=== PATIENT | female | born 1960 | race Caucasian/White ===

== ENCOUNTER 2019-12-10 17:16 | Emergency (ER) | payer SELFPAY ==
[2019-12-10] MEDS ORDERED: HYDRALAZINE HCL 20 MG/ML VIAL ONE (17:56)
[2019-12-10 18:13] LABS: Basophils % 0.8 % (0-1.3); Hematocrit 49.1 % (36.0-45.0); MPV 8.8 fL (7.6-11.3); RBC Red Blood Cell Count 5.07 M/uL (3.86-4.86)
[2019-12-10 18:15] LABS: Protime INR 0.92
--- NOTE | 2019-12-10 18:29 | RAD REPORT ---
EXAM DESCRIPTION: CT - Head Brain Wo Cont - 12/10/2019 6:14 pm CLINICAL HISTORY: Dizziness COMPARISON: None TECHNIQUE: Computed axial tomography of the head was obtained. IV contrast was not requested. All CT scans are performed using dose optimization technique as appropriate and may include automated exposure control or mA/KV adjustment according to patient size. FINDINGS: An intracranial bleed is not seen . The ventricles are normal in caliber. No extra-axial fluid collection is noted. Mioderate low-density areas within periventricular, deep and subcortical white matter likely represen t ischemic changes secondary to small vessel disease. Fluid within the sinuses/ mastoids is not seen. IMPRESSION: No acute intracranial abnormality is seen. If patient's symptoms persist MRI of the bra in would be recommended.
[2019-12-10 18:30] LABS: ALT/SGPT 50 U/L (12-78); AST/SGOT 20 U/L (15-37); Albumin 4.5 g/dL (3.4-5.0); Alkaline Phosphatase 96 U/L (45-117); BUN Blood Urea Nitrogen 13 mg/dL (7-18); Bicarbonate 27 mmol/L (21-32); Bilirubin Direct 0.1 mg/dL (0-0.2); Bilirubin Total 0.3 mg/dL (0.2-1.0); Glucose Level 104 mg/dL (74-106); Magnesium 2.6 mg/dL (1.8-2.4); NT PRO-BNP 62 pg/mL (<125); Potassium 3.6 mmol/L (3.5-5.1); Protein, Total 8.8 g/dL (6.4-8.2); Sodium Level 140 mmol/L (136-145); Troponin (Emerg Dept Use Only) < 0.02 ng/mL (0.0-0.045)
--- NOTE | 2019-12-10 18:30 | RAD REPORT ---
EXAM DESCRIPTION: Sukhwinder Single View12/10/2019 6:24 pm CLINICAL HISTORY: Hypertension COMPARISON: none FINDINGS: The lungs appear clear of acute infiltrate. The heart is normal size IMPRESSION: No acute abnormalities displayed
[2019-12-10] MEDS ORDERED: DIAZEPAM 5 MG TABLET ONE (18:48)
[2019-12-10] MEDS ORDERED: MECLIZINE HCL 12.5 MG TAB ONE (18:48)
--- NOTE | 2019-12-10 19:17 | ER ---
Nurse's Notes [facility] Name: Natacha Villalba Age: 59 yrs Sex: Female : 1960 Arrival Date: 12/10/2019 Time: 17:17 Bed 13 Private MD: Diagnosis: Dizziness and giddiness;Hypertensive heart disease Presentation: 12/09 17:28 Chief complaint: Patient states: Dizziness worse than usual for the past 4 days with ll1 EDGAR. No fever. No N/V/D. Coronavirus screen: Client denies travel out of the [place] in the last 14 days. At this time, the client does not indicate any symptoms associated with coronavirus-19. Ebola Screen: Patient denies travel to an Ebola-affected area in the 21 days before illness onset. Initial Sepsis Screen: Does the patient meet any 2 criteria? HR > 90 bpm. Risk Assessment: Do you want to hurt yourself or someone else? Patient reports no desire to harm self or others. Onset of symptoms was December 06, 2019. 17:28 Method Of Arrival: Wheelchair ll1 17:28 Acuity: UGO 2 ll1 Triage Assessment: 17:30 General: Appears distressed, uncomfortable, Behavior is cooperative, appropriate for bp age, anxious. Pain: Complains of pain in head. EENT: No deficits noted. Neuro: Reports dizziness, headache. Cardiovascular: No deficits noted. Respiratory: No deficits noted. GI: No signs and/or symptoms were reported involving the gastrointestinal system. : No signs and/or symptoms were reported regarding the genitourinary system. Derm: No deficits noted. Musculoskeletal: No deficits noted. Historical: - Allergies: 17:30 PENICILLINS; ll1 - PMHx: 17:30 Hypertension; tachycardia; ll1 - PSHx: 17:30 Tubal ligation; ll1 - Immunization history:: Flu vaccine is not up to date. - Social history:: Smoking status: Patient reports the use of cigarette tobacco products, smokes one-half pack cigarettes per day. Screenin:30 Abuse screen: Denies threats or abuse. Denies injuries from another. Nutritional bp screening: No deficits noted. Tuberculosis screening: No symptoms or risk factors identified. Fall Risk None identified. Assessment: 17:30 General: SEE TRIAGE NOTE. bp 18:00 Reassessment: PT TO CT. bp 18:26 Reassessment: PT RETURNED FROM CT. bp 19:10 General: Appears in no apparent distress. comfortable, Behavior is calm, cooperative, rr5 appropriate for age, EDprovider aware for the BP reading with order made and carried out. Pain: Denies pain. Neuro: Level of Consciousness is awake, alert, obeys commands, Oriented to person, place, time, situation, Reports dizziness. Cardiovascular: Capillary refill < 3 seconds Patient's skin is warm and dry. Respiratory: Airway is patent Respiratory effort is even, unlabored, Respiratory pattern is regular, symmetrical. GI: No signs and/or symptoms were reported involving the gastrointestinal system. : No signs and/or symptoms were reported regarding the genitourinary system. EENT: No signs and/or symptoms were reported regarding the EENT system. Derm: Skin is intact, is healthy with good turgor, Skin temperature is warm. Musculoskeletal: Circulation, motion, and sensation intact. Capillary refill < 3 seconds. 19:47 Reassessment: Patient appears in no apparent distress at this time. Patient is alert, rr5 oriented x 3, equal unlabored respirations, skin warm/dry/pink. discharge instruction given and explained without complaints made. ED provider explained the plan of care and patient agreed\E\ Patient states feeling better. Patient states symptoms have improved. Vital Signs: 17:28 BP 226 / 113; Pulse 98; Resp 18; Temp 99.0; Pulse Ox 95% ; Weight 63.5 kg; Height 5 ft. ll1 3 in. (160.02 cm); Pain 6/10; 18:30 BP 196 / 82; Pulse 105; Resp 20; Pulse Ox 95% ; bp 19:00 BP 187 / 81; Pulse 110; Resp 17; Pulse Ox 94% ; bp 19:16 BP 188 / 82; Pulse 108; Resp 16; Pulse Ox 99% ; rr5 19:47 BP 181 / 82; Pulse 99; Resp 19; Pulse Ox 99% ; rr5 17:28 Body Mass Index 24.80 (63.50 kg, 160.02 cm) ll1 ED Course: 17:17 Patient arrived in ED. ds1 17:30 Triage completed. ll1 17:30 Patient has correct armband on for positive identification. Bed in low position. Call bp light in reach. Side rails up X2. Adult w/ patient. 17:31 Arm band placed on Patient placed in an exam room, on a stretcher. ll1 17:40 Foreign Mccrary MD is Attending Physician. kdr 17:42 Ze Lopez, RN is Primary Nurse. bp 18:00 EKG done, by ED staff, reviewed by Foreign Mccrary MD. jp3 18:04 Initial lab(s) drawn, by ga, sent to lab. Inserted saline lock: 20 gauge in right jp3 antecubital area, using aseptic technique. Blood collected. 18:10 X-ray(s) taken. jp3 19:35 Removal of peripheral IV. Catheter intact, dressing applied. jp3 Administered Medications: 17:45 Drug: hydrALAZINE 10 mg Route: IV; Rate: calculated rate; Site: right antecubital; bp 19:00 Follow up: Response: Blood pressure is lowered; IV Status: Completed infusion rr5 18:30 Drug: Valium 5 mg Route: PO; bp 19:48 Follow up: Response: No adverse reaction rr5 18:30 Drug: Antivert 25 mg Route: PO; bp 19:48 Follow up: Response: No adverse reaction rr5 19:16 Drug: Lisinopril 10 mg Route: PO; rr5 19:48 Follow up: Response: No adverse reaction rr5 Outcome: 19:15 Discharge ordered by . kdr 19:48 Patient left the ED. rr5 Signatures: Foreign Mccrary MD MD kdr Amarilys Salas ds1 Ze Lopez, RN RN bp Kavon Martinez jp3 Mode Stanley RN RN rr5 Constantino Pérez RN RN ll1 Corrections: (The following items were deleted from the chart) 17:34 17:28 Acuity: UGO 3 ll1 ll1
--- NOTE | 2019-12-10 19:17 | EDPHYS ---
Physician Documentation [facility] Name: Natacha Villalba Age: 59 yrs Sex: Female : 1960 Arrival Date: 12/10/2019 Time: 17:17 Bed 13 Private MD: ED Physician Foreign Mccrary HPI: 12/10 08:29 This 59 yrs old Female presents to ER via Wheelchair with complaints of kdr Dizziness. 08:29 The patient presents with dizziness, feeling off balance, vertigo. Onset: The kdr symptoms/episode began/occurred gradually, 4 day(s) ago. Context: occurred at home, occurred while the patient was at rest, just prior to the episode the patient experienced no apparent symptoms. Modifying factors: The symptoms are alleviated by holding head still, the symptoms are aggravated by movement of head, standing up. Associated signs and symptoms: Pertinent positives: nausea, Pertinent negatives: abdominal pain, agitation, ataxia, blurred vision, chest pain, combativeness, confusion, diaphoresis, focal weakness, head injury, headache, near-syncope, numbness, palpitations, , seizure, shortness of breath, syncope, tingling, vomiting. Severity of symptoms: At their worst the symptoms were mild moderate just prior to arrival, in the emergency department the symptoms are unchanged. Patient's baseline: Neuro: alert and fully oriented, Motor: no deficits, Ambulation: walks without assistance, Speech: normal, The patient has a previous history of The patient has a long history of intermittent. The episode today is not more severe but has been more persistent. She normally has these similar episodes that last a few days but this episode had been ongoing (wax/wane) for about four days.. The patient has experienced similar episodes in the past, multiple times. The patient has not recently seen a physician. Historical: - Allergies: 12/09 17:30 PENICILLINS; ll1 - PMHx: 17:30 Hypertension; tachycardia; ll1 - PSHx: 17:30 Tubal ligation; ll1 - Immunization history:: Flu vaccine is not up to date. - Social history:: Smoking status: Patient reports the use of cigarette tobacco products, smokes one-half pack cigarettes per day. ROS: 12/10 08:29 Constitutional: Negative for fever, chills, and weight loss, Eyes: Negative for injury, kdr pain, redness, and discharge, ENT: Negative for injury, pain, and discharge, Neck: Negative for injury, pain, and swelling, Cardiovascular: Negative for chest pain, palpitations, and edema, Respiratory: Negative for shortness of breath, cough, wheezing, and pleuritic chest pain, Abdomen/GI: Negative for abdominal pain, nausea, vomiting, diarrhea, and constipation, Back: Negative for injury and pain, : Negative for injury, bleeding, discharge, and swelling, MS/Extremity: Negative for injury and deformity, Skin: Negative for injury, rash, and discoloration, Psych: Negative for depression, anxiety, suicide ideation, homicidal ideation, and hallucinations, Allergy/Immunology: Negative for hives, rash, and allergies, Endocrine: Negative for neck swelling, polydipsia, polyuria, polyphagia, and marked weight changes, Hematologic/Lymphatic: Negative for swollen nodes, abnormal bleeding, and unusual bruising. Neuro: Positive for dizziness, Negative for altered mental status, headache, hearing loss, loss of consciousness, numbness, seizure activity, speech changes, syncope, near syncope, tingling, tinnitus, tremor, visual changes, weakness. Exam: 12/09 18:04 ECG was reviewed by the Attending Physician. kdr 12/10 08:29 Constitutional: This is a well developed, well nourished patient who is awake, alert, kdr and in no acute distress. Head/Face: Normocephalic, atraumatic. Eyes: Pupils equal round and reactive to light, extra-ocular motions intact. Lids and lashes normal. Conjunctiva and sclera are non-icteric and not injected. Cornea within normal limits. Periorbital areas with no swelling, redness, or edema. Neck: Trachea midline, no thyromegaly or masses palpated, and no cervical lymphadenopathy. Supple, full range of motion without nuchal rigidity, or vertebral point tenderness. No Meningismus. Chest/axilla: Normal chest wall appearance and motion. Nontender with no deformity. No lesions are appreciated. Cardiovascular: Regular rate and rhythm with a normal S1 and S2. No gallops, murmurs, or rubs. Normal PMI, no JVD. No pulse deficits. Respiratory: Lungs have equal breath sounds bilaterally, clear to auscultation and percussion. No rales, rhonchi or wheezes noted. No increased work of breathing, no retractions or nasal flaring. Abdomen/GI: Soft, non-tender, with normal bowel sounds. No distension or tympany. No guarding or rebound. No evidence of tenderness throughout. Back: No spinal tenderness. No costovertebral tenderness. Full range of motion. Skin: Warm, dry with normal turgor. Normal color with no rashes, no lesions, and no evidence of cellulitis. MS/ Extremity: Pulses equal, no cyanosis. Neurovascular intact. Full, normal range of motion. Neuro: Awake and alert, GCS 15, oriented to person, place, time, and situation. Cranial nerves II-XII grossly intact. Motor strength 5/5 in all extremities. Sensory grossly intact. Cerebellar exam normal. Normal gait. Psych: Awake, alert, with orientation to person, place and time. Behavior, mood, and affect are within normal limits. Eyes: Pupils: Nystagmus: is not appreciated. Vital Signs: 12/09 17:28 BP 226 / 113; Pulse 98; Resp 18; Temp 99.0; Pulse Ox 95% ; Weight 63.5 kg; Height 5 ft. ll1 3 in. (160.02 cm); Pain 6/10; 18:30 BP 196 / 82; Pulse 105; Resp 20; Pulse Ox 95% ; bp 19:00 BP 187 / 81; Pulse 110; Resp 17; Pulse Ox 94% ; bp 19:16 BP 188 / 82; Pulse 108; Resp 16; Pulse Ox 99% ; rr5 19:47 BP 181 / 82; Pulse 99; Resp 19; Pulse Ox 99% ; rr5 17:28 Body Mass Index 24.80 (63.50 kg, 160.02 cm) ll1 MDM: 19:15 Patient medically screened. kdr 12/10 08:29 Data reviewed: vital signs, nurses notes, lab test result(s), radiologic studies. kdr Counseling: I had a detailed discussion with the patient and/or guardian regarding: the historical points, exam findings, and any diagnostic results supporting the discharge/admit diagnosis, lab results, radiology results, the need for outpatient follow up. ED course: The patient improved substantially with the interventions given. She did not completely resolved but improved. She was happy with the care provided and the plan for discharge and follow-up.. 12/09 17:41 Order name: Basic Metabolic Panel; Complete Time: 18:54 kdr 12/09 17:41 Order name: CBC with Diff; Complete Time: 18:54 [facility] 12/09 17:41 Order name: LFT's; Complete Time: 18:54 [facility] 12/09 17:41 Order name: Magnesium; Complete Time: 18:54 [facility] 12/09 17:41 Order name: NT PRO-BNP; Complete Time: 18:54 [facility] 12/09 17:41 Order name: PT-INR; Complete Time: 18:54 [facility] 12/09 17:41 Order name: Troponin (emerg Dept Use Only); Complete Time: 18:54 [facility] 12/09 17:41 Order name: XRAY Chest (1 view) kdr 12/09 17:41 Order name: CT Head Brain wo Cont kdr 12/09 18:30 Order name: CT; Complete Time: 18:54 EDMS 12/09 18:31 Order name: RAD; Complete Time: 18:54 EDMS 12/09 17:41 Order name: EKG; Complete Time: 17:42 [facility] 12/09 17:41 Order name: Cardiac monitoring; Complete Time: 18:10 [facility] 12/09 17:41 Order name: EKG - Nurse/Tech; Complete Time: 18:10 [facility] 12/09 17:41 Order name: IV Saline Lock; Complete Time: 18:10 [facility] 12/09 17:41 Order name: Labs collected and sent; Complete Time: 18:10 [facility] 12/09 17:41 Order name: O2 Per Protocol; Complete Time: 18:10 [facility] 12/09 17:41 Order name: O2 Sat Monitoring; Complete Time: 18:10 kdr EC/26 18:04 Rate is 96 beats/min. Rhythm is regular, Sinus Rhythm with No ectopy. QRS [place] is kdr Normal. OR interval is normal. QRS interval is normal. QT interval is normal. Clinical impression: NSR w/ Non-specific ST/T Changes. Administered Medications: 17:45 Drug: hydrALAZINE 10 mg Route: IV; Rate: calculated rate; Site: right antecubital; bp 19:00 Follow up: Response: Blood pressure is lowered; IV Status: Completed infusion rr5 18:30 Drug: Valium 5 mg Route: PO; bp 19:48 Follow up: Response: No adverse reaction rr5 18:30 Drug: Antivert 25 mg Route: PO; bp 19:48 Follow up: Response: No adverse reaction rr5 19:16 Drug: Lisinopril 10 mg Route: PO; rr5 19:48 Follow up: Response: No adverse reaction rr5 Disposition: 12/10/19 19:15 Discharged to Home. Impression: Dizziness and giddiness, Hypertensive heart disease. - Condition is Stable. - Discharge Instructions: Hypertension, [id number], Vertigo, [id number], Dizziness, [id number]. - Prescriptions for Meclizine 25 mg Oral Tablet - take 1 tablet by ORAL route every 8 hours As needed; 30 tablet. Lisinopril 10 mg Oral Tablet - take 1 tablet by ORAL route once daily; 20 tablet. - Medication Reconciliation Form, Thank You Letter form. - Follow up: Private Physician; When: 2 - 3 days; Reason: If symptoms return, Further diagnostic work-up, Recheck today's complaints, Continuance of care, Re-evaluation by your physician. - Problem is an ongoing problem. - Symptoms have improved. Signatures: Dispatcher [employer] EDMS Foreign Mccrary MD MD kdr Ze Lopez RN RN bp Mode Stanley, RN RN rr5 Constantino Pérez RN RN ll1 Corrections: (The following items were deleted from the chart) 19:48 19:15 12/10/2019 19:15 Discharged to Home. Impression: Dizziness and giddiness; rr5 Hypertensive heart disease. Condition is Stable. Forms are Medication Reconciliation Form, Thank You Letter, Antibiotic Education, Prescription Opioid Use. Follow up: Private Physician; When: 2 - 3 days; Reason: If symptoms return, Further diagnostic work-up, Recheck today's complaints, Continuance of care, Re-evaluation by your physician. Problem is an ongoing problem. Symptoms have improved. kdr
[2019-12-10] MEDS ORDERED: lisinopriL 10 MG TAB ONE (19:27)
[2019-12-10 20:27] VITALS: TEMP 99
[2019-12-10 20:31] VITALS: O2SAT 99
[2019-12-10 20:32] VITALS: BP 181/82
== END 2019-12-10 19:48 | disposition home or self-care (01) ==
LOC: ER 17:16
DX: I11.9 Hypertensive heart disease without heart failure (principal); I10 Essential (primary) hypertension; F17.210 Nicotine dependence, cigarettes, uncomplicated; Z88.0 Allergy status to penicillin
CPT/HCPCS: 36415; 70450; 71045; 80048; 80076; 83735; 83880; 84484; 85025; 85610; 93005; 96365; 99284; J0360; J8597

== ENCOUNTER 2020-04-26 01:26 | Inpatient (IN) | payer SELFPAY ==
[2020-04-26 03:15] LABS: Urine Blood NEGATIVE (NEG); Urine Glucose NEGATIVE (NEG); Urine Protein NEGATIVE (NEG); Urine pH 6.5 (5.0-7.0)
[2020-04-26 03:29] LABS: Basophils % 0.7 % (0-1.3); Hematocrit 42.1 % (36.0-45.0); Lymphocytes % 31.3 % (15.3-44.8); MPV 8.5 fL (7.6-11.3); RBC Red Blood Cell Count 4.33 M/uL (3.86-4.86)
[2020-04-26 03:40] LABS: Protime INR 0.91
[2020-04-26 03:52] LABS: Amylase 49 U/L (25-115); BUN Blood Urea Nitrogen 11 mg/dL (7-18); Bicarbonate 26 mmol/L (21-32); CKMB Creatine Kinase MB < 1.0 ng/mL (0.3-3.6); Glucose Level 112 mg/dL (74-106); Lipase 199 U/L (73-393); Magnesium 2.5 mg/dL (1.8-2.4); Potassium 3.7 mmol/L (3.5-5.1); Sodium Level 144 mmol/L (136-145); Troponin (Emerg Dept Use Only) < 0.02 ng/mL (0.0-0.045)
[2020-04-26 03:58] LABS: Barbiturates NEGATIVE (NEGATIVE); Benzodiazepines NEGATIVE (NEGATIVE); Cocaine POSITIVE (NEGATIVE); METHAMPHETAM NEGATIVE (NEGATIVE); Methadone NEGATIVE (NEGATIVE); Opiates NEGATIVE (NEGATIVE); Phencyclidine NEGATIVE (NEGATIVE); THC Cannibis NEGATIVE (NEGATIVE)
--- NOTE | 2020-04-26 04:02 | ER ---
Nurse's Notes [facility] Name: Natacha Villalba Age: 59 yrs Sex: Female : 1960 Arrival Date: 04/26/2020 Time: 02:32 Bed 16 Private MD: Diagnosis: Cerebral infarction-rigth frontoparietal Presentation: 04/26 02:47 Chief complaint: Patient states: I started having weakness in my left leg at 1pm jb4 yesterday. I tried to sleep it off. I was stumbling and bumping into things and it feels like my leg is dragging. Now my left arm is starting to feel similar. Coronavirus screen: Client denies travel out of the [place] in the last 14 days. At this time, the client does not indicate any symptoms associated with coronavirus-19. Ebola Screen: No symptoms or risks identified at this time. Initial Sepsis Screen: Does the patient meet any 2 criteria? HR > 90 bpm. Yes Does the patient have a suspected source of infection? No. Patient's initial sepsis screen is negative. Risk Assessment: Do you want to hurt yourself or someone else? Patient reports no desire to harm self or others. Onset of symptoms was April 25, 2020 at 13:00. Transition of care: patient was not received from another setting of care. 02:47 Method Of Arrival: Wheelchair jb4 02:47 Acuity: UGO 3 jb4 Triage Assessment: 02:50 Neuro: Level of Consciousness is awake, alert, obeys commands, Oriented to person, jb4 place, time, situation, Returned Case Inspector are equal bilaterally Weakness in left leg(s) Speech is normal, Facial symmetry appears normal, Pupils are PERRLA, Pt reports that the sensation in the left leg is more dull than the right.. Provider made aware of symptoms, stat Head CT ordered.. Historical: - Allergies: 02:50 PENICILLINS; jb4 - Home Meds: 04:25 amlodipine 2.5 mg tab 2 tabs once daily [Active]; losartan 50 mg oral tab 1 tab 2 times sf per day [Active]; - PMHx: 02:50 Hypertension; Tachycardia; jb4 04:25 High Cholesterol; sf - PSHx: 02:50 Tubal ligation; jb4 - Immunization history:: Adult Immunizations up to date. - Social history:: Smoking status: Patient denies any tobacco usage or history of. Patient/guardian denies using alcohol, street drugs, Patient/guardian denies using. - Family history:: not pertinent. Screenin:15 Abuse screen: Denies threats or abuse. Denies injuries from another. Nutritional sf screening: No deficits noted. Tuberculosis screening: No symptoms or risk factors identified. Never had TB. Possible symptoms: None Risk factors: None. Fall Risk None identified. No fall in past 12 months (0 pts). No secondary diagnosis (0 pts). IV access (20 points). Ambulatory Aid- None/Bed Rest/Nurse Assist (0 pts). Gait- Normal/Bed Rest/Wheelchair (0 pts) Mental Status- Oriented to own ability (0 pts). Total Lloyd Fall Scale indicates No Risk (0-24 pts). 04:04 Patient has been NPO before screening. The patient is alert, able to follow commands. sf The patient does not exhibit slurred or garbled speech The patient is not exhibiting difficulty speaking. The patient does not exhibit difficulty understanding words. The patient is able to swallow own secretions with no drooling or need for suction. Patient tolerated one teaspoon of water. No drooling, immediate coughing, gurgling, or clearing of the throat was noted. The patient tolerated 90mL of water. No drooling, immediate coughing, gurgling, or clearing of the throat was noted. The patient passed the bedside swallow screening. Oral medications may be given as ordered. Contact Physician for further diet orders. Assessment: 02:45 General: Appears in no apparent distress. comfortable, Behavior is calm, cooperative, sf appropriate for age. Pain: Denies pain. Neuro: Level of Consciousness is awake, alert, obeys commands, Oriented to person, place, time, situation, Appropriate for age Weakness in left leg(s) Gait is steady, Speech is normal, Facial symmetry appears normal, Pupils are PERRLA, paresthesias in left leg Reports paresthesias in left leg weakness in left leg Denies blurred vision difficulty swallowing, headache. Cardiovascular: No deficits noted. Patient's skin is warm and dry. Rhythm is sinus rhythm. Respiratory: No deficits noted. Airway is patent Respiratory effort is even, unlabored, Respiratory pattern is regular, symmetrical. Vital Signs: 02:47 BP 183 / 107; Pulse 99; Resp 16; Temp 98.5(O); Pulse Ox 99% on R/A; Weight 67.59 kg jb4 (R); Height 5 ft. 3 in. (160.02 cm) (R); Pain 0/10; 03:15 BP 132 / 76; Pulse 86; Resp 16; Pulse Ox 96% ; sf 03:30 BP 160 / 99; Pulse 90; Resp 16; Pulse Ox 97% ; sf 03:45 BP 147 / 84; Pulse 89; Resp 16; Pulse Ox 96% ; sf 05:11 BP 150 / 114; Pulse 86; Resp 16; sf 02:47 Body Mass Index 26.39 (67.59 kg, 160.02 cm) jb4 NIH Stroke Scale Scores: 02:45 NIHSS Score: 2 sf 03:34 NIHSS Score: 2 tn2 ED Course: 02:32 Patient arrived in ED. am4 02:33 Joellen Art MD is Attending Physician. ma2 02:36 Jesús Quijano, BAUDILIO is Primary Nurse. sf 02:49 Triage completed. jb4 02:50 Arm band placed on right wrist. jb4 02:59 CT Head Brain wo Cont In Process Unspecified. EDMS 03:00 Bed in low position. Call light in reach. Side rails up X2. burner hand on. Pulse sf ox on. NIBP on. Door closed. Noise minimized. Warm blanket given. Verbal reassurance given. 03:15 Inserted saline lock: 20 gauge in left forearm, using aseptic technique. Blood sf collected. 03:15 Initial lab(s) drawn, by md, sent to lab. sf 04:01 Alexis Murphy is Hospitalizing Provider. ma2 04:14 Diet: Patient given water. Given turkey sandwich. sf 04:25 Assisted to bathroom. sf 04:25 No provider procedures requiring assistance completed. Patient admitted, IV remains in sf place. 04:50 Report given to Ketty Simpson RN. sf 05:34 EKG done, by ED staff, reviewed by Joellen Art MD. sf Administered Medications: 04:13 Drug: Aspirin Chewable Tablet 324 mg Route: PO; sf 05:39 Follow up: Response: No adverse reaction sf 04:13 Drug: PlaVIX 75 mg Route: PO; sf 05:39 Follow up: Response: No adverse reaction sf 04:14 Not Given (Medication not available): foLIC Acid 1 mg IVPB once sf Outcome: 04:01 Decision to Hospitalize by Provider. ma2 04:50 Condition: stable sf 04:50 Admitted to ER Hold. Please see [facility] for further documentation. sf 14:10 Patient left the ED. jd3 NIH Stroke Scale - NIH Stroke Score Date: 04/26/2020 Time: 02:45 Total Score = 2 1a. Level of Consciousness (LOC) - 0(Alert) 1b. Level of Consciousness (LOC) (Year \T\ Age) - 0(Both) 1c. LOC Commands (Open \T\ Closes Eyes/Veterinary Microbiologist) - 0(Both) 2. Best Gaze (Lateral Gaze Paresis) - 0(Normal) 3. Visual Field Loss - 0(No visual loss) 4. Facial Palsy - 0(Normal) 5a. Left Arm: Motor (10-second hold) - 1(Drift) 5b. Right Arm: Motor (10-second hold) - 0(No drift) 6a. Left Leg: Motor (5-second hold - always test supine) - 0(No drift) 6b. Right Leg: Motor (5-second hold - always test supine) - 0(No drift) 7. Limb Ataxia (finger/nose \T\ heel/benton - test with eyes open) - 0(Absent) 8. Sensory Loss (pinprick arms/legs/face) - 1(Mild to moderate loss) 9. Best Language: Aphasia (description/naming/reading) - 0(No aphasia) 10. Dysarthria (speech clarity - read or repeat words) - 0(Normal) 11. Extinction and Inattention (visual/tactile/auditory/spatial/personal) - 0(No abnormality) Initials: sf NIH Stroke Scale - NIH Stroke Score Date: 04/26/2020 Time: 03:34 Total Score = 2 1a. Level of Consciousness (LOC) - 0(Alert) 1b. Level of Consciousness (LOC) (Year \T\ Age) - 0(Both) 1c. LOC Commands (Open \T\ Closes Eyes/Veterinary Microbiologist) - 0(Both) 2. Best Gaze (Lateral Gaze Paresis) - 0(Normal) 3. Visual Field Loss - 0(No visual loss) 4. Facial Palsy - 0(Normal) 5a. Left Arm: Motor (10-second hold) - 0(No drift) 5b. Right Arm: Motor (10-second hold) - 0(No drift) 6a. Left Leg: Motor (5-second hold - always test supine) - 1(Drift) 6b. Right Leg: Motor (5-second hold - always test supine) - 0(No drift) 7. Limb Ataxia (finger/nose \T\ heel/benton - test with eyes open) - 0(Absent) 8. Sensory Loss (pinprick arms/legs/face) - 1(Mild to moderate loss) 9. Best Language: Aphasia (description/naming/reading) - 0(No aphasia) 10. Dysarthria (speech clarity - read or repeat words) - 0(Normal) 11. Extinction and Inattention (visual/tactile/auditory/spatial/personal) - 0(No abnormality) Initials: anahi Signatures: Dispatcher [employer] EDMS Johny Correa RN RN jbZeke Huitron RN RN jd3 Alzahri, Mohammad, MD MD ma2 Machelle Feliz Steven, RN RN sf Corrections: (The following items were deleted from the chart) 02:52 02:50 Neuro: Level of Consciousness is awake, alert, obeys commands, Oriented jb4 to person, place, time, situation, Returned Case Inspector are equal bilaterally Weakness in left leg(s) Speech is normal, Facial symmetry appears normal, Pupils are PERRLA, Pt reports that the sensation in the left leg is more dull than the right.. jb4 04: 04:25 Home Meds: lisinopril 10 mg Oral tab 1 tab once daily; sf sf : 04:25 Home Meds: meclizine 25 mg Oral tab 1 tab 3 times per day; sf sf 04:25 Home Meds: aspirin 81 mg Oral TbEC 1 tab once daily; sf sf 04:25 Home Meds: clonidine HCl 0.1 mg Oral tab 1 tab PRN; sf sf 04:25 Home Meds: amlodipine 5 mg tab 1 tab once daily; sf sf 04:25 Home Meds: rosuvastatin 10 mg oral tab 1 tab once daily; sf sf 05:27 05:26 Admitted to ER Hold. Please see [email or web address] for further documentation. sf sf
--- NOTE | 2020-04-26 04:02 | EDPHYS ---
Physician Documentation [facility] Name: Natacha Villalba Age: 59 yrs Sex: Female : 1960 Arrival Date: 04/26/2020 Time: 02:32 Bed 16 Private MD: ED Physician Joellen Art HPI: 04/26 03:33 This 59 yrs old Female presents to ER via Wheelchair with complaints of Leg ma2 Pain. 03:34 The patient presents with pain, that is acute. Onset: The symptoms/episode ma2 began/occurred acutely, 14 hour(s) ago. Associated signs and symptoms: Pertinent negatives numbness, swelling, vomiting. Severity of symptoms: At their worst the symptoms were mild, in the emergency department the symptoms are unchanged. The patient has experienced similar episodes in the past. patient is here for left LE weakness that started at 1 pm yesterday and improving. she had same symptoms twice last week and it resolved. however, this time it did not resolved and so she decided to come to er. no other symptosm . Historical: - Allergies: 02:50 PENICILLINS; jb4 - Home Meds: 04:25 amlodipine 2.5 mg tab 2 tabs once daily [Active]; losartan 50 mg oral tab 1 tab 2 times sf per day [Active]; - PMHx: 02:50 Hypertension; Tachycardia; jb4 04:25 High Cholesterol; sf - PSHx: 02:50 Tubal ligation; jb4 - Immunization history:: Adult Immunizations up to date. - Social history:: Smoking status: Patient denies any tobacco usage or history of. Patient/guardian denies using alcohol, street drugs, Patient/guardian denies using. - Family history:: not pertinent. ROS: 03:34 Constitutional: Negative for fever, chills, and weight loss. ma2 03:34 All other systems are negative. Exam: 03:34 Constitutional: This is a well developed, well nourished patient who is awake, alert, ma2 and in no acute distress. Chest/axilla: Normal chest wall appearance and motion. Nontender with no deformity. No lesions are appreciated. Cardiovascular: Regular rate and rhythm with a normal S1 and S2. No gallops, murmurs, or rubs. Normal PMI, no JVD. No pulse deficits. Respiratory: Lungs have equal breath sounds bilaterally, clear to auscultation and percussion. No rales, rhonchi or wheezes noted. No increased work of breathing, no retractions or nasal flaring. Abdomen/GI: Soft, non-tender, with normal bowel sounds. No distension or tympany. No guarding or rebound. No evidence of tenderness throughout. Skin: Warm, dry with normal turgor. Normal color with no rashes, no lesions, and no evidence of cellulitis. MS/ Extremity: Pulses equal, no cyanosis. Neurovascular intact. Full, normal range of motion. Neuro: Awake and alert, GCS 15, oriented to person, place, time, and situation. Cranial nerves II-XII grossly intact. Motor strength is 4/5 in left leg,, and 5/5 in all other 3 extremities. Sensory grossly intact. Cerebellar exam normal. Normal gait. Vital Signs: 02:47 BP 183 / 107; Pulse 99; Resp 16; Temp 98.5(O); Pulse Ox 99% on R/A; Weight 67.59 kg jb4 (R); Height 5 ft. 3 in. (160.02 cm) (R); Pain 0/10; 03:15 BP 132 / 76; Pulse 86; Resp 16; Pulse Ox 96% ; sf 03:30 BP 160 / 99; Pulse 90; Resp 16; Pulse Ox 97% ; sf 03:45 BP 147 / 84; Pulse 89; Resp 16; Pulse Ox 96% ; sf 05:11 BP 150 / 114; Pulse 86; Resp 16; sf 02:47 Body Mass Index 26.39 (67.59 kg, 160.02 cm) jb4 NIH Stroke Scale Scores: 02:45 NIHSS Score: 2 sf 03:34 NIHSS Score: 2 ma2 MDM: 02:33 Patient medically screened. ma2 03:34 Differential diagnosis: stroke vs alcohol intoxication vs migraine vs hypokalemia. Data ma2 reviewed: vital signs, nurses notes. Counseling: I had a detailed discussion with the patient and/or guardian regarding: the historical points, exam findings, and any diagnostic results supporting the discharge/admit diagnosis, the presence of at least one elevated blood pressure reading (>120/80) during this emergency department visit. ED course: ct head shoes acute/subacute frontal stroke, bp is 130/80 now, patient is not tpa candidate as she is out of the 3/4.5 hours window. . 06:07 ED course: i called and left a voice note to dr. Delong with patient information . nh04/26 02:47 Order name: UDS; Complete Time: 04:00 nh04/26 02:47 Order name: Troponin (emerg Dept Use Only) [facility] 04/26 02:47 Order name: Lipase [facility] 04/26 02:47 Order name: Magnesium [facility] 04/26 02:47 Order name: Ckmb [facility] 04/26 02:47 Order name: Amylase, Serum [facility] 04/26 02:47 Order name: Basic Metabolic Panel [facility] 04/26 02:47 Order name: CBC with Diff; Complete Time: 03:56 [facility] 04/26 02:47 Order name: Protime (+inr); Complete Time: 03:56 nh04/26 02:47 Order name: Ptt, Activated; Complete Time: 03:56 [facility] 04/26 03:04 Order name: Urine Dipstick--Ancillary (enter results); Complete Time: 03:56 04/26 06:17 Order name: COVID-19 : Document "Date of Symptom Onset" if Symptomatic. tt3 04/26 06:37 Order name: CORONAVIRUS [facility] 04/26 06:53 Order name: Hemoglobin A1c [facility] 04/26 02:47 Order name: CT Head Brain wo Cont 4 04/26 02:47 Order name: EKG; Complete Time: 02:48 [facility] 04/26 02:47 Order name: Cardiac monitoring; Complete Time: 03:19 [facility] 04/26 02:47 Order name: EKG - Nurse/Tech; Complete Time: 05:38 [facility] 04/26 02:47 Order name: IV Saline Lock; Complete Time: 03:20 [facility] 04/26 04:18 Order name: CONS Physician Consult [facility] 04/26 07:00 Order name: T4,Total [facility] 04/26 07:00 Order name: Thyroid Stimulating Hormone [facility] 04/26 07:20 Order name: SARS-COV-2 RT PCR [facility] 04/26 09:09 Order name: US [facility] 04/26 11:51 Order name: Troponin I [facility] 04/26 02:47 Order name: Labs collected and sent; Complete Time: 03:20 ma04/26 02:47 Order name: NPO; Complete Time: 03:20 04/26 02:47 Order name: O2 Per Protocol; Complete Time: 03:20 04/26 02:47 Order name: O2 Sat Monitoring; Complete Time: 03:20 04/26 02:47 Order name: Stroke Swallow Screen; Complete Time: 04:02 ma2 Administered Medications: 04:13 Drug: Aspirin Chewable Tablet 324 mg Route: PO; sf 05:39 Follow up: Response: No adverse reaction sf 04:13 Drug: PlaVIX 75 mg Route: PO; sf 05:39 Follow up: Response: No adverse reaction sf 04:14 Not Given (Medication not available): foLIC Acid 1 mg IVPB once sf Disposition: 04/26/20 04:01 Hospitalization ordered by Alexis Murphy for Inpatient Admission. Preliminary diagnosis is Cerebral infarction - rigth frontoparietal. - Bed requested for Telemetry/MedSurg (Inpatient). - Status is Inpatient Admission. jd3 - Condition is Stable. - Problem is new. - Symptoms are unchanged. NIH Stroke Scale - NIH Stroke Score Date: 04/26/2020 Time: 02:45 Total Score = 2 1a. Level of Consciousness (LOC) - 0(Alert) 1b. Level of Consciousness (LOC) (Year \\T\\ Age) - 0(Both) 1c. LOC Commands (Open \\T\\ Closes Eyes/Silk Blocker) - 0(Both) 2. Best Gaze (Lateral Gaze Paresis) - 0(Normal) 3. Visual Field Loss - 0(No visual loss) 4. Facial Palsy - 0(Normal) 5a. Left Arm: Motor (10-second hold) - 1(Drift) 5b. Right Arm: Motor (10-second hold) - 0(No drift) 6a. Left Leg: Motor (5-second hold - always test supine) - 0(No drift) 6b. Right Leg: Motor (5-second hold - always test supine) - 0(No drift) 7. Limb Ataxia (finger/nose \\T\\ heel/benton - test with eyes open) - 0(Absent) 8. Sensory Loss (pinprick arms/legs/face) - 1(Mild to moderate loss) 9. Best Language: Aphasia (description/naming/reading) - 0(No aphasia) 10. Dysarthria (speech clarity - read or repeat words) - 0(Normal) 11. Extinction and Inattention (visual/tactile/auditory/spatial/personal) - 0(No abnormality) Initials: sf NIH Stroke Scale - NIH Stroke Score Date: 04/26/2020 Time: 03:34 Total Score = 2 1a. Level of Consciousness (LOC) - 0(Alert) 1b. Level of Consciousness (LOC) (Year \\T\\ Age) - 0(Both) 1c. LOC Commands (Open \\T\\ Closes Eyes/Silk Blocker) - 0(Both) 2. Best Gaze (Lateral Gaze Paresis) - 0(Normal) 3. Visual Field Loss - 0(No visual loss) 4. Facial Palsy - 0(Normal) 5a. Left Arm: Motor (10-second hold) - 0(No drift) 5b. Right Arm: Motor (10-second hold) - 0(No drift) 6a. Left Leg: Motor (5-second hold - always test supine) - 1(Drift) 6b. Right Leg: Motor (5-second hold - always test supine) - 0(No drift) 7. Limb Ataxia (finger/nose \\T\\ heel/benton - test with eyes open) - 0(Absent) 8. Sensory Loss (pinprick arms/legs/face) - 1(Mild to moderate loss) 9. Best Language: Aphasia (description/naming/reading) - 0(No aphasia) 10. Dysarthria (speech clarity - read or repeat words) - 0(Normal) 11. Extinction and Inattention (visual/tactile/auditory/spatial/personal) - 0(No abnormality) Initials: [id number] Signatures: Dispatcher [employer] [facility] Adia Avendano RN RN dw Roszak, Josh, PA PA jr8 Jenniffer Cardona RN RN tl1 Johny Correa RN RN jb4 Davies, Jonathon, RN RN jd3 Alzahri, Mohammad, MD MD ma2 Jesús Quijnao RN RN sf Corrections: (The following items were deleted from the chart) 02:58 02:48 Head Brain Wo [id number] ordered. EDME EDMS 04:14 02:47 Accucheck ordered. ma2 sf 04:25 04:01 Hospitalization Ordered by Alexis Murphy for Inpatient Admission. tl1 Preliminary diagnosis is Cerebral infarction - rigth frontoparietal. Bed requested for Telemetry/MedSurg (Inpatient). Status is Inpatient Admission. Condition is Stable. Problem is new. Symptoms are unchanged. ma2 04:29 04:25 Home Meds: lisinopril 10 mg Oral tab 1 tab once daily; sf sf 04:29 04:25 Home Meds: meclizine 25 mg Oral tab 1 tab 3 times per day; sf sf 04:29 04:25 Home Meds: aspirin 81 mg Oral TbEC 1 tab once daily; sf sf 04:29 04:25 Home Meds: clonidine HCl 0.1 mg Oral tab 1 tab PRN; sf sf 04:29 04:25 Home Meds: amlodipine 5 mg tab 1 tab once daily; sf sf 04:29 04:25 Home Meds: rosuvastatin 10 mg oral tab 1 tab once daily; sf sf 12:48 04:25 04/26/2020 04:01 Hospitalization Ordered by Alexis Murphy for Inpatient dw Admission. Preliminary diagnosis is Cerebral infarction - rigth frontoparietal. Bed requested for [facility] ER HOLD. Status is Inpatient Admission. Condition is Stable. Problem is new. Symptoms are unchanged. tl1 14:10 12:48 04/26/2020 04:01 Hospitalization Ordered by Alexis Murphy for Inpatient jd3 Admission. Preliminary diagnosis is Cerebral infarction - rigth frontoparietal. Bed requested for Telemetry/MedSurg (Inpatient). Status is Inpatient Admission. Condition is Stable. Problem is new. Symptoms are unchanged. dw
[2020-04-26] MEDS ORDERED: ASPIRIN 81 MG CHEWABLE TABLET ONE (04:25)
[2020-04-26] MEDS ORDERED: CLOPIDOGREL 75 MG TABLET ONE ×2 (04:25→10:07)
[2020-04-26] MEDS ORDERED: ACETAMINOPHEN 500 MG TAB PO PRN (04:52)
[2020-04-26] MEDS ORDERED: ZOLPIDEM TARTRATE 5 MG TABLET PO PRN (04:52)
[2020-04-26] MEDS ORDERED: ALBUTEROL 2.5 MG/3 ML NEB SOL NEB PRN (04:52)
[2020-04-26] MEDS ORDERED: ONDANSETRON 4 MG/2 ML VIAL IV PRN (04:52)
--- NOTE | 2020-04-26 04:55 | P.HP ---
Certification for Inpatient Patient admitted to: Inpatient With expected LOS: >2 Midnights Patient will require the following post-hospital care: None Practitioner: I am a practitioner with admitting privileges, knowledge of patient current condition, hospital course, and medical plan of care. Services: Services provided to patient in accordance with Admission requirements found in Title 42 Section 412.3 of the Code of Federal Regulations <Deshawn Gomes - Last Filed: 04/26/20 04:47> Patient History Date of Service: 04/26/20 Primary [facility] Provider: [facility] Reason for admission: Acute CVA History of Present Illness: This is a 59 y/o F with history of hyperlipidemia and hypertension currently off her medicines, that presented to ED after having what started as numbness to left lower extremity that then progressed to weakness of the entire left leg. Patient stated that symptoms started at approximately 1300 hours yesterday. Patient was worked up in the ED for stroke. Found to have NIH of two. CT head brain without contrast revealed acute/subacute ischemic cva present in the right frontal/temporal region consistent with symptoms of left sided weakness. Patient noted on labs to be cocaine positive as well which she admitted too. EKG without signs of atrial fib. CXR without acute findings. Rest of lab work without acute findings. Medicine consulted at that time for further evaluation and admission for acute CVA. Home medications list reviewed: Yes - Past Medical/Surgical History Diabetic: No - Social History Smoking Status: Heavy Tobacco smoker (>10 cigarettes/day) Counseled patient to stop smoking for: less than 10 minutes Smoking therapy provided: Yes Patient receptive to therapy: Yes Alcohol use: Yes CD- Drugs: Yes Caffeine use: Yes Place of Residence: Home <EliseoDeshawn - Last Filed: 04/26/20 04:47> Date of Service: 04/26/20 - Family History Father -: Heart disease, Hypertension Mother -: Hypertension, Cancer Notes: parkinsons. kidney cancer Brother -: Diabetes Notes: parkinsons <savita lujan - Last Filed: 04/26/20 16:02> Allergies Penicillins Allergy (Verified 04/26/20 04:56) Unknown Home Medications: Amlodipine [Norvasc*] 2.5 mg PO BID 04/26/20 Aspirin [Aspirin EC 81 MG] 162 mg PO DAILY #60 tablet. 04/26/20 Atorvastatin Calcium [Lipitor*] 40 mg PO BEDTIME #30 tab 04/26/20 Clopidogrel Bisulfate [Plavix*] 75 mg PO DAILY #30 tablet 04/26/20 Losartan Potassium [Cozaar*] 50 mg PO BID 04/26/20 Review of Systems General: Unremarkable Eyes: Unremarkable ENT: Unremarkable Respiratory: Unremarkable Cardiovascular: Unremarkable Gastrointestinal: Unremarkable Genitourinary: Unremarkable Musculoskeletal: Unremarkable Neurological: As per HPI Lymphatics: Unremarkable <Deshawn Gomes - Last Filed: 04/26/20 04:47> Physical Examination - Vital Signs Temperature: 98.5 F Blood Pressure: 147/84 Pulse: 89 Respirations: 16 Pulse Ox (%): 96 (Room Air ) - Physical Exam General: Alert, In no apparent distress, Oriented x3, Cooperative HEENT: PERRLA, Mucous membr. moist/pink, EOMI Neck: Supple, 2+ carotid pulse no bruit, JVD not distended, No Thyromegaly Respiratory: Clear to auscultation bilaterally, Normal air movement Cardiovascular: No edema, Normal pulses, Regular rate/rhythm, Normal S1 S2, No gallops, No rubs, No murmurs Capillary refill: <2 Seconds Gastrointestinal: Normal bowel sounds, Soft and benign, Non-distended, No ascites, No tenderness, No masses, No rebound, No guarding Musculoskeletal: No clubbing, No swelling, No contractures, No erythema, No tenderness, No warmth Integumentary: No rashes, No breakdown, No significant lesion, No tenderness/swelling, No erythema, No warmth, No cyanosis Neurological: Normal speech, Normal tone, Cranial nerves 3-12 intact, Normal affect, Other (NIH 2), Abnormal strength (4/5 to left leg ), Abnormal sensation (decreased sensation left leg) Lymphatics: No axilla or inguinal lymphadenopathy - Studies Laboratory Data (last 24 hrs) 04/26/20 03:15: PT 10.4, INR 0.91, APTT 32.8 04/26/20 03:15: WBC 6.50, Hgb 14.3, Hct 42.1, Plt Count 236 04/26/20 03:15: Sodium 144, Potassium 3.7, BUN 11, Creatinine 0.75, Glucose 112 H, Magnesium 2.5 H, Amylase 49, Lipase 199 <Deshawn Gomes - Last Filed: 04/26/20 04:47> - Studies Laboratory Data (last 24 hrs) 04/26/20 03:15: PT 10.4, INR 0.91, APTT 32.8 04/26/20 03:15: WBC 6.50, Hgb 14.3, Hct 42.1, Plt Count 236 04/26/20 03:15: Sodium 144, Potassium 3.7, BUN 11, Creatinine 0.75, Glucose 112 H, Magnesium 2.5 H, Amylase 49, Lipase 199 <savita lujan - Last Filed: 04/26/20 16:02> Assessment and Plan - Problems (Diagnosis) (1) Hypertension Current Visit: Yes Status: Chronic Plan: Patient with acute CVA. Patient to remain permissively hypertensive at this time. Will treat if BP goes over 200 systolic or 120 diastolic Qualifiers: Hypertension type: essential hypertension Qualified Code(s): I10 - Essential (primary) hypertension (2) Hyperlipidemia Current Visit: Yes Status: Chronic Plan: Will check lipid panel in the AM and start patient back on Atorvastatin as she said she did not do well on Rasuvostatin Qualifiers: Hyperlipidemia type: unspecified Qualified Code(s): E78.5 - Hyperlipidemia, unspecified (3) CVA (cerebral vascular accident) Current Visit: Yes Status: Acute Plan: Neruology consulted. Neuro checks and vs will be assessed multiple times throughout next couple of days. Patient started on folic acid, aspirin, plavix, and lipid therapy. ECHO, US carotid doppler, and MRI stroke of brain ordered to evaluate cause of CVA. Will continue to monitor patient closely. Patient due to being outside of time window did not receive and will not be a candidate for tPA Qualifiers: CVA mechanism: unspecified Qualified Code(s): I63.9 - Cerebral infarction, unspecified (4) Drug abuse Current Visit: Yes Status: Acute Plan: Counseled patient on drug abuse and needing to sustain from further use. Patient receptive (5) Encounter for smoking cessation counseling Current Visit: Yes Status: Acute Plan: Talked to patient about smoking. Patient wants to get off of cigarets and willing to try nicotine or chantix Discharge Plan: Home Plan to discharge in: 48 Hours - Advance Directives Does patient have a Living Will: No Does patient have a Durable POA for Healthcare: No - Code Status/Comfort Care Code Status Assessed: Yes Critical Care: Yes Time Spent Managing Pts Care (In Minutes): 80 <Deshawn Gomes - Last Filed: 04/26/20 04:47> Physician Review: Patient Assessed, Agree with Above Assessment and Plan Physician Review Additional Text: Acute CVA Cocaine abuse plan: Aspirin and Plavix Lipitor Check lipid profile MRI of the brain MRA of the head and neck Check echocardiogram and carotid Doppler. <savita lujan - Last Filed: 04/26/20 16:02>
[2020-04-26] MEDS: NA CHLORIDE 0.9% 1,000 ML IV SCH ×3 (05:00→21:05)
[2020-04-26] MEDS ORDERED: NA CHLORIDE 0.9% 1,000 ML ONE (07:07)
[2020-04-26] MEDS ORDERED: INFLUENZA VACCINE (for 3y+) 0.5 ML DOSE IMVAC ONE (08:00)
[2020-04-26] MEDS: ENOXAPARIN 40 MG/0.4 ML SQ SCH (09:00)
[2020-04-26] MEDS ORDERED: POTASSIUM CL SA 10 MEQ TAB PO ONE ×2 (09:00→10:07)
[2020-04-26] MEDS: ASPIRIN EC 81 MG TAB PO SCH (09:00)
[2020-04-26] MEDS: CLOPIDOGREL 75 MG TABLET PO SCH (09:00)
--- NOTE | 2020-04-26 09:08 | RAD REPORT ---
EXAM DESCRIPTION: - CP - 04/26/2020 7:59 am CLINICAL HISTORY: CVA Headache, drowsiness. COMPARISON: No comparisons TECHNIQUE: Real-time sonographic evaluation of both carotid systems was performed. Doppler interroga tion was performed with waveform tracing bilaterally. FINDINGS: Normal high resistance waveforms are noted in both external carotid arteries. The common c arotid arteries and internal carotid arteries show normal low resistance waveforms. Minimal hard plaque is seen involving the right carotid bulb. Moderate hard plaquing is seen involvin g the right carotid bulb with mosaic flow present. Velocity measurement at the level of the atheromat ous plaque is elevated to 173 cm/second. Based on NASCET criteria, stenosis estimated at 70% is prese nt. Antegrade flow seen in both vertebral arteries. IMPRESSION: Moderate hard plaque is seen involves the left carotid bulb. Moderate stenosis at the left carotid bulb is suspected estimated at 70% based on NASCET criteria. Th ere is turbulent flow through the level of the stenosis and mild elevation in peak systolic velocity.
[2020-04-26] MEDS ORDERED: ENOXAPARIN 40 MG/0.4 ML SQ ONE (09:48)
[2020-04-26] MEDS ORDERED: ASPIRIN EC 81 MG TAB PO ONE (10:07)
--- NOTE | 2020-04-26 11:53 | P.DS ---
Admission Date: 04/26/20 Discharge Date: 04/27/20 Primary [facility] Provider: [facility] Disposition: ROUTINE DISCHARGE Discharge Condition: FAIR Reason for Admission: Acute CVA Brief History of Present Illness: 59-year-old woman with a history of hypertension presented to the emergency department with a complaint of numbness in the left lower extremity which progressed to left lower extremity weakness. CT head done in the emergency department demonstrated acute/subacute CVA in the right frontotemporal region of the cortex. Her toxicology screen was also positive for cocaine. Patient was admitted for further management of acute CVA. Hospital Course: Patient admitted to the medical floor and started on aspirin and Plavix. Calcium Doppler done showed had flat in the left carotid bulb with estimated 70% stenosis. CTA head and neck done showed diffuse atherosclerotic disease in the intra cranial vessels and also and carotid arteries. It did not show the 70% stenosis in the left carotid bulb suggested by the carotid duplex. MRI of the brain obtained showed acute to subacute nonhemorrhagic 4-5 cm infarct in the left frontal lobe. No cardiac arrhythmia noted. Patient's symptoms resolved during hospitalization. Had no trouble with swallowing after she was evaluated by speech therapy. She also ambulated without assistance during physical therapy. Patient's symptoms have resolved. She is advised to quit using cocaine. Patient informed the stroke may have been caused by cocaine use. She stated she has decided to stay away from cocaine from now. She is discharged with aspirin and Plavix and Lipitor. Vital Signs/Physical Exam: Temp Pulse Resp BP Pulse Ox 98.5 F 88 16 133/67 97 04/26/20 05:03 04/26/20 08:52 04/26/20 08:52 04/26/20 08:52 04/26/20 08:52 General: Alert, In no apparent distress, Oriented x3 HEENT: Mucous membr. moist/pink Neck: Supple, 2+ carotid pulse no bruit, JVD not distended Respiratory: Clear to auscultation bilaterally Cardiovascular: No edema, Regular rate/rhythm, Normal S1 S2 Gastrointestinal: Soft and benign, Non-distended Musculoskeletal: No swelling, No tenderness Integumentary: No rashes, No erythema Neurological: Normal speech, Normal strength at 5/5 x4 extr, Cranial nerves 3-12 intact Laboratory Data at Discharge: WBC 6.50 K/uL (4.3-10.9) 04/26/20 03:15 Hgb 14.3 g/dL (12.0-15.0) 04/26/20 03:15 Hct 42.1 % (36.0-45.0) 04/26/20 03:15 Plt Count 236 K/uL (152-406) 04/26/20 03:15 PT 10.4 SECONDS (9.5-12.5) 04/26/20 03:15 INR 0.91 04/26/20 03:15 APTT 32.8 SECONDS (24.3-36.9) 04/26/20 03:15 Sodium 144 mmol/L (136-145) 04/26/20 03:15 Potassium 3.7 mmol/L (3.5-5.1) 04/26/20 03:15 BUN 11 mg/dL (7-18) 04/26/20 03:15 Creatinine 0.75 mg/dL (0.55-1.3) 04/26/20 03:15 Glucose 112 mg/dL (74-106) H 04/26/20 03:15 Magnesium 2.5 mg/dL (1.8-2.4) H 04/26/20 03:15 Troponin I < 0.02 ng/mL (0.0-0.045) 04/26/20 11:27 Amylase 49 U/L (25-115) 04/26/20 03:15 Lipase 199 U/L (73-393) 04/26/20 03:15 Home Medications: Amlodipine [Norvasc*] 2.5 mg PO BID 04/26/20 Aspirin [Aspirin EC 81 MG] 162 mg PO DAILY #60 tablet. 04/26/20 Atorvastatin Calcium [Lipitor*] 40 mg PO BEDTIME #30 tab 04/26/20 Clopidogrel Bisulfate [Plavix*] 75 mg PO DAILY #30 tablet 04/26/20 Losartan Potassium [Cozaar*] 50 mg PO BID 04/26/20 New Medications: Aspirin [Aspirin EC 81 MG] 162 mg PO DAILY #60 tablet. Atorvastatin Calcium [Lipitor*] 40 mg PO BEDTIME #30 tab Clopidogrel Bisulfate [Plavix*] 75 mg PO DAILY #30 tablet Followup: Unknown,U [Primary Care Provider] - Walter Delong MD [ASSOCIATE-ACTIVE - CAN ADMIT] - (within 1 month.) Time spent managing pt's care (in minutes): 40
--- NOTE | 2020-04-26 13:43 | RAD REPORT ---
EXAM DESCRIPTION: CT HEAD WITHOUT IV CONTRAST CLINICAL HISTORY: Left leg weakness TECHNIQUE: Contiguous axial CT images obtained through the brain without IV contrast. Coronal and sa gittal reformatted images were provided. This exam was performed according to our departmental dose-optimization program, which includes autom ated exposure control, adjustment of the mA and/or kV according to patient size and/or use of iterati ve reconstruction technique. COMPARISON: 12/10/2019 FINDINGS: Brain: There is mild cerebral atrophy. Bilateral periventricular and subcortical white mat ter low-attenuation most compatible with chronic microvascular angiopathy without significant interva l change. New area of low attenuation with loss of jimenez-white matter differentiation in the right fro ntoparietal region. No hemorrhage. Ventricles: No ventriculomegaly or midline shift. Extra-axial spaces: No extra-axial collection or hemorrhage. Paranasal sinuses and mastoid air cells: Well-aerated Vessels: There is atherosclerotic disease of the internal carotid arteries bilaterally. Bones: Unremarkable Soft tissues: Unremarkable IMPRESSION: 1. Findings suggestive of right frontoparietal acute to subacute infarct. 2. No acute hemorrhage. 3. Other findings as above. THIS REPORT CONTAINS FINDINGS THAT MAY BE CRITICAL TO PATIENT CARE: The findings were verbally discus sed via telephone conference with Dr. Art on 04/26/2020 3:17 AM [employer]. The results were acknowledged and understood. Electronically signed by: Shelly Simeon MD 04/26/2020 3:18 AM [employer] Due to temporary technical issues with the PACS/Fluency reporting system, reports are being signed by the in house radiologists without review as a courtesy to insure prompt reporting. The interpreting radiologist is fully responsible for the content of the report.
--- NOTE | 2020-04-26 16:07 | P.PN ---
Date of Service: 04/26/20 Patient seen and examined. She has no neurologic symptoms. She denies any weakness. On examination, no focal neurologic deficits. Plan: Awaiting MRI of the brain, MRA of the head and neck. Echocardiogram completed, result is pending. Left carotid Doppler demonstrate moderate stenosis estimated to be 70%. Patient will need referral to vascular surgeon as an outpatient. Continue aspirin and Plavix. Check lipid profile.
[2020-04-26] MEDS ORDERED: LORazepam 2 MG/ML VIAL IV ONE (19:00)
[2020-04-26] MEDS ORDERED: ATORVASTATIN 20 MG TAB PO SCH (21:00)
--- NOTE | 2020-04-26 21:22 | RAD REPORT ---
EXAM DESCRIPTION: MRI - Brain W/Wo Cont - 04/26/2020 8:01 pm CLINICAL HISTORY: WEAKNESS COMPARISON: Head Brain Wo Cont dated 04/26/2020; MRA Neck W/Wo Cont dated 04/26/2020 TECHNIQUE: Sagittal and axial T1-weighted images were obtained. Axial PD/heavily T2-weighted and T2- FLAIR images were obtained along with axial DWI/ADC mapping sequences. Coronal heavily T2 weighted s equence obtained. Axial and coronal post-contrast T1-weighted images were also obtained. A 19 ml Mul tihance contrast following utilized. FINDINGS: No intracranial hemorrhage is identified. There is a 4-5 centimeter area of abnormal diffu alphonso signal in the right frontal lobe. This is primarily in the medial frontal lobe in the anterior c erebral artery distribution. No other areas of acute to subacute infarction seen. There is correspond ing diminished signal on ADC mapping. First no mass effect, edema or shift of midline structures. Pat ient has prominent for age chronic ischemic change throughout the cerebral white matter. Ventricles a re normal. Ferrell matter- white matter junction is preserved. Signal voids are seen as a normal finding in the major intracranial vessels. Patchy enhancement is seen in the area of infarction. Otherwise, no abnormal brain parenchymal or dur al enhancement seen. Mastoid air cells and paranasal sinuses are clear. IMPRESSION: Acute to subacute nonhemorrhagic infarction involving a 4-5 centimeter area of the anter ior right frontal lobe in the right middle cerebral artery distribution. No midline shift or significant mass effect. Patient has advanced for age chronic ischemic change in the cerebral white matter.
--- NOTE | 2020-04-26 21:24 | RAD REPORT ---
EXAM DESCRIPTION: MRI - MRA Head Wo Cont - 04/26/2020 8:01 pm CLINICAL HISTORY: CVA, left leg weakness COMPARISON: CT head same date, MRI brain same date TECHNIQUE: Axial and coronal 3D [id number] image acquisition was performed. 3D rotational images were generated with source and reconstruction images reviewed. Horizontal and vertical axis rotation al views generated using MIP protocol. FINDINGS: Exam has significant motion degradation limitations. Distal vertebral arteries and basilar artery show no significant findings. There is slight narrowing of the supraclinoid portion of each i nternal carotid artery. There is significant signal loss throughout the anterior, middle and posterior cerebral artery distri butions. Some of this is due to the extent of motion ; however, significant flow restricting atherosc lerotic disease is evident. No specific named branch occlusion can be confirmed for the right frontal lobe CVA. No aneurysm or vascular malformation. IMPRESSION: Advanced for age intracranial atherosclerotic change involving the anterior, middle and posterior cerebral artery distributions. No aneurysm or vascular malformation. No specific named branch occlusion for the right frontal lobe C VA. Distal internal carotid arteries and the basilar artery do not show significant disease.
--- NOTE | 2020-04-26 21:26 | RAD REPORT ---
EXAM DESCRIPTION: MRI - MRA Neck W/Wo Cont - 04/26/2020 8:01 pm CLINICAL HISTORY: Right frontal lobe CVA, headache, weakness, leg left weakness COMPARISON: CT head same date, MRI brain same date, CTA neck same date TECHNIQUE: MR angiography of the cervical vasculature performed. Coronal imaging plane acquisition u tilized. A 19 MultiHance contrast volume was utilized. Coronal reformatted images were generated and reviewed. Vertical axis 3D rotational projections obtained using maximum intensity projection protoco l. FINDINGS: Exam has substantial motion degradation limitation. Great vessel and vertebral artery orig ins cannot be accurately assessed. No significant common carotid or internal carotid artery disease i dentifiable. No significant vertebral artery abnormality identifiable. IMPRESSION: MRA neck imaging does not show significant disease or acute finding. Exam suffers from significant motion degradation limitations.
--- NOTE | 2020-04-26 21:27 | RAD REPORT ---
EXAM DESCRIPTION: CT - Neck Angio - 04/26/2020 5:23 pm CLINICAL HISTORY: Acute CVA TECHNIQUE: During dynamic enhancement using nonionic IV contrast, axial 2 mm thick images of the nec k were obtained. Sagittal and axial reconstruction images were generated using MIP technique and revi ewed. All CT scans are performed using dose optimization technique as appropriate and may include automated exposure control or mA/KV adjustment according to patient size. COMPARISON: CT head same date FINDINGS: No aneurysm or vascular malformation identified. No carotid or vertebral dissection. No aortic arch or great vessel origin abnormality seen. Vertebral artery origins unremarkable as well . No stenosis, vasculitis or other significant right-sided carotid artery finding. Atherosclerotic ch anges and wall thickening are present at the left carotid bulb causing approximately 25% stenosis. No focal abnormality of either vertebral artery. Basilar artery is normal. IMPRESSION: Left carotid bulb atherosclerotic changes causing approximately 25% stenosis. Remainder of the examination without significant or suspicious finding.
--- NOTE | 2020-04-26 21:31 | RAD REPORT ---
EXAM DESCRIPTION: CT - Head angio - 04/26/2020 5:23 pm CLINICAL HISTORY: Acute CVA TECHNIQUE: During dynamic enhancement using nonionic IV contrast, axial 1 millimeter thick images of the head were obtained. Sagittal and axial reconstruction images were generated using MIP technique and reviewed. All CT scans are performed using dose optimization technique as appropriate and may include automated exposure control or mA/KV adjustment according to patient size. COMPARISON: CT head same date FINDINGS: No aneurysm or vascular malformation identified. Major venous sinuses are patent. No vasculitis or named branch occlusion identifiable. The anterior, middle and posterior cerebral art juli branches do not show with same extent of disease seen on the MRA study. The MR imaging had motion degradation limitations which probably exaggerated the severity of disease. Cavernous carotid calcif ications are present without significant luminal narrowing. IMPRESSION: Calcifications in the cavernous portions of each internal carotid artery present withou t significant luminal narrowing. Significant atherosclerotic change, vasculitis or named branch occlusion not identified in the anteri or, middle and posterior cerebral artery circulations. MRA imaging showed much more pronounced disease than suggested by this study. The MRA examination lik eliecer exaggerates severity of disease due to motion.
[2020-04-27 04:13] LABS: Absolute Lymphocytes (CBC) 2.3 K/uL (0.7-4.9); Basophils % 0.7 % (0-1.3); Hematocrit 36.1 % (36.0-45.0); Lymphocytes % 39.7 % (15.3-44.8); MPV 8.7 fL (7.6-11.3); RBC Red Blood Cell Count 3.67 M/uL (3.86-4.86)
[2020-04-27 04:26] LABS: Magnesium 2.3 mg/dL (1.8-2.4); Phosphorus 3.7 mg/dL (2.5-4.9); Potassium 4.1 mmol/L (3.5-5.1)
[2020-04-27 07:51] VITALS: BMI 57.9
--- NOTE | 2020-04-27 08:52 | ECHO ---
HEIGHT: 5 ft 8 in WEIGHT: 381 lb 0 oz DATE OF STUDY: 04/26/[address]: Deshawn Gomes 2-DIMENSIONAL: YES M.MODE: YES DOPPLER: YES COLOR FLOW: YES TDS: YES PORTABLE: DEFINITY: BUBBLE STUDY: DIAGNOSIS: STROKE CARDIAC HISTORY: CATHERIZATION: SURGERY: PROSTHETIC VALVE: PACEMAKER: MEASUREMENTS (cm) DIASTOLIC (NORMALS) SYSTOLIC (NORMALS) IVSd 1.0 (0.6-1.2) LA Diam 3.9 (1.9-4.0) LVEF 60% LVIDd 2.9 (3.5-5.7) LVIDs 2.0 (2.0-3.5) %FS 31% LVPWd 1.0 (0.6-1.2) Ao Diam 2.7 (2.0-3.7) 2 DIMENSIONAL ASSESSMENT: RIGHT ATRIUM: NORMAL LEFT ATRIUM: NORMAL RIGHT VENTRICLE: NORMAL LEFT VENTRICLE: NORMAL TRICUSPID VALVE: NORMAL MITRAL VALVE: NORMAL PULMONIC VALVE: NORMAL AORTIC VALVE: NORMAL PERICARDIAL EFFUSION: NONE AORTIC ROOT: NORMAL LEFT VENTRICULAR WALL MOTION: NORMAL DOPPLER/COLOR FLOW: NORMAL COMMENTS: NORMAL LEFT VENTRICULAR EJECTION FRACTION 55-60%. NORMAL WALL MOTION. TECHNOLOGIST: EDUARDO ABDALLA
[2020-04-27] MEDS: CLOPIDOGREL 75 MG TABLET PO SCH (09:03)
[2020-04-27] MEDS: ASPIRIN EC 81 MG TAB PO SCH (09:04)
[2020-04-27] MEDS: ENOXAPARIN 40 MG/0.4 ML SQ SCH (09:04)
[2020-04-27] MEDS: NA CHLORIDE 0.9% 1,000 ML IV SCH (09:04)
[2020-04-27 09:20] VITALS: O2SAT 95
[2020-04-27 12:48] VITALS: BP 142/75; TEMP 98.5
--- NOTE | 2020-04-27 18:31 | CON ---
Reason For Consultation: Consultation called because of stroke. History Of Present Illness: Ms. Villalba is a 59-year-old right-handed patient with history o f hypertension, dyslipidemia, and tachycardia along with at least a 25+ year history of cocaine abuse , comes into [facility] with weakness of the left lower extremity that began around 13 hours before she came to the hospital. She noticed the left-sided weakness, but did not seek medical atte ntion. She tried to "sleep it off," but then got up and was stumbling, could not bear weight because of the weakness on the left arm along with the left leg was also becoming weak. She eventually came to [facility] on the next day around 2:32 in the morning. Her head CT scan done at 2:47 reyes ggested a right frontoparietal acute to subacute infarct. Brain MRI done around 8 p.m. on the id show an acute to subacute infarct of 4-5 cm in the anterior right frontal lobe and right middle ce rebral artery distribution that was also advanced for age, chronic ischemic change in the cerebral wh ite matter. The patient noted that since coming to the hospital and receiving aspirin and Plavix stan ng with the folic acid and permissive hypertension, there are deficits that have improved tremendousl y and largely resolved except for mild lower extremity weakness. Past Medical History: As indicated. Social History: Heavy tobacco use, actually around a pack and half of cigarettes daily for more than 30 years. She was told of the importance of stopping smoking and taking cocaine, which she really a dmits to. She does use alcohol as well as caffeinated beverages. Allergies: PENICILLIN. Family History: Hypertension in mother and cancer along with Parkinson's, kidney disease. Father wi th heart disease and hypertension. Brother with diabetes and Parkinson's. Medications: At home, amlodipine 2.5 mg twice daily, aspirin 162 mg daily, Lipitor 40 mg at bedtime, Plavix 75 mg daily, losartan 50 mg twice daily. Review of Systems: Aside from mentioned, she denies any recent fevers, chills, nausea, vomiting, myalgias, arthralgias, headache, weight change, psychiatric issues, gastrointestinal, or genitourinary issues. Physical Examination: Vital Signs: Blood pressure 142/75, pulse 73, respiratory rate 16, temperature 98.5, oxygen saturati on 95%. Weight is 140 pounds. General: Ms. Villalba is resting in bed. HEENT: She is normocephalic, atraumatic. Sclerae anicteric. Oropharynx is pink and moist. Neck: Supple. Chest: Clear. Heart: Regular. Extremities: No edema, cyanosis, or clubbing. Neurological: She is alert and oriented to situation, place, and person. She has no focal cranial n erve deficits. On motor examination in the upper extremities, very subtle weakness noted in the left upper compared to the right upper extremity, around 4/5 compared to 5/5; left lower extremity 4/5 co mpared to the right 5/5. Reflexes are symmetric in the upper and lower extremities. Coordination, s light dysmetria noted in the left upper and lower extremities. Gait, some tendency to drift to the l eft side, but she is able to ambulate steadily. Laboratory Studies: Complete blood count with differential essentially unremarkable. Basic metaboli c panel remarkable for slightly elevated chloride, glucose of 96, calcium 8.3, hemoglobin A1c is 5.7, triglycerides 184, total cholesterol 290, LDL cholesterol 133, HDL cholesterol 49. Urinalysis is ne gative. Toxicology positive for cocaine. COVID-19 test is negative. Assessment: Ms. Villalba is a 59-year-old patient with right frontal stroke in the setting of cocaine u se, hypertension, dyslipidemia, heavy cigarette smoking, and alcohol use. She does have some residua l left-sided lower more than upper extremity weakness, incoordination, but her speech is normal and c ranial nerves are normal. Plan: 1.She may benefit from outpatient physical and occupational therapy to improve her gait, coordinatio n, strength, and use of the left lower extremity. 2.She should stop using cocaine and smoking cigarettes. She was strongly advised to do that. 3.Be compliant with medication for dyslipidemia and for blood pressure management. 4.She may be discharged to outpatient physical therapy. 5.Follow up with Dr. Delong in clinic 1 month later. ELIZABETH/KYLIE Voice ID: [id number] Report ID: [id number]
--- NOTE | 2020-04-29 08:01 | EKG ---
Test Date: 2020-04-26 Test Time: 05:34:19 Conversion Developer: HERMAN MEASUREMENT RESULTS: Intervals: Rate: 74 WV: 152 QRSD: 78 QT: 400 QTc: 444 [place]: P: 57 WV: 152 QRS: 47 T: 65 INTERPRETIVE STATEMENTS: Normal sinus rhythm Normal ECG Compared to ECG 12/10/2019 18:00:20 No significant changes Electronically Signed On 04-29-20 07:54:15 [employer]HOUSE [employer] by Kenneth Green
== END 2020-04-27 15:19 | disposition home or self-care (01) | DRG 917 ==
LOC: ER 01:26 → ERHOLD 04:38 → 2ND 13:48
PROVIDERS: ADMIT Internal Medicine; ATTEND Internal Medicine
DX: T40.5X1A Poisoning by cocaine, accidental (unintentional), initial encounter (principal); I63.9 Cerebral infarction, unspecified; G81.94 Hemiplegia, unspecified affecting left nondominant side; I10 Essential (primary) hypertension; F17.210 Nicotine dependence, cigarettes, uncomplicated; F19.10 Other psychoactive substance abuse, uncomplicated; E78.5 Hyperlipidemia, unspecified; R29.702 NIHSS score 2; Z88.0 Allergy status to penicillin; Z79.899 Other long term (current) drug therapy; Z98.51 Tubal ligation status; Z79.02 Long term (current) use of antithrombotics/antiplatelets; Z71.6 Tobacco abuse counseling; Z20.822 Contact with and (suspected) exposure to COVID-19
CPT/HCPCS: 36415; 70450; 70496; 70498; 70544; 70549; 70553; 80048; 80061; 80307; 81003; 82150; 82553; 83036; 83690; 83735; 84100; 84436; 84443; 84484; 85025; 85610; 85730; 92610; 93005; 93306; 93880; 94760; 97161; 99285; A9577; J1650; J7030; Q9967; U0003

== ENCOUNTER 2020-05-14 20:18 | Inpatient (IN) | payer SELFPAY ==
[2020-05-14] MEDS ORDERED: NA CHLORIDE 0.9% 1,000 ML ONE (21:45)
[2020-05-14 21:58] LABS: Barbiturates NEGATIVE (NEGATIVE); Benzodiazepines NEGATIVE (NEGATIVE); Cocaine NEGATIVE (NEGATIVE); METHAMPHETAM NEGATIVE (NEGATIVE); Methadone NEGATIVE (NEGATIVE); Opiates NEGATIVE (NEGATIVE); Phencyclidine NEGATIVE (NEGATIVE); THC Cannibis NEGATIVE (NEGATIVE)
[2020-05-14 22:01] LABS: Absolute Lymphocytes (CBC) 2.3 K/uL (0.7-4.9); Basophils % 0.7 % (0-1.3); Hematocrit 41.9 % (36.0-45.0); Lymphocytes % 28.6 % (15.3-44.8); MPV 8.8 fL (7.6-11.3); RBC Red Blood Cell Count 4.34 M/uL (3.86-4.86)
[2020-05-14 22:03] LABS: Protime INR 0.97
[2020-05-14 22:15] LABS: ALT/SGPT 42 U/L (12-78); AST/SGOT 16 U/L (15-37); Albumin 4.2 g/dL (3.4-5.0); Alkaline Phosphatase 98 U/L (45-117); BUN Blood Urea Nitrogen 15 mg/dL (7-18); Bicarbonate 26 mmol/L (21-32); Bilirubin Direct < 0.1 mg/dL (0-0.2); Bilirubin Total 0.3 mg/dL (0.2-1.0); Glucose Level 195 mg/dL (74-106); Magnesium 2.2 mg/dL (1.8-2.4); NT PRO-BNP 21 pg/mL (<125); Potassium 3.5 mmol/L (3.5-5.1); Protein, Total 7.8 g/dL (6.4-8.2); Sodium Level 140 mmol/L (136-145); Troponin (Emerg Dept Use Only) < 0.02 ng/mL (0.0-0.045)
--- NOTE | 2020-05-14 22:24 | ER ---
Nurse's Notes [facility] Name: Natacha Villalba Age: 59 yrs Sex: Female : 1960 Arrival Date: 05/14/2020 Time: 20:26 Bed 16 Private MD: Diagnosis: Transient cerebral ischemic attack, unspecified-LEFT ARM AND LEG, NUMBNESS;Tobacco abuse counseling;Tobacco use Presentation: 05/14 20:26 Chief complaint: Patient states: Had a stroke on the 26 of April, discharged from [facility] the hospital on the . Yesterday late morning, L leg feels numb, weird and heavy is worse today. Headache for several days. Coronavirus screen: Client denies travel out of the [place] in the last 14 days. headache, Client presents with at least one sign or symptom that may indicate coronavirus-19. Standard/surgical mask placed on the client. Provider contacted for isolation considerations. Ebola Screen: Patient negative for fever greater than or equal to 101.5 degrees Fahrenheit, and additional compatible Ebola Virus Disease symptoms Patient denies exposure to infectious person. Patient denies travel to an Ebola-affected area in the 21 days before illness onset. No symptoms or risks identified at this time. Initial Sepsis Screen: Does the patient meet any 2 criteria? No. Patient's initial sepsis screen is negative. Does the patient have a suspected source of infection? No. Patient's initial sepsis screen is negative. Risk Assessment: Do you want to hurt yourself or someone else? Patient reports no desire to harm self or others. Onset of symptoms was May 13, 2020. 20:26 Method Of Arrival: Ambulatory ca1 20:26 Acuity: UGO 3 ca1 Historical: - Allergies: 20:29 PENICILLINS; ca1 - Home Meds: 20:29 amlodipine 2.5 mg tab 2 tabs once daily [Active]; losartan 50 mg Oral tab 1 tab 2 times ca1 per day [Active]; Plavix 75 mg Oral tab 1 tab once daily [Active]; atorvastatin oral oral [Active]; - PMHx: 20:29 High Cholesterol; Hypertension; Tachycardia; ca1 - Immunization history:: Flu vaccine is not up to date. - Social history:: Smoking status: Patient reports the use of cigarette tobacco products, smokes one-half pack cigarettes per day. Screenin:38 Abuse screen: Denies threats or abuse. Nutritional screening: No deficits noted. em Tuberculosis screening: No symptoms or risk factors identified. Fall Risk None identified. Assessment: 21:00 General: Appears in no apparent distress. comfortable, Behavior is calm, cooperative, em appropriate for age. Pain: Complains of pain in forehead. Neuro: Level of Consciousness is awake, alert, obeys commands, Oriented to person, place, time, situation, Reports headache numbness in left arm and left leg. Cardiovascular: Capillary refill < 3 seconds Patient's skin is warm and dry. Respiratory: Airway is patent Respiratory effort is even, unlabored, Respiratory pattern is regular, symmetrical. GI: Abdomen is flat, Patient currently denies nausea, vomiting. Derm: Skin is intact, is healthy with good turgor, Skin is pink, warm \T\ dry. Musculoskeletal: Capillary refill < 3 seconds, Range of motion: intact in all extremities. 22:39 Reassessment: Patient appears in no apparent distress at this time. Patient and/or em family updated on plan of care and expected duration. Pain level reassessed. Patient is alert, oriented x 3, equal unlabored respirations, skin warm/dry/pink. Vital Signs: 20:26 BP 160 / 92; Pulse 110; Resp 18 S; Temp 97.3(TE); Pulse Ox 98% on R/A; Weight 62.14 kg ca1 (R); Height 5 ft. 3 in. (160.02 cm) (R); Pain 0/10; 22:00 BP 149 / 76; Pulse 104; Resp 18; Pulse Ox 97% on R/A; em 20:26 Body Mass Index 24.27 (62.14 kg, 160.02 cm) ca1 Jose Luis Coma Score: 21:15 Eye Response: spontaneous(4). Verbal Response: oriented(5). Motor Response: obeys [facility] commands(6). Total: 15. NIH Stroke Scale Scores: 21:14 NIHSS Score: 0 komal 22:43 NIHSS Score: 2 em ED Course: 20:26 Patient arrived in ED. ca1 20:28 Triage completed. ca1 20:29 Arm band placed on right wrist. ca1 20:38 Deshawn Cooper RN is Primary Nurse. em 20:52 Vivek Graves MD is Attending Physician. komal 21:25 Initial lab(s) drawn, by me, sent to lab. Inserted saline lock: 20 gauge in right em forearm, using aseptic technique. Blood collected. 22:19 Alexis Murphy is Hospitalizing Provider. komal 22:24 Dany Han DO is Hospitalizing Provider. komal 23:47 XRAY Chest (1 view) In Process Unspecified. EDMS 23:47 CT Head Brain wo Cont In Process Unspecified. EDMS 03 00:15 No provider procedures requiring assistance completed. Patient admitted, IV remains in em place. Administered Medications: 05/14 21:38 Drug: NS 0.9% 1000 ml Route: IV; Rate: 1 bolus; Site: left forearm; em 05/15 00:22 Follow up: IV Status: Completed infusion; IV Intake: 1000ml em 05/14 21:38 Drug: foLIC Acid 1 mg Route: IVPB; Site: right forearm; em 23:13 Follow up: Response: No adverse reaction; IV Status: Completed infusion em 22:16 Drug: Aspirin 81 mg Route: PO; em 23:13 Follow up: Response: No adverse reaction em 22:55 Drug: Atorvastatin 40 mg Route: PO; em 23:13 Follow up: Response: No adverse reaction em Intake: 05/15 00:22 IV: 1000ml; Total: 1000ml. em Outcome: 05/14 22:24 Decision to Hospitalize by Provider. [facility] 05/15 00:20 Admitted to Med/surg accompanied by tech, via wheelchair, room 230, Report called to norma Contreras RN Condition: stable Instructed on the need for admit, Demonstrated understanding of instructions. 00:33 Patient left the ED. rr5 NIH Stroke Scale - NIH Stroke Score Date: 05/14/2020 Time: 21:14 Total Score = 0 1a. Level of Consciousness (LOC) - 0(Alert) 1b. Level of Consciousness (LOC) (Year \T\ Age) - 0(Both) 1c. LOC Commands (Open \T\ Closes Eyes/Stock Taker) - 0(Both) 2. Best Gaze (Lateral Gaze Paresis) - 0(Normal) 3. Visual Field Loss - 0(No visual loss) 4. Facial Palsy - 0(Normal) 5a. Left Arm: Motor (10-second hold) - 0(No drift) 5b. Right Arm: Motor (10-second hold) - 0(No drift) 6a. Left Leg: Motor (5-second hold - always test supine) - 0(No drift) 6b. Right Leg: Motor (5-second hold - always test supine) - 0(No drift) 7. Limb Ataxia (finger/nose \T\ heel/benton - test with eyes open) - 0(Absent) 8. Sensory Loss (pinprick arms/legs/face) - 0(Normal) 9. Best Language: Aphasia (description/naming/reading) - 0(No aphasia) 10. Dysarthria (speech clarity - read or repeat words) - 0(Normal) 11. Extinction and Inattention (visual/tactile/auditory/spatial/personal) - 0(No abnormality) Initials: komal NIH Stroke Scale - NIH Stroke Score Date: 05/14/2020 Time: 22:43 Total Score = 2 1a. Level of Consciousness (LOC) - 0(Alert) 1b. Level of Consciousness (LOC) (Year \T\ Age) - 0(Both) 1c. LOC Commands (Open \T\ Closes Eyes/Stock Taker) - 0(Both) 2. Best Gaze (Lateral Gaze Paresis) - 0(Normal) 3. Visual Field Loss - 0(No visual loss) 4. Facial Palsy - 0(Normal) 5a. Left Arm: Motor (10-second hold) - 0(No drift) 5b. Right Arm: Motor (10-second hold) - 0(No drift) 6a. Left Leg: Motor (5-second hold - always test supine) - 1(Drift) 6b. Right Leg: Motor (5-second hold - always test supine) - 0(No drift) 7. Limb Ataxia (finger/nose \T\ heel/benton - test with eyes open) - 0(Absent) 8. Sensory Loss (pinprick arms/legs/face) - 1(Mild to moderate loss) 9. Best Language: Aphasia (description/naming/reading) - 0(No aphasia) 10. Dysarthria (speech clarity - read or repeat words) - 0(Normal) 11. Extinction and Inattention (visual/tactile/auditory/spatial/personal) - 0(No abnormality) Initials: em Signatures: Dispatcher [employer] Vivek Woodward MD MD cha Munoz, Edgar, RN RN em Mode Stanley RN RN rr5 Marisol Calle RN RN ca1
--- NOTE | 2020-05-14 22:24 | EDPHYS ---
Physician Documentation [facility] Name: Natacha Villalba Age: 59 yrs Sex: Female : 1960 Arrival Date: 05/14/2020 Time: 20:26 Bed 16 Private MD: ED Physician Vivek Graves HPI: 05/14 21:13 This 59 yrs old Female presents to ER via Ambulatory with complaints of komal Headache, Numbness. 21:13 The patient complains of pain to the forehead. komal Historical: - Allergies: 20:29 PENICILLINS; ca1 - Home Meds: 20:29 amlodipine 2.5 mg tab 2 tabs once daily [Active]; losartan 50 mg Oral tab 1 tab 2 times ca1 per day [Active]; Plavix 75 mg Oral tab 1 tab once daily [Active]; atorvastatin oral oral [Active]; - PMHx: 20:29 High Cholesterol; Hypertension; Tachycardia; ca1 - Immunization history:: Flu vaccine is not up to date. - Social history:: Smoking status: Patient reports the use of cigarette tobacco products, smokes one-half pack cigarettes per day. ROS: 21:14 Constitutional: Negative for fever, chills, and weight loss, Eyes: Negative for injury, komal pain, redness, and discharge, ENT: Negative for injury, pain, and discharge, Neck: Negative for injury, pain, and swelling, Cardiovascular: Negative for chest pain, palpitations, and edema, Respiratory: Negative for shortness of breath, cough, wheezing, and pleuritic chest pain, Abdomen/GI: Negative for abdominal pain, nausea, vomiting, diarrhea, and constipation, Back: Negative for injury and pain, : Negative for injury, bleeding, discharge, and swelling, Skin: Negative for injury, rash, and discoloration, Psych: Negative for depression, anxiety, suicide ideation, homicidal ideation, and hallucinations, Allergy/Immunology: Negative for hives, rash, and allergies, Endocrine: Negative for neck swelling, polydipsia, polyuria, polyphagia, and marked weight changes. 21:14 MS/extremity: Positive for paresthesias, of the left arm and left leg. Exam: 21:14 Constitutional: This is a well developed, well nourished patient who is awake, alert, komal and in no acute distress. Head/Face: Normocephalic, atraumatic. Eyes: Pupils equal round and reactive to light, extra-ocular motions intact. Lids and lashes normal. Conjunctiva and sclera are non-icteric and not injected. Cornea within normal limits. Periorbital areas with no swelling, redness, or edema. ENT: Nares patent. No nasal discharge, no septal abnormalities noted. Tympanic membranes are normal and external auditory canals are clear. Oropharynx with no redness, swelling, or masses, exudates, or evidence of obstruction, uvula midline. Mucous membranes moist. Neck: Trachea midline, no thyromegaly or masses palpated, and no cervical lymphadenopathy. Supple, full range of motion without nuchal rigidity, or vertebral point tenderness. No Meningismus. Chest/axilla: Normal chest wall appearance and motion. Nontender with no deformity. No lesions are appreciated. Cardiovascular: Regular rate and rhythm with a normal S1 and S2. No gallops, murmurs, or rubs. Normal PMI, no JVD. No pulse deficits. Respiratory: Lungs have equal breath sounds bilaterally, clear to auscultation and percussion. No rales, rhonchi or wheezes noted. No increased work of breathing, no retractions or nasal flaring. Abdomen/GI: Soft, non-tender, with normal bowel sounds. No distension or tympany. No guarding or rebound. No evidence of tenderness throughout. Back: No spinal tenderness. No costovertebral tenderness. Full range of motion. Female : Normal external genitalia. Skin: Warm, dry with normal turgor. Normal color with no rashes, no lesions, and no evidence of cellulitis. MS/ Extremity: Pulses equal, no cyanosis. Neurovascular intact. Full, normal range of motion. Neuro: Awake and alert, GCS 15, oriented to person, place, time, and situation. Cranial nerves II-XII grossly intact. Motor strength 5/5 in all extremities. Sensory grossly intact. Cerebellar exam normal. Normal gait. Psych: Awake, alert, with orientation to person, place and time. Behavior, mood, and affect are within normal limits. 21:57 ECG was reviewed by the Attending Physician. komal 23:18 Radiologist reports: no acute disease komal Vital Signs: 20:26 BP 160 / 92; Pulse 110; Resp 18 S; Temp 97.3(TE); Pulse Ox 98% on R/A; Weight 62.14 kg ca1 (R); Height 5 ft. 3 in. (160.02 cm) (R); Pain 0/10; 22:00 BP 149 / 76; Pulse 104; Resp 18; Pulse Ox 97% on R/A; em 20:26 Body Mass Index 24.27 (62.14 kg, 160.02 cm) ca1 NIH Stroke Scale Scores: 21:14 NIHSS Score: 0 komal 22:43 NIHSS Score: 2 em Nathalie Coma Score: 21:15 Eye Response: spontaneous(4). Verbal Response: oriented(5). Motor Response: obeys komal commands(6). Total: 15. MDM: 20:53 Patient medically screened. komal 21:15 Differential diagnosis: cerebral vascular accident, TIA, Dementia, tension headache. [facility] Data reviewed: vital signs, nurses notes, lab test result(s), EKG, radiologic studies, CT scan, plain films. Data interpreted: cafeteria monitor: rate is 110 beats/min, rhythm is regular, Pulse oximetry: on room air. Test interpretation: by ED physician or midlevel provider: ECG, plain radiologic studies. 05/14 21:13 Order name: Basic Metabolic Panel [facility] 05/14 21:13 Order name: CBC with Diff [facility] 05/14 21:13 Order name: LFT's [facility] 05/14 21:13 Order name: Magnesium [facility] 05/14 21:13 Order name: NT PRO-BNP [facility] 05/14 21:13 Order name: PT-INR; Complete Time: 22:06 [facility] 05/14 21:13 Order name: Troponin (emerg Dept Use Only); Complete Time: 22:18 [facility] 05/14 21:13 Order name: UDS; Complete Time: 22:06 [facility] 05/14 21:13 Order name: Basic Metabolic Panel; Complete Time: 22:18 EDMS 05/14 21:13 Order name: CBC with Automated Diff; Complete Time: 22:06 EDMI 05/14 21:13 Order name: Liver (Hepatic) Function; Complete Time: 22:18 EDMS 05/14 21:13 Order name: Magnesium; Complete Time: 22:18 EDMS 05/14 21:13 Order name: NT PRO-BNP; Complete Time: 22:18 EDMS 05/14 21:40 Order name: Urine Dipstick--Ancillary (enter results) tt3 05/14 21:13 Order name: XRAY Chest (1 view) [facility] 05/14 21:13 Order name: EKG; Complete Time: 21:14 [facility] 05/14 21:13 Order name: Cardiac monitoring; Complete Time: 21:14 [facility] 05/14 21:13 Order name: EKG - Nurse/Tech; Complete Time: 22:17 [facility] 05/14 21:13 Order name: IV Saline Lock; Complete Time: 21:39 [facility] 05/14 21:13 Order name: Labs collected and sent; Complete Time: 21:39 [facility] 05/14 21:13 Order name: O2 Per Protocol; Complete Time: 21:14 [facility] 05/14 21:13 Order name: CT Head Brain wo Cont [facility] 05/14 22:31 Order name: COVID-19 : Document "Date of Symptom Onset" if Symptomatic. tt3 05/14 22:55 Order name: Urine Dipstick-Ancillary; Complete Time: 23:17 EDMS 05/14 23:02 Order name: CORONAVIRUS EDMI 05/15 00:01 Order name: SARS-COV-2 RT PCR [facility] [place] 05/14 21:13 Order name: O2 Sat Monitoring; Complete Time: 21:14 [facility] 05/14 21:13 Order name: Urine Dipstick-Ancillary (obtain specimen); Complete Time: 21:39 [facility] EC:57 Rate is 97 beats/min. Rhythm is regular. QRS [place] is Normal. [place] interval is normal. QRS komal interval is normal. QT interval is normal. No Q waves. T waves are Normal. No ST changes noted. Clinical impression: Normal ECG and No evidence of ischemia. Interpreted by me. Reviewed by me. Administered Medications: 21:38 Drug: NS 0.9% 1000 ml Route: IV; Rate: 1 bolus; Site: left forearm; em 05/15 00:22 Follow up: IV Status: Completed infusion; IV Intake: 1000ml em 05/14 21:38 Drug: foLIC Acid 1 mg Route: IVPB; Site: right forearm; em 23:13 Follow up: Response: No adverse reaction; IV Status: Completed infusion em 22:16 Drug: Aspirin 81 mg Route: PO; em 23:13 Follow up: Response: No adverse reaction em 22:55 Drug: Atorvastatin 40 mg Route: PO; em 23:13 Follow up: Response: No adverse reaction em Disposition: 05/14/20 22:24 Hospitalization ordered by Prezas, Dany for Observation. Preliminary diagnosis are Transient cerebral ischemic attack, unspecified - LEFT ARM AND LEG, NUMBNESS, Tobacco abuse counseling, Tobacco use. - Bed requested for Telemetry/MedSurg (observation). - Status is Observation. rr5 - Condition is Fair. - Problem is new. - Symptoms have improved. NIH Stroke Scale - NIH Stroke Score Date: 05/14/2020 Time: 21:14 Total Score = 0 1a. Level of Consciousness (LOC) - 0(Alert) 1b. Level of Consciousness (LOC) (Year \\T\\ Age) - 0(Both) 1c. LOC Commands (Open \\T\\ Closes Eyes/Senior Education Specialist) - 0(Both) 2. Best Gaze (Lateral Gaze Paresis) - 0(Normal) 3. Visual Field Loss - 0(No visual loss) 4. Facial Palsy - 0(Normal) 5a. Left Arm: Motor (10-second hold) - 0(No drift) 5b. Right Arm: Motor (10-second hold) - 0(No drift) 6a. Left Leg: Motor (5-second hold - always test supine) - 0(No drift) 6b. Right Leg: Motor (5-second hold - always test supine) - 0(No drift) 7. Limb Ataxia (finger/nose \\T\\ heel/benton - test with eyes open) - 0(Absent) 8. Sensory Loss (pinprick arms/legs/face) - 0(Normal) 9. Best Language: Aphasia (description/naming/reading) - 0(No aphasia) 10. Dysarthria (speech clarity - read or repeat words) - 0(Normal) 11. Extinction and Inattention (visual/tactile/auditory/spatial/personal) - 0(No abnormality) Initials: [facility] NIH Stroke Scale - NIH Stroke Score Date: 05/14/2020 Time: 22:43 Total Score = 2 1a. Level of Consciousness (LOC) - 0(Alert) 1b. Level of Consciousness (LOC) (Year \\T\\ Age) - 0(Both) 1c. LOC Commands (Open \\T\\ Closes Eyes/Senior Education Specialist) - 0(Both) 2. Best Gaze (Lateral Gaze Paresis) - 0(Normal) 3. Visual Field Loss - 0(No visual loss) 4. Facial Palsy - 0(Normal) 5a. Left Arm: Motor (10-second hold) - 0(No drift) 5b. Right Arm: Motor (10-second hold) - 0(No drift) 6a. Left Leg: Motor (5-second hold - always test supine) - 1(Drift) 6b. Right Leg: Motor (5-second hold - always test supine) - 0(No drift) 7. Limb Ataxia (finger/nose \\T\\ heel/benton - test with eyes open) - 0(Absent) 8. Sensory Loss (pinprick arms/legs/face) - 1(Mild to moderate loss) 9. Best Language: Aphasia (description/naming/reading) - 0(No aphasia) 10. Dysarthria (speech clarity - read or repeat words) - 0(Normal) 11. Extinction and Inattention (visual/tactile/auditory/spatial/personal) - 0(No abnormality) Initials: em Signatures: Dispatcher [employer] EDMS Ameena Sebastian RN Vivek Cuadra MD MD cha Munoz, Edgar, RN RN em Alexandre Candelaria, ART INSTALLER-C ART INSTALLER-Cla1 Mode Stanley RN RN rr5 AcMarisol young RN RN ca1 Corrections: (The following items were deleted from the chart) 05/15 00:02 05/14 22:24 Hospitalization Ordered by Dany Han DO for Observation. Preliminary diagnosis is Transient cerebral ischemic attack, unspecified - LEFT ARM AND LEG, NUMBNESS; Tobacco abuse counseling; Tobacco use. Bed requested for Telemetry/MedSurg (observation). Status is Observation. Condition is Fair. Problem is new. Symptoms have improved. [facility] 05/15 00:33 00:02 05/14/2020 22:24 Hospitalization Ordered by Dany Han DO for rr5 Observation. Preliminary diagnosis is Transient cerebral ischemic attack, unspecified - LEFT ARM AND LEG, NUMBNESS; Tobacco abuse counseling; Tobacco use. Bed requested for Telemetry/MedSurg (observation). Status is Observation. Condition is Fair. Problem is new. Symptoms have improved. reg
[2020-05-14] MEDS ORDERED: ASPIRIN 81 MG CHEWABLE TABLET ONE (22:30)
[2020-05-14 22:55] LABS: Urine Blood 2+ (NEG); Urine Glucose NEGATIVE (NEG); Urine Protein NEGATIVE (NEG); Urine Specific Gravity 1.015 (1.005-1.030)
[2020-05-14] MEDS ORDERED: ATORVASTATIN 20 MG TAB ONE (23:08)
--- NOTE | 2020-05-15 00:07 | P.HP ---
Certification for Inpatient Patient admitted to: Observation With expected LOS: <2 Midnights Patient will require the following post-hospital care: None Practitioner: I am a practitioner with admitting privileges, knowledge of patient current condition, hospital course, and medical plan of care. Services: Services provided to patient in accordance with Admission requirements found in Title 42 Section 412.3 of the Code of Federal Regulations Patient History Date of Service: 05/15/20 Reason for admission: Left lower extremity weakness History of Present Illness: 59-year-old female with history of hypertension, hyperlipidemia, CVA 04/26/2020 presents emergency department for left lower extremity weakness. Patient was admitted on April 26, 2020 with left-sided weakness, fall. MRI demonstrated acute to subacute nonhemorrhagic infarction involving a 4-5 cm area of the anterior right frontal lobe in the right middle cerebral artery dis tribution. Patient was admitted to the hospital, started on Plavix, aspirin, statin therapy. Patient did well with physical therapy and was discharged to follow up with neurology on outpatient basis. Patient reports she is doing well at home, of weakness/numbness to left lower extremity had improved but noticed yesterday that she began having some increased numbness/weakness of left lower extremity again and presented to the ER for this reason. Patient was evaluated in the emergency department, CT head negative for any acute findings, labs unremarkable. On exam patient noted to have some left lower extremity drift and decrease in sensation. ED provider wishes to admit patient under observation for further evaluation and management. Allergies Penicillins Allergy (Verified 04/26/20 04:56) Unknown Home Medications: Amlodipine [Norvasc*] 2.5 mg PO BID 04/26/20 Aspirin [Aspirin EC 81 MG] 162 mg PO DAILY #60 tablet. 04/26/20 Atorvastatin Calcium [Lipitor*] 40 mg PO BEDTIME #30 tab 04/26/20 Clopidogrel Bisulfate [Plavix*] 75 mg PO DAILY #30 tablet 04/26/20 Losartan Potassium [Cozaar*] 50 mg PO BID 04/26/20 - Past Medical/Surgical History Diabetic: No -: HTN -: Tachycardia -: CVA -: Tubal Psychosocial/ Personal History: Patient unemployed, lives with her daughter - Family History Father -: Heart disease, Hypertension Mother -: Hypertension, Cancer Notes: parkinsons. kidney cancer Brother -: Diabetes Notes: parkinsons - Social History Smoking Status: Current some day smoker Counseled patient to stop smoking for: less than 10 minutes Smoking therapy provided: Yes Alcohol use: No CD- Drugs: Yes Caffeine use: No Place of Residence: Home Review of Systems 10-point ROS is otherwise unremarkable Musculoskeletal: As per HPI Neurological: As per HPI Physical Examination - Physical Exam General: Alert, In no apparent distress, Oriented x3 HEENT: Atraumatic, PERRLA, Mucous membr. moist/pink Neck: Supple, 2+ carotid pulse no bruit, No LAD Respiratory: Clear to auscultation bilaterally, Normal air movement Cardiovascular: Regular rate/rhythm, Normal S1 S2 Capillary refill: <2 Seconds Gastrointestinal: Normal bowel sounds, No tenderness Musculoskeletal: No tenderness Integumentary: No rashes Neurological: Normal gait, Normal speech, Normal tone, Normal affect, Abnormal strength (4/5 strength left lower extremity, mild left lower extremity drift), Abnormal sensation (Patient reports decreased sensation to the left lower extremity) - Studies Laboratory Data (last 24 hrs) 05/14/20 21:35: PT 11.2, INR 0.97 05/14/20 21:35: WBC 8.10, Hgb 14.5, Hct 41.9, Plt Count 243 05/14/20 21:35: Sodium 140, Potassium 3.5, BUN 15, Creatinine 0.78, Glucose 195 H, Magnesium 2.2, Total Bilirubin 0.3, AST 16, ALT 42, Alkaline Phosphatase 98 Assessment and Plan - Plan Assessment Left lower extremity weakness/paresthesia history of recent CVA in the right MCA distribution Hypertension Hyperlipidemia Plan Left lower extremity weakness/paresthesia history of recent CVA in the right MCA distribution: Continue aspirin, Plavix, statin therapy. Q.4h neuro checks, neurology consult in place. Physical therapy consult in place to evaluate ambulation. Will need to discuss case with neurology to determine if there is need for additional evaluation, if there are no changes patient can likely be discharged in the morning. Lovenox 40 mg subcutaneous once daily for DVT prophylaxis. Hypertension: Continue losartan/amlodipine. Hyperlipidemia: Continue atorvastatin 40 mg p.o. daily. Discharge Plan: Home Plan to discharge in: 24 Hours - Advance Directives Does patient have a Living Will: No Does patient have a Durable POA for Healthcare: No - Code Status/Comfort Care Code Status Assessed: Yes (Full code) Critical Care: No Time Spent Managing Pts Care (In Minutes): 55
[2020-05-15] MEDS ORDERED: ONDANSETRON 4 MG/2 ML VIAL IV PRN (00:30)
[2020-05-15] MEDS ORDERED: ACETAMINOPHEN 500 MG TAB PO PRN (00:30)
[2020-05-15 01:08] VITALS: O2SAT 97
[2020-05-15 01:11] VITALS: BMI 26.4
[2020-05-15] MEDS: NICOTINE 21 MG/PAT TD SCH ×2 (01:25→07:59)
[2020-05-15 05:49] LABS: Absolute Lymphocytes (CBC) 2.4 K/uL (0.7-4.9); Hematocrit 36.3 % (36.0-45.0); Lymphocytes % 34.4 % (15.3-44.8); MPV 8.8 fL (7.6-11.3); RBC Red Blood Cell Count 3.74 M/uL (3.86-4.86)
[2020-05-15 06:12] LABS: Magnesium 2.2 mg/dL (1.8-2.4); Potassium 4.2 mmol/L (3.5-5.1); Thyroid Stimulating Hormone 2.13 uIU/mL (0.360-3.740)
[2020-05-15] MEDS ORDERED: INFLUENZA VACCINE (for 3y+) 0.5 ML DOSE IMVAC ONE (08:00)
--- NOTE | 2020-05-15 08:13 | RAD REPORT ---
EXAM DESCRIPTION: Sukhwinder Single View3 9:44 pm CLINICAL HISTORY: Cough COMPARISON: 2019 FINDINGS: The lungs appear clear of acute infiltrate. The heart is normal size IMPRESSION: No acute abnormalities displayed
--- NOTE | 2020-05-15 08:58 | P.DS ---
Admission Date: 05/15/20 Discharge Date: 05/15/20 Primary Care Provider: Edda Gage Disposition: ROUTINE DISCHARGE Discharge Condition: GOOD Reason for Admission: Left lower extremity weakness Consultations: Neurology-Dr. Delong Procedures: COVID: Negative CXR: COMPARISON: 2019 FINDINGS: The lungs appear clear of acute infiltrate. The heart is normal size IMPRESSION: No acute abnormalities displayed CT scan: No acute abnormality. MRI Brain: FINDINGS: No new acute intracranial infarction changes seen. There is thin gyriform T1 hyperintense signal in the medial anterior right frontal lobe. There is remnant T2/IR cortical and subcortical signal present. This is the site prior infarction detailed April 26. Current signal abnormality is consistent with aging infarction. No intraparenchymal hemorrhage component. Patient has significant cerebral chronic ischemic change. Atrophy changes are present. These are relatively mild but greater than typically seen in a patient this age. Ventricles are normal. There is no edema or shift of midline structures. No extra-axial fluid collections. Ferrell-matter/white matter junction is preserved. Signal voids are seen as a normal finding in the major intracranial vessels. No globe or orbital content abnormality. Mastoid air cells and paranasal sinuses are clear. IMPRESSION: No acute infarction changes present. Medial anterior right frontal lobe signal abnormality is present representing the expected aging of the infarction seen April 26. Mild atrophy and prominent chronic ischemic changes are present advanced for the patient's age. Medical Problem List: Left lower extremity weakness/paresthesia likely TIA with recent history of CVA in the right MCA distribution Hypertension Hyperlipidemia Brief History of Present Illness: 59-year-old female with history of hypertension, hyperlipidemia, CVA 04/26/2020 presents emergency department for left lower extremity weakness. Patient was admitted on April 26, 2020 with left-sided weakness, fall. MRI at that time demonstrated acute to subacute nonhemorrhagic infarction involving a 4-5 cm area of the anterior right frontal lobe in the right middle cerebral artery distribution. The patient did well at that time and was discharged home. On this admission. Patient reported some weakness and numbness to the left lower extremity. Patient reports compliance with her medication. CT scan shows no significant abnormalities. Patient admitted for further evaluation and treatment. Hospital Course: Patient presented with left lower extremity weakness care is the. This is likely TIA. Patient with recent history of CVA in the right middle cerebral artery distribution. Patient was observed. CT scan unremarkable. MRI performed showed no acute stroke. Patient now back to baseline. Patient able to move appropriately with physical therapy. Case discussed in detail with Neurology. Medications have been adjusted. Statin medication increased to 80 mg daily. Compliance with medication addressed in detail with the patient. Blood pressures initially elevated now within normal range. At discharge patient will continue with aspirin 81 mg daily, Plavix 75 mg daily, Lipitor 80 mg daily, folic acid 1 mg daily, Norvasc 5 mg daily, and losartan 50 mg daily. Fall precautions in place. Recommend follow up with neurology in 1-2 weeks to follow up hospitalization. Neurology also recommends that the patient continue with outpatient rehab at the outpatient facility to help with ambulation and strength. Patient with hypertension. Blood pressures initially elevated. Medications were restarted and adjusted. Blood pressure now better controlled. At discharge patient will continue with Norvasc 5 mg daily and losartan 50 mg daily. Recommend to maintain blood pressure less than 130/80. Further adjustment can be done by her PCP. Patient with hyperlipidemia. LDL above 70. Lipitor increased for better control. At discharge patient will continue with Lipitor 80 mg daily. Recommend to recheck fast lipid panel in 4-6 weeks to monitor her progress. Further adjustment may be required. This can be done with the help of her PCP. Tobacco cessation education provided. Nicoderm patch provided to help with tobacco cessation. Vital Signs/Physical Exam: Temp Pulse Resp BP Pulse Ox 98.2 F 74 16 127/65 98 05/15/20 04:00 05/15/20 04:00 05/15/20 04:00 05/15/20 04:00 05/15/20 04:00 General: Alert, In no apparent distress, Oriented x3, Cooperative HEENT: Atraumatic Neck: Supple Respiratory: Clear to auscultation bilaterally, Normal air movement Cardiovascular: Normal pulses, Regular rate/rhythm Gastrointestinal: Normal bowel sounds, Soft and benign, Non-distended, No tenderness, No masses, No rebound, No guarding Musculoskeletal: No erythema, No tenderness, No warmth Integumentary: No tenderness/swelling, No erythema, No warmth, No cyanosis Neurological: Normal speech, Normal strength at 5/5 x4 extr, Normal tone, Normal affect Laboratory Data at Discharge: WBC 6.90 K/uL (4.3-10.9) D 05/15/20 05:35 Hgb 12.3 g/dL (12.0-15.0) 05/15/20 05:35 Hct 36.3 % (36.0-45.0) 05/15/20 05:35 Plt Count 225 K/uL (152-406) 05/15/20 05:35 PT 11.2 SECONDS (9.5-12.5) 05/14/20 21:35 INR 0.97 05/14/20 21:35 Sodium 144 mmol/L (136-145) 05/15/20 05:35 Potassium 4.2 mmol/L (3.5-5.1) 05/15/20 05:35 BUN 14 mg/dL (7-18) 05/15/20 05:35 Creatinine 0.69 mg/dL (0.55-1.3) 05/15/20 05:35 Glucose 97 mg/dL (74-106) 05/15/20 05:35 Magnesium 2.2 mg/dL (1.8-2.4) 05/15/20 05:35 Total Bilirubin 0.3 mg/dL (0.2-1.0) 05/14/20 21:35 AST 16 U/L (15-37) 05/14/20 21:35 ALT 42 U/L (12-78) 05/14/20 21:35 Alkaline Phosphatase 98 U/L (45-117) 05/14/20 21:35 Triglycerides 121 mg/dL (<150) 05/15/20 05:35 Cholesterol 153 mg/dL (<200) 05/15/20 05:35 HDL Cholesterol 40 mg/dL (40-60) 05/15/20 05:35 Cholesterol/HDL Ratio 3.83 05/15/20 05:35 Home Medications: Amlodipine [Norvasc*] 5 mg PO DAILY #30 tab 05/15/20 Aspirin [Aspirin EC 81 MG] 81 mg PO DAILY #90 tablet. 05/15/20 Atorvastatin Calcium [Lipitor] 80 mg PO DAILY #30 tablet 05/15/20 Clopidogrel Bisulfate [Plavix*] 75 mg PO DAILY #30 tablet 05/15/20 Folic Acid 1 mg PO DAILY #90 tablet 05/15/20 Losartan Potassium [Cozaar*] 50 mg PO DAILY #30 tablet 05/15/20 Nicotine [Nicoderm*] 21 mg TD DAILY #30 patch.td24 03/02/21 New Medications: Aspirin [Aspirin EC 81 MG] 81 mg PO DAILY #90 tablet. Losartan Potassium [Cozaar*] 50 mg PO DAILY #30 tablet Folic Acid 1 mg PO DAILY #90 tablet Atorvastatin Calcium [Lipitor] 80 mg PO DAILY #30 tablet Nicotine [Nicoderm*] 21 mg TD DAILY #30 patch.td24 Amlodipine [Norvasc*] 5 mg PO DAILY #30 tab Clopidogrel Bisulfate [Plavix*] 75 mg PO DAILY #30 tablet Physician Discharge Instructions: Patient presented with left lower extremity weakness care is the. This is likely TIA. Patient with recent history of CVA in the right middle cerebral artery distribution. Patient was observed. CT scan unremarkable. MRI performed shows no acute stroke. Patient now back to baseline. Patient able to move appropriately with physical therapy. Case discussed in detail with Neurology. Medications have been adjusted. Statin medication increased to 80 mg daily. Compliance with medication addressed in detail with the patient. Blood pressures initially elevated now within normal range. At discharge patient will continue with aspirin 81 mg daily, Plavix 75 mg daily, Lipitor 80 mg daily, folic acid 1 mg daily, Norvasc 5 mg daily, and losartan 50 mg daily. Fall precautions in place. Recommend follow up with neurology in 1-2 weeks to follow up hospitalization. Neurology also recommends that the patient continue with outpatient rehab at the outpatient facility to help with ambulation and strength. Patient with hypertension. Blood pressures initially elevated. Medications were restarted and adjusted. Blood pressure now better controlled. At discharge patient will continue with Norvasc 5 mg daily and losartan 50 mg favian ly. Recommend to maintain blood pressure less than 130/80. Further adjustment can be done by her PCP. Patient with hyperlipidemia. LDL above 70. Lipitor increased for better control. At discharge patient will continue with Lipitor 80 mg daily. Recommend to recheck fast lipid panel in 4-6 weeks to monitor her progress. Further adjustment may be required. This can be done with the help of her PCP. Tobacco cessation education provided. Nicoderm patch provided to help with tobacco cessation. Diet: AHA Activity: Fall precautions Followup: NONE,NONE [Primary Care Provider] - Time spent managing pt's care (in minutes): 55
[2020-05-15] MEDS ORDERED: ENOXAPARIN 40 MG/0.4 ML SQ SCH (09:00)
[2020-05-15] MEDS ORDERED: LOSARTAN POTASSIUM 50 MG TABLET PO SCH (09:00)
[2020-05-15] MEDS ORDERED: CLOPIDOGREL 75 MG TABLET PO SCH (09:00)
[2020-05-15] MEDS ORDERED: ASPIRIN EC 81 MG TAB PO SCH (09:00)
[2020-05-15] MEDS ORDERED: FOLIC ACID 1 MG TABLET PO SCH (09:00)
[2020-05-15] MEDS ORDERED: POTASSIUM 25 MEQ EFFERV TAB PO ONE (09:00)
[2020-05-15] MEDS ORDERED: AMLODIPINE 5 MG TAB PO SCH (09:00)
--- NOTE | 2020-05-15 10:06 | RAD REPORT ---
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 FINDINGS: There is no acute hemorrhage, mass effect or midline shift. Ferrell-white differentiation is preserved. There is no hydrocephalus. There is no significant volume loss for age. The calvarium is intact. Orbits and globes are unremarkable. The paranasal sinuses are clear. Mastoid air cells are clear. IMPRESSION: No acute intracranial findings. Electronically signed by: Idris Lopez MD 05/14/2020 10:12 PM DOOR MACHINE OPERATOR Due to temporary technical issues with the PACS/Fluency reporting system, reports are being signed by the in house radiologists without review as a courtesy to insure prompt reporting. The interpreting radiologist is fully responsible for the content of the report.
[2020-05-15 10:13] VITALS: TEMP 98.5
--- NOTE | 2020-05-15 12:29 | EKG ---
Test Date: 2020-05-14 Test Time: 21:41:54 Door Manager: COTY MEASUREMENT RESULTS: Intervals: Rate: 97 WA: 140 QRSD: 76 QT: 348 QTc: 441 [place]: P: 52 WA: 140 QRS: 39 T: 56 INTERPRETIVE STATEMENTS: Normal sinus rhythm Normal ECG Compared to ECG 04/26/2020 05:34:19 No significant changes Electronically Signed On 05-15-20 12:27:44 INTERVENTION NURSE by Kenneth Green
--- NOTE | 2020-05-15 15:48 | RAD REPORT ---
EXAM DESCRIPTION: MRI - Brain Wo Cont - 05/15/2020 2:59 pm CLINICAL HISTORY: Hx of CVA, LLE weakness COMPARISON: Head Brain Wo Cont dated 05/14/2020; Brain W/Wo Cont dated 04/26/2020 TECHNIQUE: Sagittal T1-weighted images were obtained along with axial PD, heavily T2-weighted and T2 -FLAIR images. Axial DWI and ADC mapping sequences were also obtained along with coronal heavily T2-w eighted images. FINDINGS: No new acute intracranial infarction changes seen. There is thin gyriform T1 hyperintense signal in the medial anterior right frontal lobe. There is remnant T2/IR cortical and subcortical sig nal present. This is the site prior infarction detailed April 26. Current signal abnormality is co nsistent with aging infarction. No intraparenchymal hemorrhage component. Patient has significant cerebral chronic ischemic change. Atrophy changes are present. These are rela tively mild but greater than typically seen in a patient this age. Ventricles are normal. There is no edema or shift of midline structures. No extra-axial fluid collections. Ferrell-matter/white matter carli ction is preserved. Signal voids are seen as a normal finding in the major intracranial vessels. No globe or orbital content abnormality. Mastoid air cells and paranasal sinuses are clear. IMPRESSION: No acute infarction changes present. Medial anterior right frontal lobe signal abnormality is present representing the expected aging of t he infarction seen April 26. Mild atrophy and prominent chronic ischemic changes are present advanced for the patient's age.
[2020-05-15 17:38] VITALS: BP 142/79
[2020-05-15] MEDS ORDERED: ATORVASTATIN 40 MG TAB PO SCH ×2 (21:00)
== END 2020-05-15 19:15 | disposition home or self-care (01) | DRG 69 ==
LOC: ER 20:18 → ERHOLD 23:17 → 2ND 05-15 00:28 → OBSVTOIN 05-15 08:21
PROVIDERS: ADMIT Family Medicine; ATTEND Family Medicine
DX: G45.9 Transient cerebral ischemic attack, unspecified (principal); G81.94 Hemiplegia, unspecified affecting left nondominant side; I10 Essential (primary) hypertension; E78.5 Hyperlipidemia, unspecified; F17.210 Nicotine dependence, cigarettes, uncomplicated; R29.700 NIHSS score 0; Z88.0 Allergy status to penicillin; Z79.02 Long term (current) use of antithrombotics/antiplatelets; Z79.899 Other long term (current) drug therapy; Z79.82 Long term (current) use of aspirin; Z56.0 Unemployment, unspecified; Z98.51 Tubal ligation status; Z86.73 Personal history of transient ischemic attack (TIA), and cerebral infarction without residual deficits; Z71.6 Tobacco abuse counseling; Z20.822 Contact with and (suspected) exposure to COVID-19
CPT/HCPCS: 36415; 70450; 70551; 71045; 80048; 80061; 80076; 80307; 81003; 83735; 83880; 84132; 84439; 84443; 84484; 85025; 85610; 93005; 96361; 96365; 96366; 97116; 97161; 99285; G0378; J1650; J7030; U0003

== ENCOUNTER 2021-10-15 09:33 | Inpatient (IN) | payer SELFPAY ==
[2021-10-15] MEDS ORDERED: ASPIRIN 81 MG CHEWABLE TABLET ONE ×2 (10:02→10:06)
[2021-10-15] MEDS ORDERED: NA CHLORIDE 0.9% 1,000 ML ONE (10:03)
[2021-10-15] MEDS ORDERED: ONDANSETRON 4 MG/2 ML VIAL ONE (10:03)
[2021-10-15] MEDS ORDERED: MORPHINE 2 MG/ML SYR ONE (10:03)
[2021-10-15 10:12] LABS: Absolute Lymphocytes (CBC) 1.9 K/uL (0.7-4.9); Hematocrit 42.4 % (36.0-45.0); Lymphocytes % 29.2 % (15.3-44.8); MCV 92.2 fL (80-100); MPV 8.4 fL (7.6-11.3)
[2021-10-15 10:24] LABS: SARS-CoV-2 Antigen Rapid Res Negative (Negative)
[2021-10-15 10:32] LABS: ALT/SGPT 36 U/L (12-78); AST/SGOT 17 U/L (15-37); Alkaline Phosphatase 131 U/L (45-117); BUN Blood Urea Nitrogen 10 mg/dL (7-18); Bicarbonate 29 mmol/L (21-32); Bilirubin Total 0.3 mg/dL (0.2-1.0); Glomerular Filtration Rate 81 ml/min (=/>90); Glucose Level 120 mg/dL (74-106); Lipase 166 U/L (73-393); Magnesium 2.3 mg/dL (1.8-2.4); NT PRO-BNP 158 pg/mL (<125); Potassium 4.1 mmol/L (3.5-5.1); Protein, Total 7.8 g/dL (6.4-8.2); Sodium Level 139 mmol/L (136-145); Troponin High Sensitivity 4.4 pg/mL (<58.9)
[2021-10-15 10:34] LABS: Bilirubin Direct < 0.1 mg/dL (0-0.2)
[2021-10-15 10:43] LABS: Protime INR 0.92
--- NOTE | 2021-10-15 11:15 | RAD REPORT ---
EXAM DESCRIPTION: RAD - Chest Single View - 10/15/2021 10:14 am CLINICAL HISTORY: CHEST PAIN COMPARISON: Portable 05/14/2020 TECHNIQUE: AP portable chest image was obtained 10/15/2021 10:14 am . FINDINGS: Chronic interstitial lung disease is present accentuated by shallow inspiration and under penetrated technique. Parenchymal pattern is not clearly different from comparison. No hilar mass or lymphadenopathy seen. Trachea is midline. Heart and vasculature are normal. No measu rable pleural effusion and no pneumothorax. No acute bony abnormality seen. No acute aortic findings suspected. IMPRESSION: No acute cardiopulmonary process. No significant change from comparison study.
[2021-10-15] MEDS ORDERED: FAMOTIDINE 20 MG/2 ML VIAL IV ONE (11:19)
--- NOTE | 2021-10-15 11:29 | RAD REPORT ---
EXAM DESCRIPTION: CT - Chest For Pe Angio - 10/15/2021 11:09 am CLINICAL HISTORY: chest pain COMPARISON: No comparisons TECHNIQUE: Dynamically enhanced 3 mm thick images of the chest were obtained during administration o f approximately 150mL Isovue 370 IV contrast. Coronal and oblique MIP reconstruction images were gene rated and reviewed. Exam utilizes a protocol to evaluate the pulmonary arterial tree. All CT scans are performed using dose optimization technique as appropriate and may include automated exposure control or mA/KV adjustment according to patient size. FINDINGS: No pulmonary emboli are identified. The aorta as imaged shows no acute or suspicious finding. No pericardial thickening or effusion. No infiltrate or mass in the lung parenchyma. No pleural effusion or pleural thickening. No mediastinal or hilar suspicious masses. No chest wall masses or abnormal axillary lymphadenopathy. No endobronchial lesions seen. IMPRESSION: No pulmonary emboli identified. No other significant or suspicious findings.
--- OUTSIDE RECORDS SUMMARY | 2021-10-15 11:33 | XMS REPORT | Continuity of Care Document ---
:1960 Author Organization [facility] t Address [address] [place] [address] Care Team Providers Name Role Phone Jamila STOVALL, [facility] Primary Care Physician [phone] Problems This patient has no known problems. Allergies, Adverse Reactions, Alerts Allergy Allergy Status Severity Reaction(s) Onset Inactive Treating Comm ents Source Name Type Date Date Clinician Mes[place] - Propensi Active Intraven ty to 7-07 ous adverse 00:00: reaction 00 to drug Penicill Propensi Active ins ty to 2-16 adverse 00:00: reaction 00 to drug Medications Ordered Filled Start Stop Current Ordering Indication Dosage Frequency Signature Comments Components Source Medication Medication Date Date Medication? Clinician (SIG) Name Name Prozac 20 2021-0 No 1mg mg capsule 09-20 00:00: 00 ProAir HFA 2021-0 No 12mcg/a 90 7-06 ctuatio mcg/actuati 00:00: n on aerosol 00 inhaler ProAir HFA 2021-0 No 12mcg/a 90 7-06 ctuatio mcg/actuati 00:00: n on aerosol 00 inhaler clopidogrel 2-0 No 1mg 75 mg 6-27 tablet 00:00: 00 clopidogrel 2-0 No 1mg 75 mg 6-27 tablet 00:00: 00 Prozac 20 2-0 No 1mg mg capsule 08-29 00:00: 00 Prozac 20 2-0 No 1mg mg capsule 08-29 00:00: 00 atorvastati 2022-0 No 1mg n 40 mg 6-09 tablet 00:00: 00 losartan 50 2-0 No 1mg mg tablet 08-22 00:00: 00 atorvastati 2022-0 No 1mg n 40 mg 6-09 tablet 00:00: 00 losartan 50 2022-0 No 1mg mg tablet 6 00:00: 00 clopidogrel 2022-0 No 1mg 75 mg 5-26 tablet 00:00: 00 clopidogrel 2022-0 No 1mg 75 mg 5-26 tablet 00:00: 00 clindamycin 2022-0 No 1mg HCl 300 mg 5-25 capsule 00:00: 00 clindamycin 2022-0 No 1mg HCl 300 mg 5-25 capsule 00:00: 00 Prozac 20 2022-0 No 1mg mg capsule 08-05 00:00: 00 Prozac 20 2022-0 No 1mg mg capsule 08-05 00:00: 00 triamcinolo 2022-0 No 1% ne 5-18 acetonide 00:00: 0.1 % 00 topical ointment triamcinolo 2022-0 No 1% ne 5-18 acetonide 00:00: 0.1 % 00 topical ointment metoprolol 2022-0 No 1mg succinate 5-16 ER 100 mg 00:00: tablet,exte 00 nded release 24 hr metoprolol 2022-0 No 1mg succinate 5-16 ER 100 mg 00:00: tablet,exte 00 nded release 24 hr amlodipine 2-0 No 1mg 5 mg tablet 07-22 00:00: 00 amlodipine 2022-0 No 1mg 5 mg tablet 07-22 00:00: 00 Prozac 20 2-0 No 1mg mg capsule 07-19 00:00: 00 Prozac 20 2022-0 No 1mg mg capsule 07-19 00:00: 00 atorvastati 2022-0 No 2mg n 20 mg 5-04 tablet 00:00: 00 atorvastati 2022-0 No 2mg n 20 mg 5-04 tablet 00:00: 00 clopidogrel 2022-0 No 1mg 75 mg 4-22 tablet 00:00: 00 clopidogrel 2022-0 No 1mg 75 mg 4-22 tablet 00:00: 00 Dose 2022-0 No Unknown 4-11 00:00: 00 Dose 2022-0 No Unknown 4-11 00:00: 00 atorvastati 2022-0 No 2mg n 20 mg 3-31 tablet 00:00: 00 losartan 50 2022-0 No 1mg mg tablet 3- 00:00: 00 atorvastati 2-0 No 2mg n 20 mg 3-31 tablet 00:00: 00 losartan 50 2-0 No 1mg mg tablet 3-31 00:00: 00 Prozac 20 2022-0 No 1mg mg capsule 3-28 00:00: 00 Prozac 20 2022-0 No 1mg mg capsule 3-28 00:00: 00 Dose 2022-0 No Unknown 3-15 00:00: 00 Dose 2022-0 No Unknown 3-15 00:00: 00 Dose 2022-0 No Unknown 3-15 00:00: 00 Dose 2022-0 No Unknown 3-15 00:00: 00 Dose 2022-0 No Unknown 3-15 00:00: 00 Dose 2022-0 No Unknown 3-15 00:00: 00 Dose 2022-0 No Unknown 3-15 00:00: 00 Dose 2022-0 No Unknown 3-15 00:00: 00 Dose 2022-0 No Unknown 3-15 00:00: 00 Dose 2022-0 No Unknown 3-15 00:00: 00 Dose 2022-0 No Unknown 3-15 00:00: 00 Dose 2022-0 No Unknown 3-15 00:00: 00 Dose 2022-0 No Unknown 3-15 00:00: 00 Dose 2022-0 No Unknown 3-15 00:00: 00 Dose 2022-0 No Unknown 3-15 00:00: 00 Dose 2022-0 No Unknown 3-15 00:00: 00 Dose 2022-0 No Unknown 3-15 00:00: 00 Dose 2022-0 No Unknown 3-15 00:00: 00 Dose 2022-0 No Unknown 3-15 00:00: 00 Dose 2022-0 No Unknown 3-15 00:00: 00 Dose 2022-0 No Unknown 3-15 00:00: 00 Dose 2022-0 No Unknown 3-15 00:00: 00 Dose 2022-0 No Unknown 3-15 00:00: 00 Dose 2022-0 No Unknown 3-15 00:00: 00 Dose 2022-0 No Unknown 3-15 00:00: 00 Dose 2022-0 No Unknown 3-15 00:00: 00 Dose 2022-0 No Unknown 3-15 00:00: 00 Dose 2022-0 No Unknown 3-15 00:00: 00 Dose 2022-0 No Unknown 3-15 00:00: 00 Dose 2022-0 No Unknown 3-15 00:00: 00 Dose 2022-0 No Unknown 3-15 00:00: 00 Dose 2022-0 No Unknown 3-15 00:00: 00 Dose 2022-0 No Unknown 3-15 00:00: 00 Dose 2022-0 No Unknown 3-15 00:00: 00 Dose 2022-0 No Unknown 3-15 00:00: 00 Dose 2022-0 No Unknown 3-15 00:00: 00 Dose 2022-0 No Unknown 3-15 00:00: 00 Dose 2022-0 No Unknown 3-15 00:00: 00 Dose 2022-0 No Unknown 3-15 00:00: 00 Dose 2022-0 No Unknown 3-15 00:00: 00 Dose 2022-0 No Unknown 3-15 00:00: 00 Dose 2022-0 No Unknown 3-15 00:00: 00 Dose 2022-0 No Unknown 3-15 00:00: 00 Dose 2022-0 No Unknown 3-15 00:00: 00 atorvastati 2022-0 No 2mg n 20 mg 3-01 tablet 00:00: 00 atorvastati 2022-0 No 2mg n 20 mg 3-01 tablet 00:00: 00 Dose 2-0 No Unknown 2-15 00:00: 00 Dose 2022-0 No Unknown 2-15 00:00: 00 amlodipine 2022-0 No 1mg 5 mg tablet 2-08 00:00: 00 amlodipine 2022-0 No 1mg 5 mg tablet 2-08 00:00: 00 Prozac 20 2022-0 No 1mg mg capsule 2-04 00:00: 00 Prozac 20 2022-0 No 1mg mg capsule 2-04 00:00: 00 ProAir HFA 2022-0 No 12mcg/a 90 2-01 ctuatio mcg/actuati 00:00: n on aerosol 00 inhaler ProAir HFA 2022-0 No 12mcg/a 90 2-01 ctuatio mcg/actuati 00:00: n on aerosol 00 inhaler Prozac 20 2022-0 No 1mg mg capsule 1-25 00:00: 00 Prozac 20 2022-0 No 1mg mg capsule 1-25 00:00: 00 clopidogrel 2-0 No 1mg 75 mg 1-07 tablet 00:00: 00 clopidogrel 2-0 No 1mg 75 mg 1-07 tablet 00:00: 00 Dose 2020-1 No Unknown 2-24 00:00: 00 Dose 2020-1 No Unknown 2-24 00:00: 00 Prozac 20 2020-1 No 1mg mg capsule 2-23 00:00: 00 Prozac 20 2020-1 No 1mg mg capsule 2-23 00:00: 00 diclofenac 2020-1 No 1% 1 % topical 2-07 gel 00:00: 00 metoprolol 2020-1 No 1mg succinate 2-07 ER 100 mg 00:00: tablet,exte 00 nded release 24 hr metoprolol 2020-1 No 1mg succinate 2-07 ER 100 mg 00:00: tablet,exte 00 nded release 24 hr ibuprofen 2020-1 No 1mg 800 mg 2-07 tablet 00:00: 00 diclofenac 2020-1 No 1% 1 % topical 2-07 gel 00:00: 00 metoprolol 2020-1 No 1mg succinate 2-07 ER 100 mg 00:00: tablet,exte 00 nded release 24 hr metoprolol 2020-1 No 1mg succinate 2-07 ER 100 mg 00:00: tablet,exte 00 nded release 24 hr ibuprofen 2020-1 No 1mg 800 mg 2-07 tablet 00:00: 00 Prozac 10 2020-1 No 1mg mg capsule 2-06 00:00: 00 Prozac 10 2020-1 No 1mg mg capsule 2-06 00:00: 00 Prozac 10 2020-1 No 1mg mg capsule 2-03 00:00: 00 Prozac 10 2020-1 No 1mg mg capsule 2-03 00:00: 00 Prozac 10 2020-1 No 1mg mg capsule 1-05 00:00: 00 Prozac 10 2020-1 No 1mg mg capsule 1-05 00:00: 00 ProAir HFA 2020-1 No 12mcg/a 90 0-27 ctuatio mcg/actuati 00:00: n on aerosol 00 inhaler metoprolol 2020-1 No 1mg succinate 0-27 ER 100 mg 00:00: tablet,exte 00 nded release 24 hr atorvastati 2020-1 No 2mg n 20 mg 0-27 tablet 00:00: 00 losartan 50 2020-1 No 1mg mg tablet 027 00:00: 00 amlodipine 2020-1 No 1mg 5 mg tablet 027 00:00: 00 losartan 50 2020-1 No 1mg mg tablet 027 00:00: 00 ProAir HFA 2020-1 No 12mcg/a 90 0-27 ctuatio mcg/actuati 00:00: n on aerosol 00 inhaler metoprolol 2020- No 1mg succinate 0-27 ER 100 mg 00:00: tablet,exte 00 nded release 24 hr atorvastati 2020-1 No 2mg n 20 mg 0-27 tablet 00:00: 00 losartan 50 2020-1 No 1mg mg tablet 0 00:00: 00 amlodipine 2020-1 No 1mg 5 mg tablet 0 00:00: 00 losartan 50 2020-1 No 1mg mg tablet 0 00:00: 00 Lexapro 10 2020-1 No 1mg mg tablet 0-04 00:00: 00 Prozac 10 2020-1 No 1mg mg capsule 0-04 00:00: 00 Lexapro 10 2020-1 No 1mg mg tablet 0-04 00:00: 00 Prozac 10 2020-1 No 1mg mg capsule 0-04 00:00: 00 atorvastati 1-0 No 2mg n 20 mg 9- tablet 00:00: 00 losartan 50 1-0 No 1mg mg tablet 11-26 00:00: 00 amlodipine 1-0 No 1mg 5 mg tablet 11-26 00:00: 00 atorvastati 1-0 No 2mg n 20 mg 9- tablet 00:00: 00 losartan 50 1-0 No 1mg mg tablet 11-26 00:00: 00 amlodipine 2021-0 No 1mg 5 mg tablet 11-26 00:00: 00 losartan 50 1-0 No 1mg mg tablet 11-22 00:00: 00 losartan 50 1-0 No 1mg mg tablet 11-22 00:00: 00 Lexapro 20 2021-0 No 1mg mg tablet 11-20 00:00: 00 Lexapro 20 1-0 No 1mg mg tablet 11-20 00:00: 00 ProAir HFA 2021-0 No 12mcg/a 90 8-15 ctuatio mcg/actuati 00:00: n on aerosol 00 inhaler ProAir HFA 1-0 No 12mcg/a 90 8-15 ctuatio mcg/actuati 00:00: n on aerosol 00 inhaler Lexapro 10 1-0 No 1mg mg tablet 10-16 00:00: 00 Lexapro 10 1-0 No 1mg mg tablet 10-16 00:00: 00 Trintellix 2021-0 No 1mg 10 mg 7-08 tablet 00:00: 00 Trintellix 2021-0 No 1mg 10 mg 7-08 tablet 00:00: 00 Trintellix 2021-0 No 1mg 10 mg 5-27 tablet 00:00: 00 Trintellix 2021-0 No 1mg 10 mg 5-27 tablet 00:00: 00 ProAir HFA 1-0 No 12mcg/a 90 5-24 ctuatio mcg/actuati 00:00: n on aerosol 00 inhaler Trintellix 1-0 No 1mg 10 mg 5-24 tablet 00:00: 00 clopidogrel 2021-0 No 1mg 75 mg 5-24 tablet 00:00: 00 atorvastati 2021-0 No 2mg n 20 mg 5-24 tablet 00:00: 00 amlodipine 2021-0 No 1mg 5 mg tablet 5-24 00:00: 00 losartan 50 2021-0 No 1mg mg tablet 5-24 00:00: 00 clindamycin 2021-0 No 1mg HCl 300 mg 5-24 capsule 00:00: 00 ProAir HFA 2021-0 No 12mcg/a 90 5-24 ctuatio mcg/actuati 00:00: n on aerosol 00 inhaler Trintellix 2021-0 No 1mg 10 mg 5-24 tablet 00:00: 00 clopidogrel 2021-0 No 1mg 75 mg 5-24 tablet 00:00: 00 atorvastati 2021-0 No 2mg n 20 mg 5-24 tablet 00:00: 00 amlodipine 1-0 No 1mg 5 mg tablet 5-24 00:00: 00 losartan 50 1-0 No 1mg mg tablet -24 00:00: 00 clindamycin 1-0 No 1mg HCl 300 mg 5-24 capsule 00:00: 00 ProAir HFA 2020-0 No 12mcg/a 90 5-05 ctuatio mcg/actuati 00:00: n on aerosol 00 inhaler atorvastati 2020-0 No 2mg n 20 mg 5-05 tablet 00:00: 00 clopidogrel 1-0 No 1mg 75 mg 5-05 tablet 00:00: 00 losartan 50 1-0 No 1mg mg tablet 5-05 00:00: 00 amlodipine 1-0 No 1mg 5 mg tablet 5-05 00:00: 00 ProAir HFA 2020-0 No 12mcg/a 90 5-05 ctuatio mcg/actuati 00:00: n on aerosol 00 inhaler atorvastati 2020-0 No 2mg n 20 mg 5-05 tablet 00:00: 00 clopidogrel 1-0 No 1mg 75 mg 5-05 tablet 00:00: 00 losartan 50 1-0 No 1mg mg tablet 5-05 00:00: 00 amlodipine 1-0 No 1mg 5 mg tablet 5-05 00:00: 00 vitamin B12 1-0 No 1mcg 500 4-29 mcg-folic 00:00: acid 400 00 mcg tablet Vitamin D3 2020-0 No 1(4,000 100 mcg 4-29 unit) (4,000 00:00: unit) 00 capsule vitamin B12 1-0 No 1mcg 500 4-29 mcg-folic 00:00: acid 400 00 mcg tablet Vitamin D3 1-0 No 1(4,000 100 mcg 4-29 unit) (4,000 00:00: unit) 00 capsule ProAir HFA 2020-0 No 12mcg/a 90 4-09 ctuatio mcg/actuati 00:00: n on aerosol 00 inhaler ProAir HFA 2020-0 No 12mcg/a 90 4-09 ctuatio mcg/actuati 00:00: n on aerosol 00 inhaler ProAir HFA 2020-0 No 12mcg/a 90 3-04 ctuatio mcg/actuati 00:00: n on aerosol 00 inhaler triamcinolo 1-0 No 1% ne 3-04 acetonide 00:00: 0.5 % 00 topical cream ProAir HFA 1-0 No 12mcg/a 90 3-04 ctuatio mcg/actuati 00:00: n on aerosol 00 inhaler triamcinolo 1-0 No 1% ne 3-04 acetonide 00:00: 0.5 % 00 topical cream aspirin 81 2021-0 No 1mg mg 2-25 tablet,jose 00:00: yed release 00 clopidogrel 2021-0 No 1mg 75 mg 2-25 tablet 00:00: 00 aspirin 81 2021-0 No 1mg mg 2-25 tablet,jose 00:00: yed release 00 clopidogrel 2021-0 No 1mg 75 mg 2-25 tablet 00:00: 00 atorvastati 2021-0 No 2mg n 20 mg 2-25 tablet 00:00: 00 clopidogrel 2021-0 No 1mg 75 mg 2-25 tablet 00:00: 00 atorvastati 2021-0 No 2mg n 20 mg 2-25 tablet 00:00: 00 amlodipine 2021-0 No 1mg 5 mg tablet 2-25 00:00: 00 amlodipine 2021-0 No 1mg 5 mg tablet 2-25 00:00: 00 atorvastati 2021-0 No 2mg n 20 mg 2-25 tablet 00:00: 00 clopidogrel 2021-0 No 1mg 75 mg 2-25 tablet 00:00: 00 atorvastati 2021-0 No 2mg n 20 mg 2-25 tablet 00:00: 00 amlodipine 2021-0 No 1mg 5 mg tablet 2-25 00:00: 00 amlodipine 2021-0 No 1mg 5 mg tablet 2-25 00:00: 00 ProAir HFA 1-0 No 12mcg/a 90 1-26 ctuatio mcg/actuati 00:00: n on aerosol 00 inhaler ProAir HFA 1-0 No 12mcg/a 90 1-26 ctuatio mcg/actuati 00:00: n on aerosol 00 inhaler rosuvastati 1-0 No 1mg n 10 mg 1-13 tablet 00:00: 00 rosuvastati 2020-0 No 1mg n 10 mg 1-13 tablet 00:00: 00 amlodipine 2020-0 No 1mg 5 mg tablet 1-12 00:00: 00 losartan 50 2020-0 No 1mg mg tablet 1-12 00:00: 00 clindamycin 2020-0 No 1mg HCl 300 mg 1-12 capsule 00:00: 00 amlodipine 2020-0 No 1mg 5 mg tablet 1-12 00:00: 00 losartan 50 2020-0 No 1mg mg tablet 1-12 00:00: 00 clindamycin 2020-0 No 1mg HCl 300 mg 1-12 capsule 00:00: 00 ProAir HFA 2019-1 No 12mcg/a 90 2-21 ctuatio mcg/actuati 00:00: n on aerosol 00 inhaler amlodipine 2019-1 No 1mg 2.5 mg 2-21 tablet 00:00: 00 losartan 50 2019-1 No 1mg mg tablet 2-21 00:00: 00 ProAir HFA 2019-1 No 12mcg/a 90 2-21 ctuatio mcg/actuati 00:00: n on aerosol 00 inhaler amlodipine 2019-1 No 1mg 2.5 mg 2-21 tablet 00:00: 00 losartan 50 2019-1 No 1mg mg tablet 2-21 00:00: 00 ProAir HFA 2019-1 No 12mcg/a 90 1-23 ctuatio mcg/actuati 00:00: n on aerosol 00 inhaler amlodipine 2019-1 No 1mg 2.5 mg 1-23 tablet 00:00: 00 losartan 50 2019-1 No 1mg mg tablet 1-23 00:00: 00 ProAir HFA 2019-1 No 12mcg/a 90 1-23 ctuatio mcg/actuati 00:00: n on aerosol 00 inhaler amlodipine 2019-1 No 1mg 2.5 mg 1-23 tablet 00:00: 00 losartan 50 2019-1 No 1mg mg tablet 1-23 00:00: 00 amlodipine 2020-1 No 1mg 2.5 mg 0-20 tablet 00:00: 00 losartan 50 2019-1 No 1mg mg tablet 0-20 00:00: 00 losartan 50 2019-1 No 1mg mg tablet 0-20 00:00: 00 amlodipine 2019- No 1mg 2.5 mg 0-20 tablet 00:00: 00 amlodipine 2019- No 1mg 2.5 mg 0-20 tablet 00:00: 00 losartan 50 2019-03 No 1mg mg tablet 0-20 00:00: 00 losartan 50 2019-03 No 1mg mg tablet 0-20 00:00: 00 amlodipine 2019- No 1mg 2.5 mg 0-20 tablet 00:00: 00 ProAir HFA 2019-03 No 12mcg/a 90 0-08 ctuatio mcg/actuati 00:00: n on aerosol 00 inhaler lisinopril 2019-03 No 1mg 10 mg 0-08 tablet 00:00: 00 losartan 50 2019- No 1mg mg tablet 0-08 00:00: 00 clonidine 2019- No 1mg HCl 0.1 mg 0-08 tablet 00:00: 00 meclizine 2019- No 1mg 25 mg 0-08 tablet 00:00: 00 ProAir HFA 2019-03 No 12mcg/a 90 0-08 ctuatio mcg/actuati 00:00: n on aerosol 00 inhaler lisinopril 2019-03 No 1mg 10 mg 0-08 tablet 00:00: 00 losartan 50 2019-03 No 1mg mg tablet 0-08 00:00: 00 clonidine 2019- No 1mg HCl 0.1 mg 0-08 tablet 00:00: 00 meclizine 2019-03 No 1mg 25 mg 0-08 tablet 00:00: 00 Immunizations Ordered Immunization Filled Immunization Date Status Commen ts Source Name Name Zack UPID-19 2020-06-19 Completed Vaccine 00:00:00 Zack COVID-19 2020-06-19 Completed Vaccine 00:00:00 Alfredoa COVID-19 2020-05-19 Completed Vaccine 00:00:00 Zack COVID-19 2020-05-19 Completed Vaccine 00:00:00 Vital Signs Vital Name Observation Time Observation Value Comments Source BP Systolic 2021-09-19 15:44:00 148 mm[Hg] BP Diastolic 2021-09-19 15:44:00 78 mm[Hg] Weight Measured 2021-09-19 15:44:00 162.00 pounds Height Measured 2021-09-19 15:44:00 64.80 inches Body Temperature 2021-09-19 15:44:00 97.80 degrees Heart Rate 2021-09-19 15:44:00 79.00 /min Respiratory Rate 2021-09-19 15:44:00 18.00 /min BP Systolic 2021-09-18 17:08:00 130 mm[Hg] BP Diastolic 2021-09-18 17:08:00 72 mm[Hg] Weight Measured 2021-09-18 17:08:00 161.40 pounds Height Measured 2021-09-18 17:08:00 64.80 inches Body Temperature 2021-09-18 17:08:00 98.10 degrees Heart Rate 2021-09-18 17:08:00 81.00 /min Respiratory Rate 2021-09-18 17:08:00 16.00 /min BP Systolic 2021-08-22 17:24:00 132 mm[Hg] BP Diastolic 2021-08-22 17:24:00 71 mm[Hg] Weight Measured 2021-08-22 17:24:00 159.20 pounds Height Measured 2021-08-22 17:24:00 64.80 inches Body Temperature 2021-08-22 17:24:00 98.20 degrees Heart Rate 2021-08-22 17:24:00 74.00 /min Respiratory Rate 2021-08-22 17:24:00 18.00 /min BP Systolic 2021-07-31 16:06:00 161 mm[Hg] BP Diastolic 2021-07-31 16:06:00 95 mm[Hg] Weight Measured 2021-07-31 16:06:00 156.60 pounds Height Measured 2021-07-31 16:06:00 64.80 inches Body Temperature 2021-07-31 16:06:00 98.30 degrees Heart Rate 2021-07-31 16:06:00 119.00 /min Respiratory Rate 2021-07-31 16:06:00 19.00 /min BP Systolic 2021-05-01 16:15:00 152 mm[Hg] BP Diastolic 2021-05-01 16:15:00 82 mm[Hg] Weight Measured 2021-05-01 16:15:00 154.80 pounds Height Measured 2021-05-01 16:15:00 64.80 inches Body Temperature 2021-05-01 16:15:00 98.30 degrees Heart Rate 2021-05-01 16:15:00 84.00 /min Respiratory Rate 2021-05-01 16:15:00 16.00 /min BP Systolic 2021-02-19 14:39:00 145 mm[Hg] BP Diastolic 2021-02-19 14:39:00 84 mm[Hg] Weight Measured 2021-02-19 14:39:00 153.40 pounds Height Measured 2021-02-19 14:39:00 64.80 inches Body Temperature 2021-02-19 14:39:00 98.00 degrees Heart Rate 2021-02-19 14:39:00 91.00 /min Respiratory Rate 2021-02-19 14:39:00 BP Systolic 2021-01-09 14:51:00 173 mm[Hg] BP Diastolic 2021-01-09 14:51:00 91 mm[Hg] Weight Measured 2021-01-09 14:51:00 154.20 pounds Height Measured 2021-01-09 14:51:00 64.80 inches Body Temperature 2021-01-09 14:51:00 98.40 degrees Heart Rate 2021-01-09 14:51:00 87.00 /min Respiratory Rate 2021-01-09 14:51:00 18.00 /min BP Systolic 2020-11-06 15:06:00 129 mm[Hg] BP Diastolic 2020-11-06 15:06:00 69 mm[Hg] Weight Measured 2020-11-06 15:06:00 152.80 pounds Height Measured 2020-11-06 15:06:00 64.80 inches Body Temperature 2020-11-06 15:06:00 98.10 degrees Heart Rate 2020-11-06 15:06:00 92.00 /min Respiratory Rate 2020-11-06 15:06:00 16.00 /min BP Systolic 2020-10-02 15:50:00 141 mm[Hg] BP Diastolic 2020-10-02 15:50:00 75 mm[Hg] Weight Measured 2020-10-02 15:50:00 154.20 pounds Height Measured 2020-10-02 15:50:00 64.80 inches Body Temperature 2020-10-02 15:50:00 97.80 degrees Heart Rate 2020-10-02 15:50:00 96.00 /min Respiratory Rate 2020-10-02 15:50:00 BP Systolic 2020-08-06 14:25:00 133 mm[Hg] BP Diastolic 2020-08-06 14:25:00 66 mm[Hg] Weight Measured 2020-08-06 14:25:00 149.80 pounds Height Measured 2020-08-06 14:25:00 64.80 inches Body Temperature 2020-08-06 14:25:00 98.70 degrees Heart Rate 2020-08-06 14:25:00 99.00 /min Respiratory Rate 2020-08-06 14:25:00 18.00 /min Procedures This patient has no known procedures. Plan of Care Planned Activity Planned Date Details Comments Source Goal Plan of Care Note [code = 02626-2] Goal Plan of Care Note [code = 72492-2] Goal Plan of Care Note [code = 43274-2] Goal Plan of Care Note [code = 92889-7] Goal Plan of Care Note [code = 63573-1] Goal Plan of Care Note [code = 38216-9] Goal Plan of Care Note [code = 92292-7] Goal Plan of Care Note [code = 38164-6] Goal Plan of Care Note [code = 34068-5] Goal Plan of Care Note [code = 69369-1] Goal Plan of Care Note [code = 03280-4] Goal Plan of Care Note [code = 28845-2] Goal Plan of Care Note [code = 05952-9] Goal Plan of Care Note [code = 82157-0] Goal Plan of Care Note [code = 55970-4] Goal Plan of Care Note [code = 44971-1] Goal Plan of Care Note [code = 12733-4] Goal Plan of Care Note [code = 17144-9] Goal Plan of Care Note [code = 10994-9] Goal Plan of Care Note [code = 08936-6] Goal Plan of Care Note [code = 11807-9] Goal Plan of Care Note [code = 91830-6] Goal Plan of Care Note [code = 80114-5] Goal Plan of Care Note [code = 74038-7] Goal Plan of Care Note [code = 51257-8] Goal Plan of Care Note [code = 92898-8] Goal Plan of Care Note [code = 26831-5] Goal Plan of Care Note [code = 95750-2] Goal Plan of Care Note [code = 91080-8] Goal Plan of Care Note [code = 41513-5] Goal Plan of Care Note [code = 62519-3] Goal Plan of Care Note [code = 25433-2] Goal Plan of Care Note [code = 37861-6] Goal Plan of Care Note [code = 74860-6] Goal Plan of Care Note [code = 93122-5] Goal Plan of Care Note [code = 17719-6] Goal Plan of Care Note [code = 71828-3] Goal Plan of Care Note [code = 76670-6] Goal Plan of Care Note [code = 45500-8] Goal Plan of Care Note [code = 87547-3] Goal Plan of Care Note [code = 89545-4] Goal Plan of Care Note [code = 88667-9] Goal Plan of Care Note [code = 13205-3] Goal Plan of Care Note [code = 67107-2] Goal Plan of Care Note [code = 16429-8] Goal Plan of Care Note [code = 83672-1] Goal Plan of Care Note [code = 72758-3] Goal Plan of Care Note [code = 33787-6] Goal Plan of Care Note [code = 99632-7] Goal Plan of Care Note [code = 01784-4] Goal Plan of Care Note [code = 92400-2] Goal Plan of Care Note [code = 70442-3] Goal Plan of Care Note [code = 57442-1] Goal Plan of Care Note [code = 50611-0] Goal Plan of Care Note [code = 58410-3] Goal Plan of Care Note [code = 23969-7] Goal Plan of Care Note [code = 09106-3] Goal Plan of Care Note [code = 27632-6] Goal Plan of Care Note [code = 31425-2] Goal Plan of Care Note [code = 21219-3] Goal Plan of Care Note [code = 62385-2] Goal Plan of Care Note [code = 31206-2] Goal Plan of Care Note [code = 27479-5] Goal Plan of Care Note [code = 84536-7] Encounters Start End Encounter Admission Attending Care Care Encounter Source Date/Time Date/Time Type Type Clinicians Facility Department ID 2021-09-19 2021-09-19 Outpatient [id number] 00:00:00 00:00:00 Visit [id number] 2021-09-18 2021-09-18 Outpatient [id number] 00:00:00 00:00:00 Visit [id number] Results Test Description Test Time Test Comments Results Result Comments Source CT/NG, NAAT, URINE 2021-09-23 19:10:56 Test Item Value Reference Range Interpretation Comme nts GONORRHEA, NAAT NEGATIVE NEGATIVE IMPORTA NT NOTICE: SEE ANNOUNCEMENT AT (test code = [email or web address] Note: 05289) Assay methodolo gy is nucleic acid amplification by transcriptio n mediated amplification (TMA) utilizing the A ptima Combo 2 Assay. CHLAMYDIA, NAAT NEGATIVE NEGATIVE IMPORTA NT NOTICE: SEE ANNOUNCEMENT AT (test code = [email or web address] Note: 29639) Assay methodolo gy is nucleic acid amplification by transcriptio n mediated amplification (TMA) utilizing the A ptima Combo 2 Assay. TRICHOMONAS, NAAT, [id number] 18:03:06 Test Item Value Reference Range Interpretation Comments TRICHOMONAS, NAAT NEGATIVE NEGATIVE IMPOR TANT NOTICE: SEE (test code = [place] [address]) [email or web address] Note: Assay methodology is nucleic acid amplification b y supervisor toy assembly m ediated amplification ( TMA) and Hybridization P rotection Assay (HPA) uti lizing the GenProbe APTIMA platform. A negative result does not exclude low lev el infection, specimensamplin g error, or collection rd scott [id number] 04:27:22 Test Item Value Reference Range Interpretation Comments RPR RESULT (test NON-REACTIVE NON-REACTIVE code = 3501) RPR TITER (test NOT INDIC. NOT INDIC. UNLESS OTHE RWISE code = 3500) TITER INDICATED, ALL TESTING PERFORMED [facility] PATHOLOGY [facility], [facility]. [address] [place] [address] 4 LABORATORY DIRE CTOR: CARLOS MANUEL SMITH M.D. CLIA NUMBER [id number] [facility] [place] [id number] HEMOGLOBIN [id number] 00:00:00 Test Item Value Reference Range Interpretation Comments HEMOGLOBIN A1c (test code = 35934) 6.1 % HEMOGLOBIN [id number] 00:00:00 Test Item Value Reference Range Interpretation Comments HEMOGLOBIN A1c (test code = 32588) 6.1 % LIPID [id number] 00:00:00 Test Item Value Reference Range Interpretation Comments CHOLESTEROL (test code = 2210) 221 MG/DL TRIGLYCERIDES (test code = 2232) 240 MG/DL HDL CHOLESTEROL (test code = 2220) 43 MG/DL CALC LDL CHOL (test code = 2237) 139 MG/DL RISK RATIO LDL/HDL (test code = 3.23 RATIO 2238) HEMOGLOBIN [id number] 00:00:00 Test Item Value Reference Range Interpretation Comments HEMOGLOBIN A1c (test code = 17482) 6.1 % HEMOGLOBIN [id number] 00:00:00 Test Item Value Reference Range Interpretation Comments HEMOGLOBIN A1c (test code = 56942) 6.1 % LIPID [id number] 00:00:00 Test Item Value Reference Range Interpretation Comments CHOLESTEROL (test code = 2210) 221 MG/DL TRIGLYCERIDES (test code = 2232) 240 MG/DL HDL CHOLESTEROL (test code = 2220) 43 MG/DL CALC LDL CHOL (test code = 2237) 139 MG/DL RISK RATIO LDL/HDL (test code = 3.23 RATIO 2238) CBC W/AUTO [id number] 00:00:00 Test Item Value Reference Range Interpretation Comments WBC (test code = 1001) 7.1 K/UL RBC (test code = 1002) 4.27 M/UL HEMOGLOBIN (test code = 1003) 13.4 G/DL HEMATOCRIT (test code = 1004) 39.3 % MCV (test code = 1005) 92.0 fL MCH (test code = 1006) 31.4 PG MCHC (test code = 1007) 34.1 G/DL RDW (test code = 1038) 13.3 % NEUTROPHILS (test code = 1008) 62.6 % LYMPHOCYTES (test code = 1010) 24.8 % MONOCYTES (test code = 1011) 9.0 % EOSINOPHILS (test code = 1012) 2.7 % BASOPHILS (test code = 1013) 0.6 % IMMATURE GRANULOCYTES (test 0.3 % code = 1036) NUCLEATED RBCS (test code = 0.0 /100WBC'S 1065) PLATELET COUNT (test code = 284 K/UL 1015) ABSOLUTE NEUTROPHILS (test code 4.45 K/UL = 1066) ABSOLUTE LYMPHOCYTES (test code 1.76 K/UL = 1067) ABSOLUTE MONOCYTES (test code = 0.64 K/UL 1068) ABSOLUTE EOSINOPHILS (test code 0.19 K/UL = 1040) ABSOLUTE BASOPHILS (test code = 0.04 K/UL 1069) ABS IMMATURE GRANULOCYTES (test 0.02 K/UL code = 1020) ABS NUCLEATED RBCS (test code = 0.00 K/UL 32088) CBC W/AUTO [id number] 00:00:00 Test Item Value Reference Range Interpretation Comments WBC (test code = 1001) 7.1 K/UL RBC (test code = 1002) 4.27 M/UL HEMOGLOBIN (test code = 1003) 13.4 G/DL HEMATOCRIT (test code = 1004) 39.3 % MCV (test code = 1005) 92.0 fL MCH (test code = 1006) 31.4 PG MCHC (test code = 1007) 34.1 G/DL RDW (test code = 1038) 13.3 % NEUTROPHILS (test code = 1008) 62.6 % LYMPHOCYTES (test code = 1010) 24.8 % MONOCYTES (test code = 1011) 9.0 % EOSINOPHILS (test code = 1012) 2.7 % BASOPHILS (test code = 1013) 0.6 % IMMATURE GRANULOCYTES (test 0.3 % code = 1036) NUCLEATED RBCS (test code = 0.0 /100WBC'S 1065) PLATELET COUNT (test code = 284 K/UL 1015) ABSOLUTE NEUTROPHILS (test code 4.45 K/UL = 1066) ABSOLUTE LYMPHOCYTES (test code 1.76 K/UL = 1067) ABSOLUTE MONOCYTES (test code = 0.64 K/UL 1068) ABSOLUTE EOSINOPHILS (test code 0.19 K/UL = 1040) ABSOLUTE BASOPHILS (test code = 0.04 K/UL 1069) ABS IMMATURE GRANULOCYTES (test 0.02 K/UL code = 1020) ABS NUCLEATED RBCS (test code = 0.00 K/UL 27985) [id number] 00:00:00 Test Item Value Reference Range Interpretation Comments TSH, THIRD GENERATION (test code 1.240 UIU/ML = 2821) [id number] 00:00:00 Test Item Value Reference Range Interpretation Comments TSH, THIRD GENERATION (test code 1.240 UIU/ML = 2821) VITAMIN [id number] 00:00:00 Test Item Value Reference Range Interpretation Comments VITAMIN B-12 (test code = 2840) >2000 PG/ML VITAMIN [id number] 00:00:00 Test Item Value Reference Range Interpretation Comments VITAMIN B-12 (test code = 2840) >2000 PG/ML VITAMIN D, 25 [id number] 00:00:00 Test Item Value Reference Range Interpretation Comments VITAMIN D, 25 OH (test code = 4958) 51 NG/ML CBC W/AUTO [id number] 00:00:00 Test Item Value Reference Range Interpretation Comments WBC (test code = 1001) 7.1 K/UL RBC (test code = 1002) 4.27 M/UL HEMOGLOBIN (test code = 1003) 13.4 G/DL HEMATOCRIT (test code = 1004) 39.3 % MCV (test code = 1005) 92.0 fL MCH (test code = 1006) 31.4 PG MCHC (test code = 1007) 34.1 G/DL RDW (test code = 1038) 13.3 % NEUTROPHILS (test code = 1008) 62.6 % LYMPHOCYTES (test code = 1010) 24.8 % MONOCYTES (test code = 1011) 9.0 % EOSINOPHILS (test code = 1012) 2.7 % BASOPHILS (test code = 1013) 0.6 % IMMATURE GRANULOCYTES (test 0.3 % code = 1036) NUCLEATED RBCS (test code = 0.0 /100WBC'S 1065) PLATELET COUNT (test code = 284 K/UL 1015) ABSOLUTE NEUTROPHILS (test code 4.45 K/UL = 1066) ABSOLUTE LYMPHOCYTES (test code 1.76 K/UL = 1067) ABSOLUTE MONOCYTES (test code = 0.64 K/UL 1068) ABSOLUTE EOSINOPHILS (test code 0.19 K/UL = 1040) ABSOLUTE BASOPHILS (test code = 0.04 K/UL 1069) ABS IMMATURE GRANULOCYTES (test 0.02 K/UL code = 1020) ABS NUCLEATED RBCS (test code = 0.00 K/UL 83795) CBC W/AUTO [id number] 00:00:00 Test Item Value Reference Range Interpretation Comments WBC (test code = 1001) 7.1 K/UL RBC (test code = 1002) 4.27 M/UL HEMOGLOBIN (test code = 1003) 13.4 G/DL HEMATOCRIT (test code = 1004) 39.3 % MCV (test code = 1005) 92.0 fL MCH (test code = 1006) 31.4 PG MCHC (test code = 1007) 34.1 G/DL RDW (test code = 1038) 13.3 % NEUTROPHILS (test code = 1008) 62.6 % LYMPHOCYTES (test code = 1010) 24.8 % MONOCYTES (test code = 1011) 9.0 % EOSINOPHILS (test code = 1012) 2.7 % BASOPHILS (test code = 1013) 0.6 % IMMATURE GRANULOCYTES (test 0.3 % code = 1036) NUCLEATED RBCS (test code = 0.0 /100WBC'S 1065) PLATELET COUNT (test code = 284 K/UL 1015) ABSOLUTE NEUTROPHILS (test code 4.45 K/UL = 1066) ABSOLUTE LYMPHOCYTES (test code 1.76 K/UL = 1067) ABSOLUTE MONOCYTES (test code = 0.64 K/UL 1068) ABSOLUTE EOSINOPHILS (test code 0.19 K/UL = 1040) ABSOLUTE BASOPHILS (test code = 0.04 K/UL 1069) ABS IMMATURE GRANULOCYTES (test 0.02 K/UL code = 1020) ABS NUCLEATED RBCS (test code = 0.00 K/UL 14830) [id number] 00:00:00 Test Item Value Reference Range Interpretation Comments TSH, THIRD GENERATION (test code 1.240 UIU/ML = 2821) [id number] 00:00:00 Test Item Value Reference Range Interpretation Comments TSH, THIRD GENERATION (test code 1.240 UIU/ML = 2821) VITAMIN [id number] 00:00:00 Test Item Value Reference Range Interpretation Comments VITAMIN B-12 (test code = 2840) >2000 PG/ML VITAMIN [id number] 00:00:00 Test Item Value Reference Range Interpretation Comments VITAMIN B-12 (test code = 2840) >2000 PG/ML VITAMIN D, 25 [id number] 00:00:00 Test Item Value Reference Range Interpretation Comments VITAMIN D, 25 OH (test code = 4958) 51 NG/ML CULTURE, [id number] 00:00:00 Test Item Value Reference Range Interpretation Comments CULTURE, URINE (test SPECIMEN NUMBER: code = 60271) [id number] CULTURE, [id number] 00:00:00 Test Item Value Reference Range Interpretation Comments CULTURE, URINE (test SPECIMEN NUMBER: code = 91565) [id number] COMPREHENSIVE METABOLIC [id number] 00:00:00 Test Item Value Reference Range Interpretation Comments GLUCOSE (test code = 2217) 123 MG/DL BUN (test code = 2208) 19 MG/DL CREATININE (test code = 2214) 0.86 MG/DL eGFR AMER. (test code 86 ML/MIN/1.73 = 75324) eGFR NON- AMER. (test 74 ML/MIN/1.73 code = 66526) CALC BUN/CREAT (test code = 22 RATIO 2235) SODIUM (test code = 2231) 142 MEQ/L POTASSIUM (test code = 2228) 3.9 MEQ/L CHLORIDE (test code = 2215) 102 MEQ/L CARBON DIOXIDE (test code = 28 MEQ/L 2205) CALCIUM (test code = 2209) 10.5 MG/DL PROTEIN, TOTAL (test code = 7.7 G/DL 2228) ALBUMIN (test code = 2201) 5.2 G/DL CALC GLOBULIN (test code = 2.5 G/DL 2239) CALC A/G RATIO (test code = 2.1 RATIO 2234) BILIRUBIN, TOTAL (test code = 0.4 MG/DL 2206) ALKALINE PHOSPHATASE (test 108 U/L code = 2204) AST (test code = 2218) 21 U/L ALT (test code = 2219) 34 U/L LIPID [id number] 00:00:00 Test Item Value Reference Range Interpretation Comments CHOLESTEROL (test code = 2210) 224 MG/DL TRIGLYCERIDES (test code = 2232) 228 MG/DL HDL CHOLESTEROL (test code = 2220) 46 MG/DL CALC LDL CHOL (test code = 2237) 141 MG/DL RISK RATIO LDL/HDL (test code = 3.07 RATIO 2238) COMPREHENSIVE METABOLIC [id number] 00:00:00 Test Item Value Reference Range Interpretation Comments GLUCOSE (test code = 2217) 123 MG/DL BUN (test code = 2208) 19 MG/DL CREATININE (test code = 2214) 0.86 MG/DL eGFR AMER. (test code 86 ML/MIN/1.73 = 28857) eGFR NON- AMER. (test 74 ML/MIN/1.73 code = 48217) CALC BUN/CREAT (test code = 22 RATIO 2235) SODIUM (test code = 2231) 142 MEQ/L POTASSIUM (test code = 2228) 3.9 MEQ/L CHLORIDE (test code = 2215) 102 MEQ/L CARBON DIOXIDE (test code = 28 MEQ/L 2205) CALCIUM (test code = 2209) 10.5 MG/DL PROTEIN, TOTAL (test code = 7.7 G/DL 2228) ALBUMIN (test code = 2201) 5.2 G/DL CALC GLOBULIN (test code = 2.5 G/DL 2240) CALC A/G RATIO (test code = 2.1 RATIO 2234) BILIRUBIN, TOTAL (test code = 0.4 MG/DL 2206) ALKALINE PHOSPHATASE (test 108 U/L code = 2204) AST (test code = 2218) 21 U/L ALT (test code = 2219) 34 U/L LIPID [id number] 00:00:00 Test Item Value Reference Range Interpretation Comments CHOLESTEROL (test code = 2210) 224 MG/DL TRIGLYCERIDES (test code = 2232) 228 MG/DL HDL CHOLESTEROL (test code = 2220) 46 MG/DL CALC LDL CHOL (test code = 2237) 141 MG/DL RISK RATIO LDL/HDL (test code = 3.07 RATIO 2238) COMPREHENSIVE METABOLIC PANEL [ADDED]2020-03-28 00:00:00 Test Item Value Reference Range Interpretation Comments GLUCOSE (test code = 2217) 109 MG/DL BUN (test code = 2208) 12 MG/DL CREATININE (test code = 2214) 0.75 MG/DL eGFR AMER. (test code 102 ML/MIN/1.73 = 23413) eGFR NON- AMER. (test 88 ML/MIN/1.73 code = 90182) CALC BUN/CREAT (test code = 16 RATIO 2235) SODIUM (test code = 2231) 140 MEQ/L POTASSIUM (test code = 2228) 4.3 MEQ/L CHLORIDE (test code = 2215) 102 MEQ/L CARBON DIOXIDE (test code = 28 MEQ/L 2205) CALCIUM (test code = 2209) 9.8 MG/DL PROTEIN, TOTAL (test code = 7.8 G/DL 2228) ALBUMIN (test code = 2201) 5.1 G/DL CALC GLOBULIN (test code = 2.7 G/DL 224) CALC A/G RATIO (test code = 1.9 RATIO 2234) BILIRUBIN, TOTAL (test code = 0.5 MG/DL 2206) ALKALINE PHOSPHATASE (test 94 U/L code = 2204) AST (test code = 2218) 37 U/L ALT (test code = 2219) 67 U/L LIPID PANEL [ADDED]2020-03-28 00:00:00 Test Item Value Reference Range Interpretation Comments CHOLESTEROL (test code = 2210) 319 MG/DL TRIGLYCERIDES (test code = 2232) 168 MG/DL HDL CHOLESTEROL (test code = 2220) 58 MG/DL CALC LDL CHOL (test code = 2237) 227 MG/DL RISK RATIO LDL/HDL (test code = 3.91 RATIO 2238) COMPREHENSIVE METABOLIC PANEL [ADDED]2020-03-28 00:00:00 Test Item Value Reference Range Interpretation Comments GLUCOSE (test code = 2217) 109 MG/DL BUN (test code = 2208) 12 MG/DL CREATININE (test code = 2214) 0.75 MG/DL eGFR AMER. (test code 102 ML/MIN/1.73 = 38674) eGFR NON- AMER. (test 88 ML/MIN/1.73 code = 69571) CALC BUN/CREAT (test code = 16 RATIO 2235) SODIUM (test code = 2231) 140 MEQ/L POTASSIUM (test code = 2228) 4.3 MEQ/L CHLORIDE (test code = 2215) 102 MEQ/L CARBON DIOXIDE (test code = 28 MEQ/L 2205) CALCIUM (test code = 220) 9.8 MG/DL PROTEIN, TOTAL (test code = 7.8 G/DL 2228) ALBUMIN (test code = 220) 5.1 G/DL CALC GLOBULIN (test code = 2.7 G/DL 2239) CALC A/G RATIO (test code = 1.9 RATIO 2233) BILIRUBIN, TOTAL (test code = 0.5 MG/DL 2206) ALKALINE PHOSPHATASE (test 94 U/L code = 2204) AST (test code = 2218) 37 U/L ALT (test code = 2219) 67 U/L LIPID PANEL [ADDED]2020-03-28 00:00:00 Test Item Value Reference Range Interpretation Comments CHOLESTEROL (test code = 2210) 319 MG/DL TRIGLYCERIDES (test code = 2232) 168 MG/DL HDL CHOLESTEROL (test code = 2220) 58 MG/DL CALC LDL CHOL (test code = 2237) 227 MG/DL RISK RATIO LDL/HDL (test code = 3.91 RATIO 2238)
--- NOTE | 2021-10-15 11:34 | RAD REPORT ---
EXAM DESCRIPTION: CT - Abdomen Pelvis W Contrast - 10/15/2021 11:09 am CLINICAL HISTORY: Abdominal pain, acute, nonlocalized COMPARISON: No comparisons TECHNIQUE: Biphasic, helical CT imaging of the abdomen and pelvis was performed following 100 ml non -ionic IV contrast. No oral contrast administered. All CT scans are performed using dose optimization technique as appropriate and may include automated exposure control or mA/KV adjustment according to patient size. FINDINGS: No suspicious findings in the lung bases. The liver, spleen, and pancreas show no suspicious findings. Gallbladder and biliary tree are also wi thout suspicious finding. Small accessory splenic nodule is present. Symmetric renal function is seen with no hydronephrosis or suspicious renal mass. No pyelonephritis o r acute parenchymal process. Small renal cortical cysts are present. No adrenal abnormalities. Mostly contracted urinary bladder seen along the floor the pelvis. Normal for age sized uterus is pre sent containing a 3 centimeter partially calcified fibroid. Filling the central abdomen and upper pel vis there is a 13.8 cm AP x 15.0 cm TR cystic mass. No associated fat or calcification. Septations ar e seen along the right anterolateral aspect and posterior aspect. This is believed to be left ovarian in origin. In the right lower quadrant there is a 5.2 x 4.6 centimeter mass showing similar cystic c haracteristics. This is believed to be right ovarian in origin. There is a slightly lobulated contour along the medial inferior aspect of this mass. The smaller right ovarian origin mass does not have f at or calcium component. No dilated bowel loops or bowel wall thickening. No appendicitis. No free air, free fluid or inflamma tory stranding. No hernia or bulky lymphadenopathy. No omental thickening. No suspicious bony findings. IMPRESSION: Bilateral ovarian masses are present, 15 cm on the left and 5 cm on the right. Bilatera l cystadenoma is the favored diagnosis. Cystadenocarcinoma cannot be excluded given the left-side sep tations and right-side lobulated contour on the medial inferior aspect. Remainder the study, as detailed above, without acute or emergent finding.
[2021-10-15] MEDS ORDERED: ENOXAPARIN 80 MG/0.8 ML SQ ONE (12:30)
--- NOTE | 2021-10-15 12:56 | P.HP ---
Certification for Inpatient Patient admitted to: Observation With expected LOS: <2 Midnights Patient will require the following post-hospital care: None Practitioner: I am a practitioner with admitting privileges, knowledge of patient current condition, hospital course, and medical plan of care. Services: Services provided to patient in accordance with Admission requirements found in Title 42 Section 412.3 of the Code of Federal Regulations Patient History Date of Service: 10/15/21 History of Present Illness: Mr. Natacha Villalba is a pleasant 61-year-old female who has a past medical history of prior cerebrovascular accident (April 2020), hypertension, hyperlipidemia, and tobacco use disorder who presents to the [facility] Emergency Department for mid epigastric/chest pain. She reports that, around 03:00 AM this morning while watching television, she developed midepigastric abdominal pain. She states that this pain radiated to her left chest. She states that the pain has been progressively worsening and has been constant. She describes it as burning/sharp in nature. She denies any obvious inciting or alleviating factors. She grades the pain a 2/10 in severity. She has taken 162 mg of aspirin prior to arrival. On review of systems, she denies any fevers, chills, headaches, dizziness, syncope, palpitations, shortness of breath, wheezing, cough, nausea/vomiting, diarrhea, constipation, hematochezia, melena, dysuria, hematuria, myalgia, or any other symptoms. She presented to the Emergency Department for further evaluation. Upon presentation, her vital signs were stable. Her laboratory studies were notable for a glucose of 120. EKG revealed normal sinus rhythm without STEMI criteria. Chest x-ray revealed, "no acute cardiopulmonary process. No significant change from comparison study." CT abdomen/pelvis, "bilateral ovarian masses are present, 15 cm on the left and 5 cm on the right. Bilateral cys tadenoma is the favored diagnosis. Cystadenocarcinoma cannot be excluded given the left-side septations and right-side lobulated contour on the medial inferior aspect." CT chest angiogram revealed, "no pulmonary emboli identified. No other significant or suspicious findings." Right upper abdominal ultrasound revealed, "two small gallbladder polyps are seen. No stones, sludge or acute gallbladder finding. No biliary tree abnormality." Cardiology was consulted in the Emergency Department, and recommendations are pending. In the Emergency Department, [text] was given [text]. [text] was admitted to the General Internal Medicine service for further evaluation. Home Medications: 1. Losartan 50 mg daily 2. Amlodipine 5 mg daily 3. Metoprolol unknown dose 4. Clopidogrel 75 mg daily 5. Fluoxetine 20 mg daily 6. Aspirin 81 mg daily 7. Atorvastatin unknown dose Allergies Penicillins Allergy (Verified 05/15/20 01:12) Unknown Home medications list reviewed: Yes Home Medications: Amlodipine [Norvasc*] 5 mg PO DAILY #30 tab 05/15/20 Aspirin [Aspirin EC 81 MG] 81 mg PO DAILY #90 tablet. 05/15/20 Atorvastatin Calcium [Lipitor] 80 mg PO DAILY #30 tablet 05/15/20 Clopidogrel Bisulfate [Plavix*] 75 mg PO DAILY #30 tablet 05/15/20 Folic Acid 1 mg PO DAILY #90 tablet 05/15/20 Losartan Potassium [Cozaar*] 50 mg PO DAILY #30 tablet 05/15/20 Nicotine [Nicoderm*] 21 mg TD DAILY #30 patch.td24 05/15/20 - Past Medical/Surgical History Diabetic: No -: HTN -: HLD -: CVA (April 2020) -: Tobacco Use Disorder -: Tubal Ligation Psychosocial/ Personal History: Patient unemployed, lives with her daughter - Family History Father -: Heart disease, Hypertension Mother -: Hypertension, Cancer Notes: parkinsons. kidney cancer Brother -: Diabetes Notes: parkinsons - Social History Smoking Status: Heavy Tobacco smoker (>10 cigarettes/day) Alcohol use: Yes CD- Drugs: No Caffeine use: No Review of Systems General: Unremarkable Eyes: Unremarkable ENT: Unremarkable Respiratory: Unremarkable Cardiovascular: Chest Pain Gastrointestinal: Abdominal Pain Genitourinary: Unremarkable Musculoskeletal: Unremarkable Integumentary: Unremarkable Neurological: Unremarkable Physical Examination - Vital Signs Temperature: 98.0 F Blood Pressure: 150/63 Pulse: 51 Respirations: 15 Pulse Ox (%): 97 (2 L) - Physical Exam General: Alert, In no apparent distress, Oriented x3 HEENT: Atraumatic, PERRLA, Mucous membr. moist/pink, EOMI, Sclerae nonicteric Neck: Supple, JVD not distended Respiratory: Clear to auscultation bilaterally, Normal air movement Cardiovascular: No edema, Regular rate/rhythm, Normal S1 S2, No gallops, No rubs, No murmurs Gastrointestinal: Normal bowel sounds, Soft and benign, Non-distended, No tenderness, No rebound, No guarding Musculoskeletal: No clubbing Integumentary: No rashes Neurological: Normal gait, Normal affect - Studies Laboratory Data (last 24 hrs) 10/15/21 10:00: PT 10.1, INR 0.92 10/15/21 10:00: WBC 6.3, Hgb 14.6, Hct 42.4, Plt Count 261 10/15/21 10:00: Sodium 139, Potassium 4.1, BUN 10, Creatinine 0.83, Glucose 120 H, Magnesium 2.3, Total Bilirubin 0.3, AST 17, ALT 36, Alkaline Phosphatase 131 H, Lipase 166 Assessment and Plan - Plan # Chest Pain, with multiple Cardiac Risk Factors # History of Cerebrovascular Accident (April 2020) # Hypertension # Hyperlipidemia Based on history and physical examination, cannot exclude ischemia as a possible etiology of her chest pain. - Evaluation thus far: - EKG: No obvious ST segment changes, trend - Serial troponin: 4.4 -> 4.7 - Ordered transthoracic echocardiogram - Chest x-ray = "no acute cardiopulmonary process. No significant change from comparison study." - CT chest angiogram revealed, "no pulmonary emboli identified. No other significant or suspicious findings." - Management plan: - Consult Cardiology and spoke with Dr. Hearn - recommendations appreciated - Plan for possible stress test tomorrow - S/P aspirin 324 mg PO x 1 in ED - Continue aspirin, losartan, clopidogrel, atorvastatin, amlodipine - Hold metoprolol given borderline bradycardia # Tobacco Use Disorder - Reports 45+ pack year smoking history - Extensive tobacco cessation counseling provided # Depression - Continue home fluoxetine # Bilateral Overian Masses # Two Small Gallbladder Polyps Noted on her radiographic studies. I am concerned that these findings may represent an underlying malignancy. Discussed this extensively with her and advised she follow-up with her PCP and ObGyn at discharge. She verbalized understanding. Lonny Cronin M.D. Discharge Plan: Home Plan to discharge in: 24 Hours - Advance Directives Does patient have a Living Will: No Does patient have a Durable POA for Healthcare: No - Code Status/Comfort Care Code Status Assessed: Yes Code Status: Full Code
--- NOTE | 2021-10-15 13:54 | RAD REPORT ---
EXAM DESCRIPTION: US - Abdomen Exam Limited - 10/15/2021 1:12 pm CLINICAL HISTORY: ABD PAIN COMPARISON: Abdomen Pelvis W Contrast dated 10/15/2021 FINDINGS: No mobile gallstones or measurable sludge. Two small echogenic foci 6 mm or less in size. No posterior acoustic shadowing seen. These are most likely small polyps. nonshadowing adherent galls tones are lesser likelihood. There is no wall thickening or pericholecystic fluid. No common duct stone or biliary tree dilatation identified. Partially imaged liver shows fatty infiltration. IMPRESSION: Two small gallbladder polyps are seen. No stones, sludge or acute gallbladder finding. No biliary tree abnormality.
--- NOTE | 2021-10-15 16:51 | CON ---
Date of Consultation: 10/15/2021 Reason For Consultation: Chest pain. History Of Present Illness: This is a 61-year-old female with. DICTATION ENDS HERE /KYLIE Voice ID: [id number] Report ID: [id number]
--- NOTE | 2021-10-15 16:51 | CON ---
Date of Consultation: 10/15/2021 Reason For Consultation: Chest pain. History Of Present Illness: This is a 61-year-old female with history of hypertension, history of CV A, dyslipidemia, who is actively smoker half to 1 pack per day, presented with chest pain, started in the epigastric area and radiated to the retrosternal area, was watching TV and it was an ache type. No nausea, vomiting, or diaphoresis. No radiation and she is currently chest pain free. Past Medical History: As outlined above in the HPI, severe hypertension, dyslipidemia. Medications: Refer to reconciliation sheet for detailed list. Allergies: NO KNOWN DRUG ALLERGIES. Family History: No premature coronary artery disease. Social History: She is an active smoker, half to 1 pack per day. Does not drink or use any drugs. Review of Systems: All systems reviewed and they were negative except what mentioned in HPI. Physical Examination: Vital Signs: Reviewed. Head and Neck: Pupils are equal, reactive to light. Intact eye movements. No JVD. No cervical lym phadenopathy. Neck is supple. Thyroid is not enlarged. Lungs: Clear to auscultation bilaterally. No rhonchi, wheezing, or crackles. No accessory muscle u se. Heart: Regular. No extra sounds. Abdomen: Soft, nontender. Bowel sounds positive. No organomegaly. No masses or hernia. No rigidi ty or rebound. Extremities: No clubbing or cyanosis. Intact pulses. Skin: No rash. Neurologic: Alert, awake. No acute focal deficits appreciated. Investigations: Troponin first set is negative. NT-proBNP is 158. Creatinine is 0.83. CTA for PE was negative and hemoglobin 14.6. Assessment And Recommendations: Chest pain, multiple risk factors. Observe overnight, trend 2 more sets of troponin, and also recommend exercise nuclear stress test and an echocardiogram. Please plac e the patient on aspirin and high-dose statin. Thank you for the consult. /AKANKSHAL Voice ID: [id number] Report ID: [id number]
[2021-10-15 16:55] VITALS: BMI 28.1
[2021-10-15 20:25] LABS: Urine Blood Trace-lysed (Negative); Urine Glucose Negative (Negative); Urine Protein Negative (Negative); Urine Specific Gravity 1.025 (1.005-1.030); Urine pH 5.5 (5.0-7.0)
[2021-10-15 20:36] LABS: Urine Bilirubin Negative (Negative); Urine Blood Trace-lysed (Negative); Urine Clarity Clear (Clear); Urine Color Yellow (Yellow); Urine Glucose Negative (Negative); Urine Protein Negative (Negative); Urine Urobilinogen 0.2 mg/dL (0.2-1.0); Urine pH 5.5 (5.0-7.0)
[2021-10-15 20:49] LABS: Urine Bacteria 20-50 /HPF (<20)
[2021-10-15 20:50] LABS: Urine Mucus 1+ /HPF (None Seen)
[2021-10-15] MEDS ORDERED: ATORVASTATIN 40 MG TAB PO SCH (21:00)
[2021-10-15] MEDS: MORPHINE 2 MG/ML SYR IV PRN (22:16)
[2021-10-16 04:54] VITALS: O2SAT 97
[2021-10-16] MEDS: MORPHINE 2 MG/ML SYR IV PRN ×2 (05:05→12:50)
[2021-10-16 05:54] LABS: Albumin 3.6 g/dL (3.4-5.0); Bilirubin Total 0.2 mg/dL (0.2-1.0); Magnesium 2.2 mg/dL (1.8-2.4); Phosphorus 2.8 mg/dL (2.5-4.9); Protein, Total 6.6 g/dL (6.4-8.2)
--- NOTE | 2021-10-16 07:22 | EKG ---
Test Date: 2021-10-15 Test Time: 09:53:48 [employer] Supervisor: REENA MEASUREMENT RESULTS: Intervals: Rate: 70 LA: 140 QRSD: 68 QT: 408 QTc: 440 Blackwell: P: 53 LA: 140 QRS: 59 T: 61 INTERPRETIVE STATEMENTS: Normal sinus rhythm Normal ECG Compared to ECG 05/14/2020 21:41:54 No significant changes Electronically Signed On 10-16-21 07:19:32 CDT by Kenneth Green
[2021-10-16] MEDS ORDERED: ENOXAPARIN 40 MG/0.4 ML SQ SCH (09:00)
[2021-10-16] MEDS ORDERED: FLUOXETINE 20 MG CAP PO SCH (09:00)
[2021-10-16] MEDS ORDERED: AMLODIPINE 5 MG TAB PO SCH (09:00)
[2021-10-16] MEDS ORDERED: LOSARTAN POTASSIUM 50 MG TABLET PO SCH (09:00)
[2021-10-16] MEDS ORDERED: ASPIRIN 81 MG CHEWABLE TABLET PO SCH (09:00)
--- NOTE | 2021-10-16 10:10 | ER ---
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 Coronavirus screen: At this time, the client does not indicate any symptoms associated with coronavirus-19. Ebola Screen: Patient negative for fever greater than or equal to 101.5 degrees Fahrenheit, and additional compatible Ebola Virus Disease symptoms Patient denies exposure to infectious person. Patient denies travel to an Ebola-affected area in the 21 days before illness onset. No symptoms or risks identified at this time. Initial Sepsis Screen: Does the patient meet any 2 criteria? No. Patient's initial sepsis screen is negative. Does the patient have a suspected source of infection? No. Patient's initial sepsis screen is negative. Risk Assessment: Do you want to hurt yourself or someone else? Patient reports no desire to harm self or others. Onset of symptoms was October 14, 2021. 09:42 Method Of Arrival: Ambulatory iw 09:42 Acuity: UGO 3 iw Triage Assessment: 09:45 General: Appears distressed, comfortable, obese. General: Behavior is calm, bp cooperative, appropriate for age. Pain: Complains of pain in chest. EENT: No deficits noted. Neuro: No deficits noted. Cardiovascular: No deficits noted. Respiratory: No deficits noted. GI: No signs and/or symptoms were reported involving the gastrointestinal system. : No signs and/or symptoms were reported regarding the genitourinary system. Derm: No deficits noted. Musculoskeletal: No deficits noted. Historical: - Allergies: 09:44 PENICILLINS; iw 09:44 Codeine; iw - Home Meds: 09:44 losartan 50 mg Oral tab 1 tab 2 times per day [Active]; Plavix 75 mg Oral tab 1 tab iw once daily [Active]; 10:00 atorvastatin 40 mg oral tab 1 tab once daily [Active]; amlodipine 5 mg oral tab 1 tab bp twice a day [Active]; Prozac 20 mg oral cap 1 cap nightly [Active]; aspirin 81 mg Oral tab 81 mg daily [Active]; metoprolol succinate 100 mg oral CSpX 1 cap once daily [Active]; - PMHx: 09:44 High Cholesterol; Hypertension; Tachycardia; iw - Immunization history:: Client reports receiving the 2nd dose of the Covid vaccine. - Social history:: Smoking status: Patient reports the use of cigarette tobacco products, smokes one pack cigarettes per day. - Family history:: not pertinent. Screenin:47 Abuse screen: Denies threats or abuse. Nutritional screening: No deficits noted. tw2 Tuberculosis screening: No symptoms or risk factors identified. Fall Risk None identified. Assessment: 09:56 General: Appears in no apparent distress. Behavior is calm, cooperative, appropriate tw2 for age. Pain: Pain does not radiate. Pain began last night while watching tv. Neuro: Level of Consciousness is awake, alert, obeys commands. Cardiovascular: Reports chest pain. Respiratory: Airway is patent Respiratory effort is even, unlabored, Respiratory pattern is regular, symmetrical. GI: No signs and/or symptoms were reported involving the gastrointestinal system. Abdomen is round non-distended. Musculoskeletal: Range of motion: intact in all extremities. 10:27 Reassessment: Patient appears in no apparent distress at this time. Patient and/or tw2 family updated on plan of care and expected duration. Pain level reassessed. Patient is alert, oriented x 3, equal unlabored respirations, skin warm/dry/pink. pt reports "i didn't sleep very good last night and havent since i lost my in july" Patient states feeling better. 10:55 Reassessment: PT TO CT. bp 11:35 Reassessment: Patient appears in no apparent distress at this time. Patient and/or tw2 family updated on plan of care and expected duration. Pain level reassessed. Patient is alert, oriented x 3, equal unlabored respirations, skin warm/dry/pink. 12:33 Reassessment: Patient appears in no apparent distress at this time. Patient and/or tw2 family updated on plan of care and expected duration. Pain level reassessed. Patient is alert, oriented x 3, equal unlabored respirations, skin warm/dry/pink. 13:01 Reassessment: Patient appears in no apparent distress at this time. Patient and/or tw2 family updated on plan of care and expected duration. Pain level reassessed. Patient is alert, oriented x 3, equal unlabored respirations, skin warm/dry/pink. Vital Signs: 09:44 BP 128 / 82; Pulse 73; Resp 16; Temp 98.0; Pulse Ox 96% on R/A; Weight 72.12 kg; Height iw 5 ft. 3 in. (160.02 cm); Pain 5/10; 10:26 Resp 18; Pulse Ox 88% on R/A; tw2 10:26 BP 129 / 71; Pulse 67; tw2 11:35 BP 145 / 74; Pulse 61; Resp 20; Pulse Ox 95% on 2 lpm NC; tw2 12:30 BP 136 / 71; Pulse 56; Resp 16; Pulse Ox 95% on 2 lpm NC; tw2 13:01 BP 142 / 65; Pulse 64; Resp 20; Pulse Ox 100% on 2 lpm NC; tw2 14:00 BP 152 / 68; Pulse 61; Resp 18; Pulse Ox 97% on 2 lpm NC; tw2 15:00 BP 135 / 74; Pulse 50; Resp 17; Pulse Ox 96% on 2 lpm NC; tw2 16:12 BP 150 / 63; Pulse 51; Resp 15; Pulse Ox 97% on 2 lpm NC; tw2 09:44 Body Mass Index 28.17 (72.12 kg, 160.02 cm) iw 10:26 pt placed on 2L nc at this time, provider notified. will continue to monitor tw2 ED Course: 09:36 Patient arrived in ED. mr 09:44 Triage completed. iw 09:44 Arm band placed on. iw 09:47 Elizabeth Campa RN is Primary Nurse. tw2 09:47 Patient maintains SpO2 saturation greater than 95% on room air. tw2 09:49 Vivek Graves MD is Attending Physician. komal 09:54 Inserted saline lock: 20 gauge in right antecubital area, using aseptic technique. tw2 ,using aseptic technique. Alanna CANO Blood collected. 09:56 Bed in low position. Call light in reach. Adult w/ patient. awake overnight monitor on. Pulse tw2 ox on. NIBP on. Warm blanket given. 10:16 XRAY Chest (1 view) In Process Unspecified. EDMS 11:10 CT Chest For PE Angio In Process Unspecified. EDMS 11:11 CT Abd/Pelvis - IV Contrast Only In Process Unspecified. EDMS 12:30 Lonny Cronin MD is Hospitalizing Provider. [facility] 16:30 No provider procedures requiring assistance completed. Patient admitted, IV remains in tw2 place. 19:01 Primary Nurse role handed off by Elizabeth Campa RN tw2 Administered Medications: 10:00 Drug: NS 0.9% 1000 ml Route: IV; Rate: 125 ml/hr; Site: right antecubital; bp 16:31 Follow up: IV Status: Infusion continued upon admission tw2 10:00 Drug: Aspirin 162 mg Route: PO; bp 10:53 Follow up: Response: No adverse reaction bp 10:00 Drug: morphine 2 mg Route: IVP; Infused Over: 4 mins; Site: right antecubital; bp 10:53 Follow up: Response: Pain is decreased bp 10:00 Drug: Zofran (Ondansetron) 4 mg Route: IVP; Site: right antecubital; bp 10:54 Follow up: Response: No adverse reaction bp 10:55 Drug: Pepcid (famotidine) 20 mg Route: IVP; Site: right antecubital; bp 12:26 Follow up: Response: No adverse reaction bp 12:26 Not Given (Physician Discretion; CANCELLED BY Elana): Lovenox (enoxaparin) 1 mg/kg bp Sub-Q once Medication: 09:56 VIS not applicable for this client. tw2 Outcome: 12:32 Decision to Hospitalize by Provider. komal 16:30 Admitted to ER Hold. Please see [facility] for further documentation. tw2 16:30 Condition: stable 16:30 Instructed on the need for admit. 21:42 Patient left the ED. kl Signatures: Dispatcher [employer] EDElma Bush RN RN kl Anderson, Corey, MD MD cha Rivera, Mary mr Williams, Irene, RN RN Elizabeth Campa RN RN tw2 Ze Lopez RN RN bp Corrections: (The following items were deleted from the chart) 13:51 09:44 Home Meds: atorvastatin Oral once daily; bp 13:51 09:44 Home Meds: amlodipine 2.5 mg tab 2 tabs once daily; bp 09:44 Home Meds: Prozac Oral 2 times per day; bp 09:45 Home Meds: Metoprolol Tartrate Oral; bp 10:00 Allergies: Aspirin; bp bp
--- NOTE | 2021-10-16 10:10 | EDPHYS ---
Physician Documentation [facility] Name: Natacha Villalba Age: 61 yrs Sex: Female : 1960 Arrival Date: 10/15/2021 Time: 09:36 Bed 5 Private MD: ED Physician Vivek Graves HPI: 10/15 12:15 This 61 yrs old Female presents to ER via Ambulatory with complaints of Chest komal Pain. 12:15 The patient or guardian reports chest pain that is located primarily in the substernal komal area, epigastric area. Onset: 1 day(s) ago. The pain radiates to left breast. Associated signs and symptoms: Pertinent positives: dizziness, shortness of breath. The chest pain is described as a pressure. Duration: The patient or guardian reports a single episode, that is now resolved, The patient or guardian reports multiple episodes, that have now resolved. Severity of pain: At its worst the pain was mild in the emergency department the pain is unchanged. The patient has not experienced similar symptoms in the past. Historical: - Allergies: 09:44 PENICILLINS; iw 09:44 Codeine; iw - Home Meds: 09:44 losartan 50 mg Oral tab 1 tab 2 times per day [Active]; Plavix 75 mg Oral tab 1 tab iw once daily [Active]; 10:00 atorvastatin 40 mg oral tab 1 tab once daily [Active]; amlodipine 5 mg oral tab 1 tab bp twice a day [Active]; Prozac 20 mg oral cap 1 cap nightly [Active]; aspirin 81 mg Oral tab 81 mg daily [Active]; metoprolol succinate 100 mg oral CSpX 1 cap once daily [Active]; - PMHx: 09:44 High Cholesterol; Hypertension; Tachycardia; iw - Immunization history:: Client reports receiving the 2nd dose of the Covid vaccine. - Social history:: Smoking status: Patient reports the use of cigarette tobacco products, smokes one pack cigarettes per day. - Family history:: not pertinent. ROS: 12:15 Constitutional: Negative for fever, chills, and weight loss, Eyes: Negative for injury, komal pain, redness, and discharge, ENT: Negative for injury, pain, and discharge, Neck: Negative for injury, pain, and swelling, Respiratory: Negative for shortness of breath, cough, wheezing, and pleuritic chest pain, Back: Negative for injury and pain, : Negative for injury, bleeding, discharge, and swelling, MS/Extremity: Negative for injury and deformity, Skin: Negative for injury, rash, and discoloration, Neuro: Negative for headache, weakness, numbness, tingling, and seizure, Psych: Negative for depression, anxiety, suicide ideation, homicidal ideation, and hallucinations, Allergy/Immunology: Negative for hives, rash, and allergies, Endocrine: Negative for neck swelling, polydipsia, polyuria, polyphagia, and marked weight changes, Hematologic/Lymphatic: Negative for swollen nodes, abnormal bleeding, and unusual bruising. 12:15 Cardiovascular: Positive for chest pain, of the chest. 12:15 Abdomen/GI: Positive for abdominal pain, of the epigastric area. Exam: 12:15 Constitutional: This is a well developed, well nourished patient who is awake, alert, komal and in no acute distress. Head/Face: Normocephalic, atraumatic. Eyes: Pupils equal round and reactive to light, extra-ocular motions intact. Lids and lashes normal. Conjunctiva and sclera are non-icteric and not injected. Cornea within normal limits. Periorbital areas with no swelling, redness, or edema. ENT: Nares patent. No nasal discharge, no septal abnormalities noted. Tympanic membranes are normal and external auditory canals are clear. Oropharynx with no redness, swelling, or masses, exudates, or evidence of obstruction, uvula midline. Mucous membranes moist. Neck: Trachea midline, no thyromegaly or masses palpated, and no cervical lymphadenopathy. Supple, full range of motion without nuchal rigidity, or vertebral point tenderness. No Meningismus. Chest/axilla: Normal chest wall appearance and motion. Nontender with no deformity. No lesions are appreciated. Abdomen/GI: Soft, non-tender, with normal bowel sounds. No distension or tympany. No guarding or rebound. No evidence of tenderness throughout. Back: No spinal tenderness. No costovertebral tenderness. Full range of motion. Female : Normal external genitalia. Skin: Warm, dry with normal turgor. Normal color with no rashes, no lesions, and no evidence of cellulitis. MS/ Extremity: Pulses equal, no cyanosis. Neurovascular intact. Full, normal range of motion. Neuro: Awake and alert, GCS 15, oriented to person, place, time, and situation. Cranial nerves II-XII grossly intact. Motor strength 5/5 in all extremities. Sensory grossly intact. Cerebellar exam normal. Normal gait. Psych: Awake, alert, with orientation to person, place and time. Behavior, mood, and affect are within normal limits. 12:15 Cardiovascular: Rate: normal, Rhythm: regular, Pulses: Pulses are 4+ in bilateral radial, brachial, femoral, popliteal, posterior tibial and and dorsalis pedis arteries.. Heart sounds: normal, normal S1and S2, no S3 or S4, no murmur, no rub, no gallop, murmur, not appreciated, Edema: is not appreciated, JVD: is not appreciated. 12:15 ECG was reviewed by the Attending Physician. Vital Signs: 09:44 BP 128 / 82; Pulse 73; Resp 16; Temp 98.0; Pulse Ox 96% on R/A; Weight 72.12 kg; Height iw 5 ft. 3 in. (160.02 cm); Pain 5/10; 10:26 Resp 18; Pulse Ox 88% on R/A; tw2 10:26 BP 129 / 71; Pulse 67; tw2 11:35 BP 145 / 74; Pulse 61; Resp 20; Pulse Ox 95% on 2 lpm NC; tw2 12:30 BP 136 / 71; Pulse 56; Resp 16; Pulse Ox 95% on 2 lpm NC; tw2 13:01 BP 142 / 65; Pulse 64; Resp 20; Pulse Ox 100% on 2 lpm NC; tw2 14:00 BP 152 / 68; Pulse 61; Resp 18; Pulse Ox 97% on 2 lpm NC; tw2 15:00 BP 135 / 74; Pulse 50; Resp 17; Pulse Ox 96% on 2 lpm NC; tw2 16:12 BP 150 / 63; Pulse 51; Resp 15; Pulse Ox 97% on 2 lpm NC; tw2 09:44 Body Mass Index 28.17 (72.12 kg, 160.02 cm) iw 10:26 pt placed on 2L nc at this time, provider notified. will continue to monitor tw2 MDM: 09:49 Patient medically screened. komal 12:23 Differential diagnosis: abnormal EKG, acute myocardial infarction, acute pericarditis, komal anxiety, coronary artery disease chest wall pain, Cholelithiasis costochondritis, herpes zoster, Rona-Larkin syndrome, pericarditis, pneumonia, pulmonary embolus, stable angina. HEART Score: History: Moderately Suspicious (1), ECG: Normal (0), Age: > 45 and < 65 years (1), Risk Factors: > or = 3 Risk factors for atherosclerotic disease (2), [Hypercholesterolemia] [Hypertension] [Active Smoker] [+ Family HX] Troponin: < or = 1 x Normal Limit (0). The patient was given aspirin in the Emergency Department. The patient's deep vein thrombosis risk score was calculated as follows: Total Score: 0. This patient was found to be at low risk for a deep vein thrombosis by using the Well's assessment criteria. The patient's pulmonary embolism risk score was calculated as follows: Total Score: 0-2 points. This patient was found to be at low risk for a pulmonary embolism by using the Well's assessment criteria. JENNIFER Risk Score: 1 - Three or more CAD risk factors, 1- Known CAD, 1 - ASA use in past 7 days, TOTAL SCORE = 3. Data reviewed: vital signs, nurses notes, lab test result(s), EKG, radiologic studies, CT scan, plain films. Data interpreted: health editor: rate is 61 beats/min, rhythm is regular, Pulse oximetry: on room air is 95 %. 10/15 09:51 Order name: Basic Metabolic Panel; Complete Time: 10:42 komal 10/15 09:51 Order name: CBC with Diff; Complete Time: 10:42 komal 10/15 09:51 Order name: LFT's; Complete Time: 10:42 10/15 09:51 Order name: Magnesium; Complete Time: 10:42 komal 10/15 09:51 Order name: NT PRO-BNP; Complete Time: 10:42 komal 10/15 09:51 Order name: PT-INR; Complete Time: 11:30 10/15 09:51 Order name: Troponin HS; Complete Time: 10:42 komal 10/15 09:51 Order name: SARS RAPID; Complete Time: 10:42 komal 10/15 09:51 Order name: Lipase; Complete Time: 10:42 [facility] 10/15 12:55 Order name: Urinalysis EDMS 10/15 12:55 Order name: CBC with Automated Diff EDMS 10/15 12:55 Order name: CBC with Automated Diff EDMS 10/15 12:55 Order name: CBC with Automated Diff EDMS 10/15 12:55 Order name: CBC with Automated Diff EDMS 10/15 09:51 Order name: XRAY Chest (1 view); Complete Time: 11:30 [facility] 10/15 10:45 Order name: CT Chest For PE Angio; Complete Time: 11:30 [facility] 10/15 10:45 Order name: CT Abd/Pelvis - IV Contrast Only; Complete Time: 11:39 [facility] 10/15 12:55 Order name: Comprehensive Metabolic Panel EDMS 10/15 12:55 Order name: Comprehensive Metabolic Panel EDMS 10/15 12:55 Order name: Comprehensive Metabolic Panel EDMS 10/15 12:55 Order name: Comprehensive Metabolic Panel EDMS 10/15 12:55 Order name: Magnesium EDMS 10/15 12:55 Order name: Magnesium EDMS 10/15 12:55 Order name: Phosphorus EDMS 10/15 12:55 Order name: Phosphorus EDMS 10/15 12:55 Order name: Troponin High Sensitivity EDMS 10/15 12:55 Order name: Troponin High Sensitivity EDMS 10/15 12:55 Order name: Troponin High Sensitivity EDMS 10/15 20:26 Order name: Urine Dipstick-Ancillary EDMS 10/15 20:36 Order name: Urinalysis EDMS 10/15 09:51 Order name: EKG; Complete Time: 09:54 [facility] 10/15 09:51 Order name: Cardiac monitoring; Complete Time: 09:55 [facility] 10/15 09:51 Order name: EKG - Nurse/Tech; Complete Time: 09:55 [facility] 10/15 09:51 Order name: IV Saline Lock; Complete Time: 09:55 [facility] 10/15 09:51 Order name: Labs collected and sent; Complete Time: 09:55 [facility] 10/15 09:51 Order name: O2 Per Protocol; Complete Time: 09:55 [facility] 10/15 09:51 Order name: O2 Sat Monitoring; Complete Time: 09:55 [facility] 10/15 12:14 Order name: US Abdomen Limited [facility] 10/15 12:55 Order name: CONS Physician Consult EDMS 10/15 12:55 Order name: Heart Healthy EDMS 10/15 12:56 Order name: Echo with Doppler EDMS 10/15 13:55 Order name: US EDMS EC:15 Rate is 40 beats/min. QRS Warren is Normal. CO interval is normal. QRS interval is komal normal. QT interval is normal. No Q waves. T waves are Normal. No ST changes noted. Clinical impression: Normal ECG and No evidence of ischemia. Interpreted by me. Reviewed by me. Administered Medications: 10:00 Drug: NS 0.9% 1000 ml Route: IV; Rate: 125 ml/hr; Site: right antecubital; bp 16:31 Follow up: IV Status: Infusion continued upon admission tw2 10:00 Drug: Aspirin 162 mg Route: PO; bp 10:53 Follow up: Response: No adverse reaction bp 10:00 Drug: morphine 2 mg Route: IVP; Infused Over: 4 mins; Site: right antecubital; bp 10:53 Follow up: Response: Pain is decreased bp 10:00 Drug: Zofran (Ondansetron) 4 mg Route: IVP; Site: right antecubital; bp 10:54 Follow up: Response: No adverse reaction bp 10:55 Drug: Pepcid (famotidine) 20 mg Route: IVP; Site: right antecubital; bp 12:26 Follow up: Response: No adverse reaction bp 12:26 Not Given (Physician Discretion; CANCELLED BY OBEIDd): Lovenox (enoxaparin) 1 mg/kg bp Sub-Q once Disposition Summary: 10/15/21 12:32 Hospitalization Ordered Hospitalization Status: Observation komal Provider: Lonny Cronin cha Condition: Stable komal Problem: new komal Symptoms: have improved komal Bed/Room Type: Standard komal Location: Telemetry/MedSurg (observation)(10/15/21 20:10) Room Assignment: [facility](10/15/21 20:10) Diagnosis - Chest pain, unspecified komal - Epigastric abdominal tenderness komal - Tobacco abuse counseling komal - Tobacco use komal - Other ovarian cysts - bilateral ovarian cyst komal - Essential (primary) hypertension komal Forms: - Medication Reconciliation Form komal - SBAR form komal Signatures: Dispatcher [employer] EDChaya Schwarz Martha RN RN Vivek Elkins MD MD cha Williams, Irene, RN RN iw Peltier, Brian, RN RN bp Wise, Tara RN tw2 Corrections: (The following items were deleted from the chart) 13:51 09:44 Home Meds: atorvastatin Oral once daily; iw bp 13:51 09:44 Home Meds: amlodipine 2.5 mg tab 2 tabs once daily; iw bp 13: 09:44 Home Meds: Prozac Oral 2 times per day; iw bp 13:51 09:45 Home Meds: Metoprolol Tartrate Oral; iw bp 13:51 10:00 Allergies: Aspirin; bp bp 16:20 12:32 Telemetry/MedSurg (observation) komal bd 16:20 12:32 [facility] bd 20:10 16:20 BR ER HOLD bd mw 20:10 16:20 ERHOLD- bd mw
--- NOTE | 2021-10-16 10:50 | RAD REPORT ---
EXAM DESCRIPTION: NM - Rest Stress Cardiac Imaging - 10/16/2021 10:28 am CLINICAL HISTORY: Chest pain. COMPARISON: None. TECHNIQUE: The patient was administered 10.8 mCi of Tc 99m Sestamibi prior to resting SPECT imaging of the heart. The patient was then administered 30. MCi of Tc 99m Sestamibi following exercise or ph armacologic stress. Multiplanar SPECT images were reviewed. FINDINGS: There is uniformity of radiotracer uptake involving the entire left ventricular myocardiu m on rest and stress images. The left ventricular ejection fraction equals 75% IMPRESSION: Negative for a myocardial perfusion defect
[2021-10-16 12:50] VITALS: BP 115/57
[2021-10-16] MEDS ORDERED: CLOPIDOGREL 75 MG TABLET PO SCH (13:00)
--- NOTE | 2021-10-16 14:23 | ECHO ---
HEIGHT: 5 ft 3 in WEIGHT: 159 lb 0 oz DATE OF STUDY: 10/16/[address]: Lonny Cronin MD 2-DIMENSIONAL: YES M.MODE: YES DOPPLER: YES COLOR FLOW: YES TDS: YES PORTABLE: YES DEFINITY: NO BUBBLE STUDY: NO DIAGNOSIS: CHEST PAIN CARDIAC HISTORY: CATHERIZATION: NO SURGERY: NO PROSTHETIC VALVE: NO PACEMAKER: NO MEASUREMENTS (cm) DIASTOLIC (NORMALS) SYSTOLIC (NORMALS) IVSd 1.1 (0.6-1.2) LA Diam 2.8 (1.9-4.0) LVEF 58% LVIDd 4.1 (3.5-5.7) LVIDs 2.8 (2.0-3.5) %FS 30% LVPWd 1.1 (0.6-1.2) Ao Diam 2.1 (2.0-3.7) 2 DIMENSIONAL ASSESSMENT: RIGHT ATRIUM: NORMAL LEFT ATRIUM: NORMAL RIGHT VENTRICLE: NORMAL LEFT VENTRICLE: NORMAL TRICUSPID VALVE: NORMAL MITRAL VALVE: NORMAL PULMONIC VALVE: NORMAL AORTIC VALVE: NORMAL PERICARDIAL EFFUSION: NONE AORTIC ROOT: NORMAL LEFT VENTRICULAR WALL MOTION: NORMAL DOPPLER/COLOR FLOW: NORMAL COMMENTS: NORMAL 2D ECHOCARDIOGRAM WITH DOPPLER. NO WALL MOTION ABNORMALITY. NO EFFUSION. TECHNOLOGIST: Gabbi ALFARO
--- NOTE | 2021-10-16 14:32 | TREADMILL ---
70% H.R.: 112 85% H.R.: 136 90% H.R.: 144 100% H.R.: 160 DX: CHEST PAIN Date of Study: 10/16/2021 Ht: 5' 3 " Wt: 159 lb 0 oz Consulting Physician: BETTINA MEDICATIONS: HISTORY: 61 YEAR OLD FEMALE WITH COMPLAINTS OF CHEST PAIN. HISTORY OF HYPERLIPIDEMIA, HYPERTENSION, SMOKES 1 PACK/DAY, DENIES ALCOHOL OR DRUG USE. FAMILY HISTORY OF CORONARY ARTERY DISEASE. PHYSICIAL EXAMINATION: RESTING B.P.: 134/76 RESTING H.R.: 70 RESTING EKG: NORMAL PROTOCOL: TESFAYE CARDIOLITE EXERCISE TIME: 4:15 MAXIMUM HEART RATE: 140 87 % OF PREDICTED B.P. AT PEAK STRESS: 202/71 H.R. AT 1 MINUTE POST EXERCISE: 119 IMPRESSION: TESFAYE CARDIOLITE PERFORMED. PATIENT PLACED ON TREADMILL. CARDIOLITE INJECTED PER PROTOCOL. SEE NUCLEAR MEDICINE REPORT. TARGET HEART RATE OF 140 OBTAINED. DENIES CHEST PAIN. NO SUPRAVENTRICULAR OR VENTRICULAR TACHCARDIA. PREMATURE VENTRICULAR COMPLEXES NOTED.
--- NOTE | 2021-10-16 14:43 | P.DS ---
Admission Date: 10/15/21 Discharge Date: 10/16/21 Disposition: ROUTINE DISCHARGE Discharge Condition: GOOD Consultations: 1. Cardiology Hospital Course: DIAGNOSES: # Chest Pain, with multiple Cardiac Risk Factors # History of Cerebrovascular Accident (April 2020) # Hypertension # Hyperlipidemia # Tobacco Use Disorder # Depression # Bilateral Overian Masses # Two Small Gallbladder Polyps HOSPITAL COURSE: Ms. Natacha Villalba is a pleasant 61-year-old female with a past medical history significant for prior cerebrovascular accident (April 2020), hypertension, hyperlipidemia, and tobacco use disorder who was admitted to the [facility] on 10/15/2021 for midepigastric and chest pain. Upon further evaluation, EKG revealed normal sinus rhythm without STEMI criteria. Chest x-ray revealed, "no acute cardiopulmonary process. No significant change from comparison study." CT abdomen/pelvis, "bilateral ovarian masses are present, 15 cm on the left and 5 cm on the right. Bilateral cystadenoma is the favored diagnosis. Cystadenocarcinoma cannot be excluded given the left-side septations and right-side lobulated contour on the medial inferior aspect." CT chest angiogram revealed, "no pulmonary emboli identified. No other significant or suspicious findings." Right upper abdominal ultrasound revealed, "two small gallbladder polyps are seen. No stones, sludge or acute gallbladder finding. No biliary tree abnormality." Cardiology was consulted and she was evaluated by Dr. Hearn. A transthoracic echocardiogram revealed, " normal 2d echocardiogram with doppler. no wall motion abnormality. no effusion." A nuclear medicine stress test revealed, "negative for a myocardial perfusion defect." Dr. Green has cleared her for discharge today. Of note, during her evaluation, she was found to have bilateral ovarian masses which were concerning for possible underlying ovarian malignancy. She was also noted to have 2 small gallbladder polyps, which can also be an early sign of malignancy. These findings were discussed with her and she was advised to sche dule follow-up appointment with her PCP as well as her obstetrics/inspector and mender following discharge for further evaluation of these findings. She verbalized understanding and agreed to make these appointments. On 10/16/2021, she was seen on morning rounds and deemed medically stable for discharge. She was given the opportunity to ask questions and reported no further questions. Furthermore, all questions were answered to the best of my ability. Today, I personally spent 20 minutes on her case, of which greater than 50% of the time was spent in patient education, counseling, and coordination of care as described above. - Physical Exam General: Alert, In no apparent distress, Oriented x3 HEENT: Atraumatic, PERRLA, Mucous membr. moist/pink, EOMI, Sclerae nonicteric Neck: Supple, JVD not distended Respiratory: Clear to auscultation bilaterally, Normal air movement Cardiovascular: No edema, Regular rate/rhythm, Normal S1 S2, No gallops, No rubs, No murmurs Gastrointestinal: Normal bowel sounds, Soft and benign, Non-distended, No tenderness, No rebound, No guarding Musculoskeletal: No clubbing Integumentary: No rashes Neurological: Normal gait, Normal affect Vital Signs/Physical Exam: Temp Pulse Resp BP Pulse Ox 98.2 F 65 18 115/57 L 92 10/16/21 12:00 10/16/21 12:00 10/16/21 12:00 10/16/21 12:00 10/16/21 12:00 Laboratory Data at Discharge: WBC 6.3 K/uL (4.3-10.9) 10/15/21 10:00 Hgb 14.6 g/dL (12.0-15.0) 10/15/21 10:00 Hct 42.4 % (36.0-45.0) 10/15/21 10:00 Plt Count 261 K/uL (152-406) 10/15/21 10:00 PT 10.1 SECONDS (9.5-12.5) 10/15/21 10:00 INR 0.92 10/15/21 10:00 Sodium 137 mmol/L (136-145) 10/16/21 05:22 Potassium 4.0 mmol/L (3.5-5.1) 10/16/21 05:22 BUN 12 mg/dL (7-18) 10/16/21 05:22 Creatinine 0.74 mg/dL (0.55-1.3) 10/16/21 05:22 Glucose 118 mg/dL (74-106) H 10/16/21 05:22 Phosphorus 2.8 mg/dL (2.5-4.9) 10/16/21 05:22 Magnesium 2.2 mg/dL (1.8-2.4) 10/16/21 05:22 Total Bilirubin 0.2 mg/dL (0.2-1.0) 10/16/21 05:22 AST 15 U/L (15-37) 10/16/21 05:22 ALT 32 U/L (12-78) 10/16/21 05:22 Alkaline Phosphatase 117 U/L (45-117) 10/16/21 05:22 Lipase 166 U/L (73-393) 10/15/21 10:00 Home Medications: Amlodipine [Norvasc*] 5 mg PO DAILY #30 tab 05/15/20 Aspirin [Aspirin EC 81 MG] 81 mg PO DAILY #90 tablet. 05/15/20 Atorvastatin Calcium [Lipitor] 80 mg PO DAILY #30 tablet 05/15/20 Clopidogrel Bisulfate [Plavix*] 75 mg PO DAILY #30 tablet 05/15/20 Folic Acid 1 mg PO DAILY #90 tablet 05/15/20 Losartan Potassium [Cozaar*] 50 mg PO DAILY #30 tablet 05/15/20 Nicotine [Nicoderm*] 21 mg TD DAILY #30 patch.td24 05/15/20 Physician Discharge Instructions: 1. Please schedule follow-up with your PCP in 3-5 days for the polyps in your gallbladder 2. Please schedule follow-up with Cardiology (Dr. Hearn) in 5-7 days. 3. Please schedule follow-up with your [facility] in 5-7 days for evaluation of the masses on your ovaries Diet: AHA Activity: Ad akil Followup: NONE,NONE [Primary Care Provider] - Johnathon Hearn MD [ACTIVE - CAN ADMIT] - Time spent managing pt's care (in minutes): 20
[2021-10-16 18:14] VITALS: TEMP 98.7
--- NOTE | 2021-10-18 13:18 | PN ---
Date of Progress Note: 10/16/2021 Ms. Villalba was seen by Dr. Hearn for CVA, dyslipidemia, atypical chest pain. Echocardiogram and Karina scan today were both normal. The patient can go home whenever it is okay with Dr. Cronin. We will se e her in the office as an outpatient if her symptoms reoccur. VICKY/KYLIE Voice ID: [id number] Report ID: [id number]
--- NOTE | 2021-10-23 22:36 | P.PN ---
Date of Service: 10/23/21 On discharge follow-up, I noted that Ms. Villalba's urine culture had returned positive for Streptococcus Agalactiae (Group B) post-discharge. I called her to check up on her and she stated that she has been feeling generalized weakness as well as supra-pubic cramping. Given that these symptoms may be secondary to urinary tract infection, I recommended that she received treatment. This organism is sensitive only to penicillin and vancomycin; however, she reports a penicillin allergy. I advised that she return to the Emergency Department for treatment and evaluation. I have contacted the current Emergency Medicine physician (Dr. Williamson), the current hospitalist (Dr. Shannon), and Infectious Diseases (Dr. Vidal). Plan will be to admit her back to the hospital service for PICC line placement and 7-10 days of IV vancomycin. She stated that she agreed with this plan and will present to the Emergency Department around 19:00. Lonny Cronin M.D.
== END 2021-10-16 17:03 | disposition home or self-care (01) | DRG 690 ==
LOC: ER 09:33 → ERHOLD 12:50 → 2ND 20:16 → INTOOBSV 20:33 → OBSVTOIN 20:33
PROVIDERS: ADMIT Internal Medicine; ATTEND Internal Medicine
DX: N39.0 Urinary tract infection, site not specified (principal); C56.3 Malignant neoplasm of bilateral ovaries; C23 Malignant neoplasm of gallbladder; R07.9 Chest pain, unspecified; I10 Essential (primary) hypertension; E78.5 Hyperlipidemia, unspecified; F32.A Depression, unspecified; B95.1 Streptococcus, group B, as the cause of diseases classified elsewhere; R31.29 Other microscopic hematuria; F17.210 Nicotine dependence, cigarettes, uncomplicated; Z86.73 Personal history of transient ischemic attack (TIA), and cerebral infarction without residual deficits; Z88.0 Allergy status to penicillin; Z79.82 Long term (current) use of aspirin; Z20.822 Contact with and (suspected) exposure to COVID-19
CPT/HCPCS: 36415; 71045; 71275; 74177; 76705; 78452; 80048; 80053; 80076; 81001; 81003; 83690; 83735; 83880; 84100; 84484; 85025; 85610; 87077; 87086; 87088; 87186; 87811; 93005; 93017; 93306; 96361; 96374; 96375; 99285; A9500; J1650; J2270; J2405; J7030; Q9967

== ENCOUNTER 2021-10-23 19:52 | Emergency (ER) | payer SELFPAY ==
--- OUTSIDE RECORDS SUMMARY | 2021-10-23 19:56 | XMS REPORT | Continuity of Care Document ---
:1960 Author Organization [facility] t Address [address] [place] [address] Care Team Providers Name Role Phone Jamila STOVALL, Brayan Primary Care Physician [phone] Problems This patient has no known problems. Allergies, Adverse Reactions, Alerts Allergy Allergy Status Severity Reaction(s) Onset Inactive Treating Comm ents Source Name Type Date Date Clinician Mesna - Propensi Active Intraven ty to 7-07 ous adverse 00:00: reaction 00 to drug Penicill Propensi Active 0 ins ty to 2-16 adverse 00:00: reaction 00 to drug Medications Ordered Filled Start Stop Current Ordering Indication Dosage Frequency Signature Comments Components Source Medication Medication Date Date Medication? Clinician (SIG) Name Name Prozac 20 2021-0 No 1mg mg capsule 09-20 00:00: 00 ProAir HFA 2021-0 No 12mcg/a 90 706 ctuatio mcg/actuati 00:00: n on aerosol 00 inhaler ProAir HFA 2021-0 No 12mcg/a 90 7-06 ctuatio mcg/actuati 00:00: n on aerosol 00 inhaler clopidogrel 2-0 No 1mg 75 mg 6-27 tablet 00:00: 00 clopidogrel 2-0 No 1mg 75 mg 6-27 tablet 00:00: 00 Prozac 20 2-0 No 1mg mg capsule 08-29 00:00: 00 Prozac 20 2021-0 No 1mg mg capsule 08-29 00:00: 00 atorvastati 2-0 No 1mg n 40 mg 6-09 tablet 00:00: 00 losartan 50 2-0 No 1mg mg tablet 08-22 00:00: 00 atorvastati 2-0 No 1mg n 40 mg 6-09 tablet 00:00: 00 losartan 50 2022-0 No 1mg mg tablet 08-22 00:00: 00 clopidogrel 2022-0 No 1mg 75 mg 5-26 tablet 00:00: 00 clopidogrel 2022-0 No 1mg 75 mg 5-26 tablet 00:00: 00 clindamycin 2022-0 No 1mg HCl 300 mg 5-25 capsule 00:00: 00 clindamycin 2022-0 No 1mg HCl 300 mg 5-25 capsule 00:00: 00 Prozac 20 2-0 No 1mg mg capsule 08-05 00:00: 00 Prozac 20 2-0 No 1mg mg capsule 08-05 00:00: 00 triamcinolo 2-0 No 1% ne 5-18 acetonide 00:00: 0.1 % 00 topical ointment triamcinolo 2-0 No 1% ne 5-18 acetonide 00:00: 0.1 % 00 topical ointment metoprolol 2-0 No 1mg succinate 5-16 ER 100 mg 00:00: tablet,exte 00 nded release 24 hr metoprolol 2-0 No 1mg succinate 5-16 ER 100 mg 00:00: tablet,exte 00 nded release 24 hr amlodipine 2-0 No 1mg 5 mg tablet 07-22 00:00: 00 amlodipine 2-0 No 1mg 5 mg tablet 07-22 00:00: 00 Prozac 20 2-0 No 1mg mg capsule 07-19 00:00: 00 Prozac 20 2-0 No 1mg [...] losartan 50 2-0 No 1mg mg tablet 3- 00:00: 00 Prozac 20 2-0 No 1mg mg capsule 3- 00:00: 00 Prozac 20 2-0 No 1mg mg capsule 3 00:00: 00 Dose 2022-0 No Unknown 3-15 [...] 20 mg 3-01 tablet 00:00: 00 Dose 2022-0 No Unknown 2-15 00:00: 00 Dose 2022-0 [...] mg capsule 1-25 00:00: 00 Prozac 20 2-0 No 1mg mg capsule 1-25 00:00: 00 [...] losartan 50 2020-1 No 1mg mg tablet 0-27 00:00: 00 amlodipine 2020-1 No 1mg 5 mg tablet 0-27 00:00: 00 losartan 50 2020-1 No 1mg mg tablet 0-27 00:00: 00 ProAir HFA 2020-1 No 12mcg/a 90 0-27 ctuatio mcg/actuati 00:00: n on aerosol 00 inhaler metoprolol 2020- No 1mg succinate 0-27 ER 100 mg 00:00: tablet,exte 00 nded release 24 hr atorvastati 2020- No 2mg n 20 mg 0-27 tablet [...] mg tablet 11-22 00:00: 00 Lexapro 20 1-0 No 1mg mg tablet 11-20 00:00: 00 Lexapro 20 1-0 No 1mg mg tablet 11-20 00:00: 00 ProAir HFA 1-0 No 12mcg/a 90 8-15 [...] mg 5-05 tablet 00:00: 00 losartan 50 2020-0 No 1mg mg tablet 5-05 00:00: 00 amlodipine 1-0 No 1mg 5 mg tablet 5-05 00:00: 00 ProAir HFA 2020-0 No 12mcg/a 90 5-05 ctuatio mcg/actuati 00:00: n on aerosol 00 inhaler atorvastati 2020-0 No 2mg n 20 mg 5-05 tablet 00:00: 00 clopidogrel 1-0 No 1mg 75 mg 5-05 tablet 00:00: 00 losartan 50 2020-0 No 1mg mg tablet 5-05 00:00: 00 amlodipine 1-0 No 1mg 5 mg tablet 5-05 00:00: 00 vitamin B12 2020-0 No 1mcg 500 4-29 mcg-folic 00:00: acid 400 00 mcg tablet Vitamin D3 2020-0 No 1(4,000 100 mcg 4-29 unit) (4,000 00:00: unit) 00 capsule vitamin B12 2020-0 No 1mcg 500 4-29 mcg-folic 00:00: acid [...] 0.5 % 00 topical cream ProAir HFA 2020-0 No 12mcg/a 90 3-04 ctuatio mcg/actuati 00:00: n on aerosol 00 inhaler triamcinolo 2020-0 No 1% ne 3-04 acetonide 00:00: 0.5 % 00 topical cream aspirin 81 1-0 No 1mg mg 2-25 tablet,jose 00:00: yed release 00 clopidogrel 2021-0 No 1mg 75 mg 2-25 tablet 00:00: 00 aspirin 81 1-0 No 1mg mg 2-25 tablet,jose 00:00: yed [...] inhaler ProAir HFA 2020-0 No 12mcg/a 90 1-26 ctuatio mcg/actuati 00:00: n on aerosol 00 inhaler rosuvastati 2021-0 No 1mg n 10 mg 1-13 tablet 00:00: 00 rosuvastati 2020-0 No 1mg n 10 mg 1-13 tablet 00:00: 00 amlodipine 2020-0 No 1mg 5 mg tablet 1-12 00:00: 00 losartan 50 2020-0 No 1mg mg tablet 1-12 00:00: 00 clindamycin 1-0 No 1mg HCl 300 mg 1-12 capsule 00:00: 00 amlodipine 2020-0 No 1mg 5 mg tablet 1-12 00:00: 00 losartan 50 2020-0 No 1mg mg tablet 1-12 00:00: 00 clindamycin 1-0 No 1mg HCl 300 mg 1-12 capsule [...] mg tablet 0-20 00:00: 00 losartan 50 2020-1 No 1mg mg tablet 0-20 00:00: 00 amlodipine 2019-1 No 1mg 2.5 mg 0-20 tablet 00:00: 00 amlodipine 2020-1 No 1mg 2.5 mg 0-20 tablet 00:00: 00 losartan 50 2019-1 No 1mg mg tablet 0-20 00:00: 00 losartan 50 2019- No 1mg mg tablet 0-20 00:00: 00 amlodipine 2019-1 No 1mg 2.5 mg 0-20 tablet 00:00: 00 ProAir HFA 2019-1 No 12mcg/a 90 0-08 ctuatio mcg/actuati 00:00: [...] 00:00: n on aerosol 00 inhaler lisinopril 2019- No 1mg 10 mg 0-08 tablet 00:00: 00 losartan 50 2019-03 No 1mg mg tablet 0-08 00:00: 00 clonidine 2019-1 No 1mg HCl 0.1 mg 0-08 tablet 00:00: 00 meclizine 2019- No 1mg 25 mg 0-08 tablet 00:00: 00 Immunizations Ordered Immunization Filled Immunization Date Status Commen ts Source Name Name Moderna COVID-19 2020-06-19 Completed Vaccine 00:00:00 Moderna COVID-19 2020-06-19 Completed Vaccine 00:00:00 Moderna COVID-19 2020-05-19 Completed Vaccine 00:00:00 Moderna COVID-19 2020-05-19 Completed Vaccine 00:00:00 Vital Signs [...] Goal Plan of Care Note [code = 74734-7] Goal Plan of Care Note [code = 38636-3] Goal Plan of Care Note [code = 00576-6] Goal Plan of Care Note [code = 40502-0] Goal Plan of Care Note [code = 02303-3] Goal Plan of Care Note [code = 69984-7] Goal Plan of Care Note [code = 58062-2] Goal Plan of Care Note [code = 02271-9] Goal Plan of Care Note [code = 27571-0] Goal Plan of Care Note [code = 24052-0] Goal Plan of Care Note [code = 73907-9] Goal Plan of Care Note [code = 09660-3] Goal Plan of Care Note [code = 25727-8] Goal Plan of Care Note [code = 83361-5] Goal Plan of Care Note [code = 95598-1] Goal Plan of Care Note [code = 51646-7] Goal Plan of Care Note [code = 75462-5] Goal Plan of Care Note [code = 85921-8] Goal Plan of Care Note [code = 82910-7] Goal Plan of Care Note [code = 90681-3] Goal Plan of Care Note [code = 50710-6] Goal Plan of Care Note [code = 87922-3] Goal Plan of Care Note [code = 49706-5] Goal Plan of Care Note [code = 98433-0] Goal Plan of Care Note [code = 30410-2] Goal Plan of Care Note [code = 35276-0] Goal Plan of Care Note [code = 98209-8] Goal Plan of Care Note [code = 89838-6] Goal Plan of Care Note [code = 00826-3] Goal Plan of Care Note [code = 20044-5] Goal Plan of Care Note [code = 92809-1] Goal Plan of Care Note [code = 37004-7] Goal Plan of Care Note [code = 28311-6] Goal Plan of Care Note [code = 98683-6] Goal Plan of Care Note [code = 56866-0] Goal Plan of Care Note [code = 75307-9] Goal Plan of Care Note [code = 43873-6] Goal Plan of Care Note [code = 67859-7] Goal Plan of Care Note [code = 44148-4] Goal Plan of Care Note [code = 28009-0] Goal Plan of Care Note [code = 00098-6] Goal Plan of Care Note [code = 11020-6] Goal Plan of Care Note [code = 15565-3] Goal Plan of Care Note [code = 25954-5] Goal Plan of Care Note [code = 85599-9] Goal Plan of Care Note [code = 66925-7] Goal Plan of Care Note [code = 17403-1] Goal Plan of Care Note [code = 69751-7] Goal Plan of Care Note [code = 62923-0] Goal Plan of Care Note [code = 67136-5] Goal Plan of Care Note [code = 66230-4] Goal Plan of Care Note [code = 18917-8] Goal Plan of Care Note [code = 78088-4] Goal Plan of Care Note [code = 50794-0] Goal Plan of Care Note [code = 84487-2] Goal Plan of Care Note [code = 43669-2] Goal Plan of Care Note [code = 76385-9] Goal Plan of Care Note [code = 31308-8] Goal Plan of Care Note [code = 32694-2] Goal Plan of Care Note [code = 81410-3] Goal Plan of Care Note [code = 04283-3] Goal Plan of Care Note [code = 92038-7] Goal Plan of Care Note [code = 03051-3] Goal Plan of Care Note [code = 99286-1] Encounters Start End Encounter Admission Attending Care Care Encounter Source Date/Time Date/Time Type Type Clinicians Facility Department ID 2021-09-19 2021-09-19 Outpatient [id number] 00:00:00 00:00:00 Visit [id number] [id number] -[id number]-[id number] 2021-09-18 2021-09-18 Outpatient [id number] 00:00:00 00:00:00 Visit 5276-48ee [id number]-a -[id number] [id number] Results Test Description Test Time Test Comments Results Result Comments Source CT/NG, NAAT, URINE 2021-09-23 19:10:56 Test Item Value Reference Range Interpretation Comme nts GONORRHEA, NAAT NEGATIVE NEGATIVE IMPORTA NT NOTICE: SEE ANNOUNCEMENT AT (test code = [email or web address] Software Note: 70329) Assay methodolo gy is nucleic acid amplification by transcriptio n mediated amplification (TMA) utilizing the A ptima Combo 2 Assay. CHLAMYDIA, NAAT NEGATIVE NEGATIVE IMPORTA NT NOTICE: SEE ANNOUNCEMENT AT (test code = [email or web address] [email or web address] Note: 38499) Assay methodolo gy is nucleic acid amplification by transcriptio n mediated amplification (TMA) utilizing the A ptima Combo 2 Assay. TRICHOMONAS, NAAT, [id number] 18:03:06 Test Item Value Reference Range Interpretation Comments TRICHOMONAS, NAAT NEGATIVE NEGATIVE IMPOR TANT NOTICE: SEE (test code = [place] [address]) [email or web address] [email or web address] Note: Assay methodology is nucleic acid amplification b y wool supplier m ediated amplification ( TMA) and Hybridization P rotection Assay (HPA) uti lizing the [employer] APTIMA platform. A negative result does not exclude low lev el infection, specimensamplin g error, or collection rd scott [id number] 04:27:22 Test Item Value Reference Range Interpretation Comments RPR RESULT (test NON-REACTIVE NON-REACTIVE code = 3501) RPR TITER (test NOT INDIC. NOT INDIC. UNLESS OTHE RWISE code = 3500) TITER INDICATED, ALL TESTING PERFORMED [facility]ENTEREnhance[facility], [employer] [address] [place] [address] 4 LABORATORY DIRE CTOR: CARLOS MANUEL SMITH M.D. CLIA NUMBER [id number] [place] [id number] HEMOGLOBIN [id number] 00:00:00 Test Item Value Reference Range Interpretation Comments HEMOGLOBIN A1c (test code = 80474) 6.1 % HEMOGLOBIN [id number] 00:00:00 Test Item Value Reference Range Interpretation Comments HEMOGLOBIN A1c (test code = 43479) 6.1 % LIPID [id number] 00:00:00 Test Item Value Reference Range Interpretation Comments CHOLESTEROL (test code = 2210) 221 MG/DL TRIGLYCERIDES (test code = 2232) 240 MG/DL HDL CHOLESTEROL (test code = 2220) 43 MG/DL CALC LDL CHOL (test code = 2237) 139 MG/DL RISK RATIO LDL/HDL (test code = 3.23 RATIO 2238) HEMOGLOBIN [id number] 00:00:00 Test Item Value Reference Range Interpretation Comments HEMOGLOBIN A1c (test code = 50490) 6.1 % HEMOGLOBIN [id number] 00:00:00 Test Item Value Reference Range Interpretation Comments HEMOGLOBIN A1c (test code = 79418) 6.1 % LIPID [id number] 00:00:00 Test Item Value Reference Range Interpretation Comments CHOLESTEROL (test code = 2210) 221 MG/DL TRIGLYCERIDES (test code = 2232) 240 MG/DL HDL CHOLESTEROL (test code = 2220) 43 MG/DL CALC LDL CHOL (test code = 2237) 139 MG/DL RISK RATIO LDL/HDL (test code = 3.23 RATIO 2238) CBC W/AUTO [id number] 00:00:00 Test Item Value Reference Range Interpretation [...] NUCLEATED RBCS (test code = 0.00 K/UL 09997) CBC W/AUTO [id number] 00:00:00 Test Item Value Reference Range Interpretation [...] NUCLEATED RBCS (test code = 0.00 K/UL 69033) [id number] 00:00:00 Test Item Value Reference Range Interpretation Comments TSH, THIRD GENERATION (test code 1.240 UIU/ML = 2821) [id number] 00:00:00 Test Item Value Reference Range Interpretation Comments TSH, THIRD GENERATION (test code 1.240 UIU/ML = 2821) VITAMIN [id number] 00:00:00 Test Item Value Reference Range Interpretation Comments VITAMIN B-12 (test code = 2840) >2000 PG/ML VITAMIN [id number] 00:00:00 Test Item Value Reference Range Interpretation Comments VITAMIN B-12 (test code = 2840) >2000 PG/ML VITAMIN D, 25 [id number] 00:00:00 Test Item Value Reference Range Interpretation Comments VITAMIN D, 25 OH (test code = 4958) 51 NG/ML CBC W/AUTO [id number] 00:00:00 Test Item Value Reference Range Interpretation [...] NUCLEATED RBCS (test code = 0.00 K/UL 65149) CBC W/AUTO [id number] 00:00:00 Test Item Value Reference Range Interpretation [...] NUCLEATED RBCS (test code = 0.00 K/UL 94320) [id number] 00:00:00 Test Item Value Reference Range Interpretation Comments TSH, THIRD GENERATION (test code 1.240 UIU/ML = 2821) [id number] 00:00:00 Test Item Value Reference Range Interpretation Comments TSH, THIRD GENERATION (test code 1.240 UIU/ML = 2821) VITAMIN [id number] 00:00:00 Test Item Value Reference Range Interpretation Comments VITAMIN B-12 (test code = 2840) >2000 PG/ML VITAMIN [id number] 00:00:00 Test Item Value Reference Range Interpretation Comments VITAMIN B-12 (test code = 2840) >2000 PG/ML VITAMIN D, 25 [id number] 00:00:00 Test Item Value Reference Range Interpretation Comments VITAMIN D, 25 OH (test code = 4958) 51 NG/ML CULTURE, [id number] 00:00:00 Test Item Value Reference Range Interpretation Comments CULTURE, URINE (test SPECIMEN NUMBER: code = 57507) [id number] CULTURE, [id number] 00:00:00 Test Item Value Reference Range Interpretation Comments CULTURE, URINE (test SPECIMEN NUMBER: code = 20853) [id number] COMPREHENSIVE METABOLIC [id number] 00:00:00 Test Item Value Reference Range Interpretation Comments GLUCOSE (test code = 2217) 123 MG/DL BUN (test code = 2208) 19 MG/DL CREATININE (test code = 2214) 0.86 MG/DL eGFR AMER. (test code 86 ML/MIN/1.73 = 46185) eGFR NON- AMER. (test 74 ML/MIN/1.73 code = 93794) CALC BUN/CREAT (test code = 22 RATIO 2235) SODIUM (test code = 2231) 142 MEQ/L POTASSIUM (test code = 2228) 3.9 MEQ/L CHLORIDE (test code = 2215) 102 MEQ/L CARBON DIOXIDE (test code = 28 MEQ/L 6) CALCIUM (test code = 2209) 10.5 MG/DL [...] (test code = 2219) 34 U/L LIPID [id number] 00:00:00 Test Item Value Reference Range Interpretation Comments CHOLESTEROL (test code = 2210) 224 MG/DL TRIGLYCERIDES (test code = 2232) 228 MG/DL HDL CHOLESTEROL (test code = 2220) 46 MG/DL CALC LDL CHOL (test code = 2237) 141 MG/DL RISK RATIO LDL/HDL (test code = 3.07 RATIO 2238) COMPREHENSIVE METABOLIC [id number] 00:00:00 Test Item Value Reference Range Interpretation Comments GLUCOSE (test code = 2217) 123 MG/DL BUN (test code = 2208) 19 MG/DL CREATININE (test code = 2214) 0.86 MG/DL eGFR AMER. (test code 86 ML/MIN/1.73 = 50332) eGFR NON- AMER. (test 74 ML/MIN/1.73 code = 49317) CALC BUN/CREAT (test code = 22 RATIO [...] (test code = 2219) 34 U/L LIPID [id number] 00:00:00 Test Item Value Reference Range Interpretation [...] eGFR AMER. (test code 102 ML/MIN/1.73 = 73044) eGFR NON- AMER. (test 88 ML/MIN/1.73 code = 16795) CALC BUN/CREAT (test code = 16 RATIO [...] CALC GLOBULIN (test code = 2.7 G/DL 2240) CALC A/G RATIO (test code = 1.9 [...] eGFR AMER. (test code 102 ML/MIN/1.73 = 57471) eGFR NON- AMER. (test 88 ML/MIN/1.73 code = 75147) CALC BUN/CREAT (test code = 16 RATIO [...]
--- NOTE | 2021-10-23 20:19 | ER ---
Nurse's Notes [facility] Name: Natacha Villalba Age: 61 yrs Sex: Female : 1960 Arrival Date: 10/23/2021 Time: 19:54 Bed Waiting Private MD: Diagnosis: Presentation: 10/23 20:19 Note pt states she does not want to wait and will go home and come back later when it ld1 is not so busy. ED Course: :54 Patient arrived in ED. bp1 Administered Medications: No medications were administered Outcome: 20:19 Patient left the ED. ld1 Signatures: Geovanna Em bp1 Stephanie Baca, RN RN ld1
== END 2021-10-23 20:19 | disposition left against medical advice (07) ==
LOC: ER 19:52
DX: Z02.9 Encounter for administrative examinations, unspecified (principal)

== ENCOUNTER 2021-10-24 10:39 | Observation (INO) | payer SELFPAY ==
--- OUTSIDE RECORDS SUMMARY | 2021-10-24 10:44 | XMS REPORT | Continuity of Care Document ---
:1960 Author Organization [facility] t Address [address] [place] [address] Care Team Providers Name Role Phone Jamila STOVALL, Brayan Primary Care Physician [phone] Problems This patient has no known problems. [...] Goal Plan of Care Note [code = 70891-4] Goal Plan of Care Note [code = 70440-3] Goal Plan of Care Note [code = 33594-1] Goal Plan of Care Note [code = 71925-5] Goal Plan of Care Note [code = 66463-3] Goal Plan of Care Note [code = 61832-4] Goal Plan of Care Note [code = 55748-0] Goal Plan of Care Note [code = 10326-5] Goal Plan of Care Note [code = 21513-0] Goal Plan of Care Note [code = 27253-8] Goal Plan of Care Note [code = 71679-0] Goal Plan of Care Note [code = 46425-1] Goal Plan of Care Note [code = 44734-1] Goal Plan of Care Note [code = 63880-2] Goal Plan of Care Note [code = 02914-1] Goal Plan of Care Note [code = 32774-3] Goal Plan of Care Note [code = 31027-0] Goal Plan of Care Note [code = 46674-6] Goal Plan of Care Note [code = 41014-3] Goal Plan of Care Note [code = 63623-6] Goal Plan of Care Note [code = 05146-7] Goal Plan of Care Note [code = 46555-6] Goal Plan of Care Note [code = 75816-0] Goal Plan of Care Note [code = 96159-3] Goal Plan of Care Note [code = 67854-1] Goal Plan of Care Note [code = 56947-9] Goal Plan of Care Note [code = 73055-3] Goal Plan of Care Note [code = 24872-4] Goal Plan of Care Note [code = 35725-0] Goal Plan of Care Note [code = 31608-7] Goal Plan of Care Note [code = 84059-5] Goal Plan of Care Note [code = 37716-2] Goal Plan of Care Note [code = 25406-8] Goal Plan of Care Note [code = 54979-6] Goal Plan of Care Note [code = 75608-6] Goal Plan of Care Note [code = 23762-2] Goal Plan of Care Note [code = 01150-7] Goal Plan of Care Note [code = 19218-1] Goal Plan of Care Note [code = 14967-3] Goal Plan of Care Note [code = 21079-7] Goal Plan of Care Note [code = 51308-5] Goal Plan of Care Note [code = 13327-3] Goal Plan of Care Note [code = 56449-7] Goal Plan of Care Note [code = 36062-5] Goal Plan of Care Note [code = 80081-1] Goal Plan of Care Note [code = 16687-4] Goal Plan of Care Note [code = 38942-1] Goal Plan of Care Note [code = 08712-3] Goal Plan of Care Note [code = 57919-2] Goal Plan of Care Note [code = 66301-3] Goal Plan of Care Note [code = 19273-8] Goal Plan of Care Note [code = 97216-1] Goal Plan of Care Note [code = 24585-0] Goal Plan of Care Note [code = 93608-6] Goal Plan of Care Note [code = 95225-7] Goal Plan of Care Note [code = 54850-8] Goal Plan of Care Note [code = 59281-6] Goal Plan of Care Note [code = 60882-1] Goal Plan of Care Note [code = 85467-7] Goal Plan of Care Note [code = 04463-1] Goal Plan of Care Note [code = 19747-4] Goal Plan of Care Note [code = 53776-7] Goal Plan of Care Note [code = 05857-9] Goal Plan of Care Note [code = 56658-7] Encounters Start End Encounter Admission Attending Care Care Encounter Source Date/Time Date/Time Type Type Clinicians Facility Department ID 2021-09-19 2021-09-19 Outpatient [id number] 00:00:00 00:00:00 Visit [id number] 2021-09-18 2021-09-18 Outpatient [id number] 00:00:00 00:00:00 Visit [id number] Results Test Description Test Time Test Comments Results Result Comments Source CT/NG, NAAT, URINE 2021-09-23 19:10:56 Test Item Value Reference Range Interpretation Comme nts GONORRHEA, NAAT NEGATIVE NEGATIVE IMPORTA NT NOTICE: SEE ANNOUNCEMENT AT (test code = [email or web address] MalawirineRF Controls Note: 92197) Assay methodolo gy is nucleic acid amplification by transcriptio n mediated amplification (TMA) utilizing the A ptima Combo 2 Assay. CHLAMYDIA, NAAT NEGATIVE NEGATIVE IMPORTA NT NOTICE: SEE ANNOUNCEMENT AT (test code = [email or web address] Note: 26284) Assay methodolo gy is nucleic acid amplification by transcriptio n mediated amplification (TMA) utilizing the A ptima Combo 2 Assay. TRICHOMONAS, NAAT, [id number] 18:03:06 Test Item Value Reference Range Interpretation Comments TRICHOMONAS, NAAT NEGATIVE NEGATIVE IMPOR TANT NOTICE: SEE (test code = [place] [address]) [email or web address] eCobasUrineKit Note: Assay methodology is nucleic acid amplification b y seed cone picker m ediated amplification ( TMA) and Hybridization P rotection Assay (HPA) uti lizing the Anevia APTIMA platform. A negative result does not exclude low lev el infection, specimensamplin g error, or collection rd scott [id number] 04:27:22 Test Item Value Reference Range Interpretation Comments RPR RESULT (test NON-REACTIVE NON-REACTIVE code = 3501) RPR TITER (test NOT INDIC. NOT INDIC. UNLESS OTHE RWISE code = 3500) TITER INDICATED, ALL TESTING PERFORMED [facility] [address] [place] [address] 4 LABORATORY DIRE CTOR: CARLOS MANUEL SMITH M.D. CLIA NUMBER [id number] [place] [id number] HEMOGLOBIN [id number] 00:00:00 Test Item Value Reference Range Interpretation Comments HEMOGLOBIN A1c (test code = 58744) 6.1 % HEMOGLOBIN [id number] 00:00:00 Test Item Value Reference Range Interpretation Comments HEMOGLOBIN A1c (test code = 76008) 6.1 % LIPID [id number] 00:00:00 Test Item Value Reference Range Interpretation Comments CHOLESTEROL (test code = 2210) 221 MG/DL TRIGLYCERIDES (test code = 2232) 240 MG/DL HDL CHOLESTEROL (test code = 2220) 43 MG/DL CALC LDL CHOL (test code = 2237) 139 MG/DL RISK RATIO LDL/HDL (test code = 3.23 RATIO 2238) HEMOGLOBIN [id number] 00:00:00 Test Item Value Reference Range Interpretation Comments HEMOGLOBIN A1c (test code = 91093) 6.1 % HEMOGLOBIN [id number] 00:00:00 Test Item Value Reference Range Interpretation Comments HEMOGLOBIN A1c (test code = 28707) 6.1 % LIPID [id number] 00:00:00 Test Item Value Reference Range Interpretation Comments CHOLESTEROL (test code = 2210) 221 MG/DL TRIGLYCERIDES (test code = 2232) 240 MG/DL HDL CHOLESTEROL (test code = 2220) 43 MG/DL CALC LDL CHOL (test code = 2237) 139 MG/DL RISK RATIO LDL/HDL (test code = 3.23 RATIO 2238) CBC W/AUTO [id number] 00:00:00 Test Item Value Reference Range Interpretation [...] NUCLEATED RBCS (test code = 0.00 K/UL 87196) CBC W/AUTO [id number] 00:00:00 Test Item Value Reference Range Interpretation [...] NUCLEATED RBCS (test code = 0.00 K/UL 87329) [id number] 00:00:00 Test Item Value Reference Range Interpretation Comments TSH, THIRD GENERATION (test code 1.240 UIU/ML = 2821) [id number] 00:00:00 Test Item Value Reference Range Interpretation Comments TSH, THIRD GENERATION (test code 1.240 UIU/ML = 2821) VITAMIN [id number] 00:00:00 Test Item Value Reference Range Interpretation Comments VITAMIN B-12 (test code = 2840) >2000 PG/ML VITAMIN [id number] 00:00:00 Test Item Value Reference Range Interpretation Comments VITAMIN B-12 (test code = 2840) >2000 PG/ML VITAMIN D, 25 [id number] 00:00:00 Test Item Value Reference Range Interpretation Comments VITAMIN D, 25 OH (test code = 4958) 51 NG/ML CBC W/AUTO [id number] 00:00:00 Test Item Value Reference Range Interpretation [...] NUCLEATED RBCS (test code = 0.00 K/UL 44659) CBC W/AUTO [id number] 00:00:00 Test Item Value Reference Range Interpretation [...] NUCLEATED RBCS (test code = 0.00 K/UL 08113) [id number] 00:00:00 Test Item Value Reference Range Interpretation Comments TSH, THIRD GENERATION (test code 1.240 UIU/ML = 2821) [id number] 00:00:00 Test Item Value Reference Range Interpretation Comments TSH, THIRD GENERATION (test code 1.240 UIU/ML = 2821) VITAMIN [id number] 00:00:00 Test Item Value Reference Range Interpretation Comments VITAMIN B-12 (test code = 2840) >2000 PG/ML VITAMIN [id number] 00:00:00 Test Item Value Reference Range Interpretation Comments VITAMIN B-12 (test code = 2840) >2000 PG/ML VITAMIN D, 25 [id number] 00:00:00 Test Item Value Reference Range Interpretation Comments VITAMIN D, 25 OH (test code = 4958) 51 NG/ML CULTURE, [id number] 00:00:00 Test Item Value Reference Range Interpretation Comments CULTURE, URINE (test SPECIMEN NUMBER: code = 53420) [id number] CULTURE, [id number] 00:00:00 Test Item Value Reference Range Interpretation Comments CULTURE, URINE (test SPECIMEN NUMBER: code = 95194) [id number] COMPREHENSIVE METABOLIC [id number] 00:00:00 Test Item Value Reference Range Interpretation Comments GLUCOSE (test code = 2217) 123 MG/DL BUN (test code = 2208) 19 MG/DL CREATININE (test code = 2214) 0.86 MG/DL eGFR AMER. (test code 86 ML/MIN/1.73 = 65960) eGFR NON- AMER. (test 74 ML/MIN/1.73 code = 21458) CALC BUN/CREAT (test code = 22 RATIO [...] (test code = 2219) 34 U/L LIPID [id number] 00:00:00 Test Item Value Reference Range Interpretation Comments CHOLESTEROL (test code = 2210) 224 MG/DL TRIGLYCERIDES (test code = 2232) 228 MG/DL HDL CHOLESTEROL (test code = 2220) 46 MG/DL CALC LDL CHOL (test code = 2237) 141 MG/DL RISK RATIO LDL/HDL (test code = 3.07 RATIO 2238) COMPREHENSIVE METABOLIC [id number] 00:00:00 Test Item Value Reference Range Interpretation Comments GLUCOSE (test code = 2217) 123 MG/DL BUN (test code = 2208) 19 MG/DL CREATININE (test code = 2214) 0.86 MG/DL eGFR AMER. (test code 86 ML/MIN/1.73 = 37530) eGFR NON- AMER. (test 74 ML/MIN/1.73 code = 80974) CALC BUN/CREAT (test code = 22 RATIO [...] (test code = 2219) 34 U/L LIPID [id number] 00:00:00 Test Item Value Reference Range Interpretation [...] eGFR AMER. (test code 102 ML/MIN/1.73 = 93949) eGFR NON- AMER. (test 88 ML/MIN/1.73 code = 92664) CALC BUN/CREAT (test code = 16 RATIO [...] eGFR AMER. (test code 102 ML/MIN/1.73 = 77032) eGFR NON- AMER. (test 88 ML/MIN/1.73 code = 43623) CALC BUN/CREAT (test code = 16 RATIO [...]
[2021-10-24 12:24] LABS: Absolute Lymphocytes (CBC) 1.4 K/uL (0.7-4.9); Hematocrit 39.2 % (36.0-45.0); Lymphocytes % 25.6 % (15.3-44.8); MCV 91.7 fL (80-100); MPV 8.3 fL (7.6-11.3); RBC Red Blood Cell Count 4.28 M/uL (3.86-4.86)
[2021-10-24] MEDS ORDERED: VANCOMYCIN 1 GM/VIAL ONE (12:25)
[2021-10-24] MEDS ORDERED: NA CHLORIDE 0.9% 250 ML ONE (12:30)
[2021-10-24 12:43] LABS: Bilirubin Total 0.3 mg/dL (0.2-1.0); Potassium 3.5 mmol/L (3.5-5.1); Protein, Total 7.5 g/dL (6.4-8.2)
[2021-10-24 12:43] LABS: SARS-CoV-2 Antigen Rapid Res Negative (Negative)
--- NOTE | 2021-10-24 12:47 | EDPHYS ---
Physician Documentation [facility] Name: Natacha Villalba Age: 61 yrs Sex: Female : 1960 Arrival Date: 10/24/2021 Time: 10:41 Bed 15 Private MD: ED Physician Nestor Marte HPI: 10/24 12:47 This 61 yrs old Female presents to ER via Ambulatory with complaints of IV antibiotics kb per . 12:48 Pt reports she was admitted here and they did a urine test. States she received a call kb yesterday from Dr Cronin and was told to come back for admission and IV antibiotics due to positive urine culture. Pt states she came yesterday, but it was very busy so she decided to leave and come back today. Onset: The symptoms/episode began/occurred last week. Severity of symptoms: At their worst the symptoms were mild in the emergency department the symptoms are unchanged. The patient has not experienced similar symptoms in the past. The patient has been recently been admitted at [facility]. Historical: - Allergies: 10:48 Codeine; iw 10:48 PENICILLINS; iw - Home Meds: 10:48 Prozac 20 mg Oral cap 1 cap nightly [Active]; metoprolol succinate 100 mg Oral CSpX 1 iw cap once daily [Active]; Plavix 75 mg Oral tab 1 tab once daily [Active]; atorvastatin 40 mg Oral tab 1 tab once daily [Active]; losartan 50 mg Oral tab 1 tab 2 times per day [Active]; aspirin 81 mg Oral tab 81 mg daily [Active]; amlodipine 5 mg tab 1 tab twice a day [Active]; - PMHx: 10:48 High Cholesterol; Hypertension; Tachycardia; iw - Immunization history:: Client reports having NOT received the Covid vaccine. - Social history:: Smoking status: Patient reports the use of cigarette tobacco products. ROS: 11:32 Constitutional: Negative for fever, chills, and weight loss. kb 11:32 Abdomen/GI: Positive for abdominal pain, of the suprapubic area. 11:32 : Positive for burning with urination. 11:32 All other systems are negative. Exam: 11:31 Constitutional: This is a well developed, well nourished patient who is awake, alert, kb and in no acute distress. Head/Face: Normocephalic, atraumatic. ENT: Moist Mucous membranes Cardiovascular: Regular rate and rhythm with a normal S1 and S2. No gallops, murmurs, or rubs. No pulse deficits. Respiratory: Respirations even and unlabored. No increased work of breathing. Talking in full sentences Skin: Warm, dry with normal turgor. Normal color. MS/ Extremity: Pulses equal, no cyanosis. Neurovascular intact. Full, normal range of motion. Neuro: Awake and alert, GCS 15, oriented to person, place, time, and situation. Moves all extremities. Normal gait. Psych: Awake, alert, with orientation to person, place and time. Behavior, mood, and affect are within normal limits. 11:31 Abdomen/GI: Inspection: abdomen appears normal, Bowel sounds: normal, in all quadrants, Palpation: soft, in all quadrants, mild abdominal tenderness, in the suprapubic area. 11:31 ECG was reviewed by the Attending Physician. kb Vital Signs: 10:47 BP 155 / 74; Pulse 81; Resp 16; Temp 97.6; Pulse Ox 96% on R/A; Weight 71.67 kg; Height iw 5 ft. 3 in. (160.02 cm); 12:00 BP 141 / 92; Pulse 92; Resp 14; Pulse Ox 95% on R/A; em6 13:00 BP 105 / 68; Pulse 68; Resp 16; Pulse Ox 92% on R/A; em6 14:00 BP 143 / 73; Pulse 70; Resp 14; Pulse Ox 94% on R/A; em6 15:30 BP 132 / 67; Pulse 61; Resp 18; Pulse Ox 93% on R/A; em6 10:47 Body Mass Index 27.99 (71.67 kg, 160.02 cm) iw MDM: 10:48 Patient medically screened. kb 11:30 Data reviewed: vital signs, nurses notes. Data interpreted: Pulse oximetry: on room air kb is 96 %. Interpretation: normal. Counseling: I had a detailed discussion with the patient and/or guardian regarding: the historical points, exam findings, and any diagnostic results supporting the discharge/admit diagnosis, the need for further work-up and treatment in the hospital. 13:22 ED course: Discussed case with Dr Cronin. States pt was told to return for UTI that can kb only be treated with PCN and vancomycin, but pt is allergic to PCN so she needs IV antibiotics. Dr Cronin spoke with Dr Vidal and Dr Shannon about pt yesterday so they were aware of patient and plan.. 10/24 11:14 Order name: Blood Culture Adult (2) kb 10/24 11:14 Order name: CBC with Diff; Complete Time: 12:35 kb 10/24 11:14 Order name: CMP; Complete Time: 12:44 kb 10/24 11:14 Order name: Lactate; Complete Time: 12:38 kb 10/24 11:14 Order name: Urine Culture kb 10/24 11:34 Order name: SARS RAPID; Complete Time: 12:44 kb 10/24 12:52 Order name: Urine Microscopic Only; Complete Time: 13:24 kb 10/24 12:57 Order name: Urine Dipstick-Ancillary; Complete Time: 13:03 EDMS 10/24 14:26 Order name: Heart Healthy EDMS 10/24 14:26 Order name: CBC with Automated Diff EDMS 10/24 14:26 Order name: CBC with Automated Diff EDMS 10/24 14:26 Order name: Comprehensive Metabolic Panel EDMS 10/24 14:26 Order name: Comprehensive Metabolic Panel EDMS 10/24 11:14 Order name: Cardiac monitoring; Complete Time: 11:31 kb 10/24 11:14 Order name: IV Saline Lock - Large Bore; Complete Time: 12:10 kb 10/24 11:14 Order name: Labs collected and sent; Complete Time: 12:10 kb 10/24 11:14 Order name: O2 Per Protocol; Complete Time: 12:10 kb 10/24 11:14 Order name: O2 Sat Monitoring; Complete Time: 12:10 kb 10/24 11:14 Order name: Urine Dipstick-Ancillary (obtain specimen); Complete Time: 13:01 kb EC:31 Rate is 76 beats/min. Rhythm is regular. QRS [place] is Normal. NE interval is normal at kb 142 msec. QRS interval is normal at 74 msec. QT interval is normal at 443 msec. Administered Medications: 12:00 Drug: vancoMYCIN 1 grams Route: IVPB; Infused Over: 2 hrs; Site: right antecubital; em6 14:00 Follow up: Response: No adverse reaction; IV Status: Completed infusion; IV Intake: em6 250ml Disposition: 21:07 Co-signature as Attending Physician, Nestor Marte DO I was immediately available on-site ms3 in the Emergency Department for consultation in the care of the patient. . Disposition Summary: 10/24/21 12:47 Hospitalization Ordered Hospitalization Status: Observation kb Provider: Joellen Shannon Condition: Stable kb Problem: new kb Symptoms: are unchanged kb Bed/Room Type: Standard Location: [facility](10/24/21 15:32) Room Assignment: [facility]-(10/24/21 15:32) Diagnosis - UTI/ Urinary tract infection, site not specified kb Forms: - Medication Reconciliation Form kb - SBAR form kb Signatures: Dispatcher [employer] EDMS Lisa Garces, DIRECTOR OF STUDENT AID-C DIRECTOR OF STUDENT AID-Adia Duenas RN RN Sonja Jluian, RN RN Nestor Marte DO DO ms3 Viry Feliz, RN RN em6 Corrections: (The following items were deleted from the chart) 15:32 12:47 Telemetry/MedSurg (observation) kb 15:32 12:47 kb iw 15:32 15:32 232 iw iw 15:32 15:32 [facility] iw dw 15:32 15:32 [facility]
--- NOTE | 2021-10-24 12:47 | ER ---
Nurse's Notes [facility] Name: Natacha Villalba Age: 61 yrs Sex: Female : 1960 Arrival Date: 10/24/2021 Time: 10:41 Bed 15 Private MD: Diagnosis: UTI/ Urinary tract infection, site not specified Presentation: 10/24 10:47 Chief complaint: Patient states: was just d/c from hospital a week ago, was called by iw the admitting doctor and told she needed IV antibiotics for a urine culture that was done and to come to ER. Coronavirus screen: At this time, the client does not indicate any symptoms associated with coronavirus-19. Ebola Screen: Patient negative for fever greater than or equal to 101.5 degrees Fahrenheit, and additional compatible Ebola Virus Disease symptoms Patient denies exposure to infectious person. Patient denies travel to an Ebola-affected area in the 21 days before illness onset. No symptoms or risks identified at this time. Initial Sepsis Screen: Does the patient meet any 2 criteria? No. Patient's initial sepsis screen is negative. Does the patient have a suspected source of infection? No. Patient's initial sepsis screen is negative. Risk Assessment: Do you want to hurt yourself or someone else? Patient reports no desire to harm self or others. Onset of symptoms was October 24, 2021. 10:47 Method Of Arrival: Ambulatory iw 10:47 Acuity: UGO 4 iw 10:49 Acuity: UGO 3 iw Historical: - Allergies: 10:48 Codeine; iw 10:48 PENICILLINS; iw - Home Meds: 10:48 Prozac 20 mg Oral cap 1 cap nightly [Active]; metoprolol succinate 100 mg Oral CSpX 1 iw cap once daily [Active]; Plavix 75 mg Oral tab 1 tab once daily [Active]; atorvastatin 40 mg Oral tab 1 tab once daily [Active]; losartan 50 mg Oral tab 1 tab 2 times per day [Active]; aspirin 81 mg Oral tab 81 mg daily [Active]; amlodipine 5 mg tab 1 tab twice a day [Active]; - PMHx: 10:48 High Cholesterol; Hypertension; Tachycardia; iw - Immunization history:: Client reports having NOT received the Covid vaccine. - Social history:: Smoking status: Patient reports the use of cigarette tobacco products. Screenin:30 Abuse screen: Denies threats or abuse. Nutritional screening: No deficits noted. em6 Tuberculosis screening: No symptoms or risk factors identified. Fall Risk IV access (20 points). Total Llyod Fall Scale indicates No Risk (0-24 pts). Assessment: 11:00 General: Appears in no apparent distress. comfortable, Behavior is calm, cooperative. em6 11:00 Pain: Complains of pain in left low back and right low back Pain does not radiate. Pain em6 currently is 5 out of 10 on a pain scale. Quality of pain is described as crampy, Pain began 10/17/2021. Neuro: Nicholas Agitation-Sedation Scale (RASS): 0 - Alert and Calm Level of Consciousness is awake, alert, obeys commands, Oriented to person, place, time, situation. Cardiovascular: Heart tones present Capillary refill < 3 seconds Patient's skin is warm and dry. Respiratory: Airway is patent Respiratory effort is even, unlabored, Respiratory pattern is regular, symmetrical, Breath sounds are clear bilaterally. GI: Abd is non tender X 4 quads Reports lower abdominal pain, nausea. : Reports burning with urination, since 10/22/2021 pain urgency, vaginal bleeding that is spotty. EENT: No signs and/or symptoms were reported regarding the EENT system. Derm: No signs and/or symptoms reported regarding the dermatologic system. Musculoskeletal: Circulation, motion, and sensation intact. 12:00 Reassessment: Patient appears in no apparent distress at this time. Patient and/or em6 family updated on plan of care and expected duration. Pain level reassessed. 13:00 Reassessment: Patient appears in no apparent distress at this time. No changes from em6 previously documented assessment. Patient and/or family updated on plan of care and expected duration. Pain level reassessed. 14:21 Reassessment: Patient appears in no apparent distress at this time. No changes from em6 previously documented assessment. Patient and/or family updated on plan of care and expected duration. Pain level reassessed. 15:30 Reassessment: Patient appears in no apparent distress at this time. No changes from em6 previously documented assessment. Patient and/or family updated on plan of care and expected duration. Pain level reassessed. Vital Signs: 10:47 BP 155 / 74; Pulse 81; Resp 16; Temp 97.6; Pulse Ox 96% on R/A; Weight 71.67 kg; Height iw 5 ft. 3 in. (160.02 cm); 12:00 BP 141 / 92; Pulse 92; Resp 14; Pulse Ox 95% on R/A; em6 13:00 BP 105 / 68; Pulse 68; Resp 16; Pulse Ox 92% on R/A; em6 14:00 BP 143 / 73; Pulse 70; Resp 14; Pulse Ox 94% on R/A; em6 15:30 BP 132 / 67; Pulse 61; Resp 18; Pulse Ox 93% on R/A; em6 10:47 Body Mass Index 27.99 (71.67 kg, 160.02 cm) iw ED Course: 10:41 Patient arrived in ED. mr 10:48 Triage completed. iw 10:48 Lisa Garces FNP-C is PHCP. kb 10:48 Nestor Marte DO is Attending Physician. kb 10:49 Arm band placed on. iw 11:15 Mike Shelby RN is Primary Nurse. jl7 11:30 Patient has correct armband on for positive identification. Placed in gown. Bed in low em6 position. Call light in reach. Side rails up X 1. 11:30 Pulse ox on. NIBP on. Warm blanket given. em6 11:30 Inserted saline lock: 20 gauge in right antecubital area, using aseptic technique. em6 Blood collected. 12:44 Joellen Shannon MD is Hospitalizing Provider. kb 16:18 No provider procedures requiring assistance completed. Patient admitted, IV remains in jl7 place. intact, No redness/swelling at site. Administered Medications: 12:00 Drug: vancoMYCIN 1 grams Route: IVPB; Infused Over: 2 hrs; Site: right antecubital; em6 14:00 Follow up: Response: No adverse reaction; IV Status: Completed infusion; IV Intake: em6 250ml Medication: 11:30 VIS not applicable for this client. em6 Intake: 14:00 IV: 250ml; Total: 250ml. em6 Outcome: 12:47 Decision to Hospitalize by Provider. kb 16:18 Admitted to L \T\ D, accompanied by tech, via wheelchair, room 272, with chart, Report jl7 called to BAUDILIO Carty 16:18 Condition: stable 16:18 Discharge instructions given to patient, Instructed on the need for admit, Demonstrated understanding of instructions. 16:19 Patient left the ED. jl7 Signatures: Lisa Garces FNP-C FNP-Estefania Phan Sonja Julian, RN BAUDILIO iw Mike Shelby RN RN jl7 Viry Feliz RN RN em6 Corrections: (The following items were deleted from the chart) 12:58 12:00 Inserted saline lock: 20 gauge in right antecubital area, using aseptic em6 technique. Blood collected. em6 14:25 12:00 BP 141 / 92; Pulse 92bpm; Resp 14bpm; Pulse Ox 95% Nasal Cannula; em6 em6
[2021-10-24 12:56] LABS: Urine Blood Negative (Negative); Urine Glucose Negative (Negative); Urine Protein Negative (Negative); Urine Specific Gravity >=1.030 (1.005-1.030); Urine pH 5.5 (5.0-7.0)
[2021-10-24 13:24] LABS: Urine Bacteria <20 /HPF (<20); Urine RBC None Seen /HPF (None Seen)
[2021-10-24] MEDS ORDERED: ONDANSETRON 4 MG/2 ML VIAL IV PRN (14:22)
[2021-10-24] MEDS ORDERED: ACETAMINOPHEN 500 MG TAB PO PRN (14:22)
--- NOTE | 2021-10-24 15:28 | P.HP ---
Certification for Inpatient Patient admitted to: Observation With expected LOS: <2 Midnights Patient will require the following post-hospital care: None Practitioner: I am a practitioner with admitting privileges, knowledge of patient current condition, hospital course, and medical plan of care. Services: Services provided to patient in accordance with Admission requirements found in Title 42 Section 412.3 of the Code of Federal Regulations Patient History Date of Service: 10/24/21 Reason for admission: UTI History of Present Illness: Patient is a 61yo who was admitted to the hospital with UTI. Patient had only 10-100,000 CFU/hpf; Repeat Ua on prior collection and today show minimal pyuria. Patient has a strep species that is sensitive to penicillin, but pt with allergy. Will try cephalospins as strep agalact. should be sensitive to this abx. Otherwise, patient with no other complaints. Recent cardiac work-up was negative. Allergies Penicillins Allergy (Mild, Verified 10/24/21 16:47) Hives/Rash codeine Allergy (Verified 10/24/21 16:47) Itching Home Medications: Amlodipine [Norvasc*] 5 mg PO DAILY #30 tab 05/15/20 Aspirin [Aspirin EC 81 MG] 81 mg PO DAILY #90 tablet.dr 05/15/20 Atorvastatin Calcium [Lipitor] 80 mg PO DAILY #30 tablet 05/15/20 Clopidogrel Bisulfate [Plavix*] 75 mg PO DAILY #30 tablet 05/15/20 Folic Acid 1 mg PO DAILY #90 tablet 05/15/20 Losartan Potassium [Cozaar*] 50 mg PO DAILY #30 tablet 05/15/20 Nicotine [Nicoderm*] 21 mg TD DAILY #30 patch.td24 05/15/20 Fluoxetine HCl [Prozac] 1 tab PO DAILY 10/24/21 - Past Medical/Surgical History Diabetic: No -: HTN -: HLD -: CVA (April 2020) -: Tobacco Use Disorder -: Tubal Ligation Psychosocial/ Personal History: Patient unemployed, lives with her daughter - Family History Father Medical History: Heart disease, Hypertension Mother Medical History: Hypertension, Cancer Notes: parkinsons. kidney cancer Brother Medical History: Diabetes Notes: parkinsons - Social History Alcohol use: Yes CD- Drugs: No Caffeine use: No Physical Examination - Studies Laboratory Data (last 24 hrs) 10/24/21 12:05: Sodium 141, Potassium 3.5, BUN 12, Creatinine 0.85, Glucose 149 H, Total Bilirubin 0.3, AST 17, ALT 38, Alkaline Phosphatase 125 H 10/24/21 12:05: WBC 5.3 D, Hgb 13.6, Hct 39.2, Plt Count 256 Assessment & Plan - Problems (Diagnosis) (1) UTI (urinary tract infection) Current Visit: Yes Status: Acute - Plan Continue with IV Rocephin. Spoke with pharmacy about coverage for strep agalactiae. Since sensitive to penicillin which should be able to cover with Rocephin. We will go ahead and start IV Rocephin and see how patient does. Anticipate discharge in the morning. Discharge Plan: Home Plan to discharge in: 24 Hours - Advance Directives Does patient have a Living Will: No Does patient have a Durable POA for Healthcare: No
[2021-10-24 16:37] VITALS: BMI 28.0
[2021-10-24] MEDS: dexAMETHasone 4 MG/ML VIAL IV SCH (17:12)
[2021-10-24] MEDS: MORPHINE 2 MG/ML SYR IV PRN (19:22)
[2021-10-24 19:56] VITALS: O2SAT 95
[2021-10-24] MEDS: CEFTRIAXONE 1,000 MG in NA CHLORIDE 0.9% 50 ML IVPB SCH (20:51)
[2021-10-25] MEDS ORDERED: HYDRALAZINE HCL 20 MG/ML VIAL IV ONE (00:11)
[2021-10-25] MEDS ORDERED: PANTOPRAZOLE 40MG TABLET PO ONE (00:11)
--- NOTE | 2021-10-25 00:16 | P.PN ---
Date of Service: 10/25/21 Received a page that patient was experiencing chest pain. At bedside, patient is resting comfortably. States she feels a burning in the middle of her chest that is associated with some epigastric discomfort. Soda at bedside. No radiation, tachycardia, diaphoresis, shortness of breath, nausea, vomiting. BP 168/98. Ordered PO protonix and will reassess patient's chest pain in 1 hour. If not subsided, I will obtain EKG and troponin.
[2021-10-25] MEDS: dexAMETHasone 4 MG/ML VIAL IV SCH ×2 (00:57→09:52)
[2021-10-25] MEDS: NA CHLORIDE 0.9% 1,000 ML IV SCH ×2 (00:57→09:50)
[2021-10-25] MEDS: MORPHINE 2 MG/ML SYR IV PRN (04:25)
[2021-10-25 06:43] LABS: Absolute Lymphocytes (CBC) 0.8 K/uL (0.7-4.9); Hematocrit 37.2 % (36.0-45.0); Lymphocytes % 11.4 % (15.3-44.8); MCV 92.2 fL (80-100); MPV 8.3 fL (7.6-11.3); RBC Red Blood Cell Count 4.04 M/uL (3.86-4.86)
[2021-10-25 06:52] LABS: Albumin 3.8 g/dL (3.4-5.0); Bilirubin Total 0.2 mg/dL (0.2-1.0); Potassium 4.1 mmol/L (3.5-5.1)
[2021-10-25] MEDS ORDERED: ATORVASTATIN 80 MG TAB PO SCH (09:00)
[2021-10-25] MEDS ORDERED: AMLODIPINE 5 MG TAB PO SCH (09:00)
[2021-10-25] MEDS ORDERED: CLOPIDOGREL 75 MG TABLET PO SCH (09:00)
[2021-10-25] MEDS ORDERED: ASPIRIN EC 81 MG TAB PO SCH (09:00)
[2021-10-25] MEDS ORDERED: FOLIC ACID 1 MG TABLET PO SCH (09:00)
[2021-10-25] MEDS ORDERED: LOSARTAN POTASSIUM 50 MG TABLET PO SCH (09:00)
[2021-10-25] MEDS ORDERED: NICOTINE 21 MG/PAT TD SCH (09:00)
[2021-10-25] MEDS: CEFTRIAXONE 1,000 MG in NA CHLORIDE 0.9% 50 ML IVPB SCH (09:50)
[2021-10-25 12:30] VITALS: BP 141/75; TEMP 98.4
--- NOTE | 2021-10-25 13:22 | P.DS ---
Discharge Date: 10/25/21 Disposition: ROUTINE DISCHARGE Reason for Admission: UTI - Problems (1) UTI (urinary tract infection) Current Visit: Yes Status: Acute Brief History of Present Illness: Patient is a 61yo who was admitted to the hospital with UTI. Patient had only 10-100,000 CFU/hpf; Repeat Ua on prior collection and today show minimal pyuria. Patient has a strep species that is sensitive to penicillin, but pt with allergy. Will try cephalospins as strep agalact. should be sensitive to this abx. Otherwise, patient with no other complaints. Recent cardiac work-up was negative. Hospital Course: Patient is clinically doing much better. Her symptoms are improved. At this time, patient is stable for discharge home with outpatient follow-up. Vital Signs/Physical Exam: Temp Pulse Resp BP Pulse Ox 98.4 F 75 18 141/75 H 93 10/25/21 12:10 10/25/21 12:10 10/25/21 12:10 10/25/21 12:10 10/25/21 04:55 General: Alert, In no apparent distress, Oriented x3 Laboratory Data at Discharge: WBC 7.3 K/uL (4.3-10.9) D 10/25/21 05:58 Hgb 12.9 g/dL (12.0-15.0) 10/25/21 05:58 Hct 37.2 % (36.0-45.0) 10/25/21 05:58 Plt Count 230 K/uL (152-406) 10/25/21 05:58 Sodium 138 mmol/L (136-145) 10/25/21 05:58 Potassium 4.1 mmol/L (3.5-5.1) 10/25/21 05:58 BUN 11 mg/dL (7-18) 10/25/21 05:58 Creatinine 0.84 mg/dL (0.55-1.3) 10/25/21 05:58 Glucose 140 mg/dL (74-106) H 10/25/21 05:58 Total Bilirubin 0.2 mg/dL (0.2-1.0) 10/25/21 05:58 AST 13 U/L (15-37) L 10/25/21 05:58 ALT 30 U/L (12-78) 10/25/21 05:58 Alkaline Phosphatase 115 U/L (45-117) 10/25/21 05:58 Home Medications: Amlodipine [Norvasc*] 5 mg PO DAILY #30 tab 05/15/20 Aspirin [Aspirin EC 81 MG] 81 mg PO DAILY #90 tablet. 05/15/20 Atorvastatin Calcium [Lipitor] 80 mg PO DAILY #30 tablet 05/15/20 Clopidogrel Bisulfate [Plavix*] 75 mg PO DAILY #30 tablet 05/15/20 Folic Acid 1 mg PO DAILY #90 tablet 05/15/20 Losartan Potassium [Cozaar*] 50 mg PO DAILY #30 tablet 05/15/20 Nicotine [Nicoderm*] 21 mg TD DAILY #30 patch.td24 05/15/20 Fluoxetine HCl [Prozac] 1 tab PO DAILY 10/24/21 Cefdinir [Omnicef] 300 mg PO BID #20 10/25/21 Cefdinir [Omnicef] 300 mg PO Q12H #20 10/25/21 Pantoprazole [Protonix Tab] 40 mg PO DAILY #30 tab 10/25/21 Tramadol HCl [Ultram] 50 mg PO Q12H PRN #30 10/25/21 predniSONE [Prednisone*] 20 mg PO BID #11 tab 10/25/21 predniSONE [Prednisone*] 20 mg PO BID #11 tab 10/25/21 traMADol HCL [Ultram*] 50 mg PO Q6H PRN #30 tab 10/25/21 New Medications: Cefdinir [Omnicef] 300 mg PO BID #20 Cefdinir [Omnicef] 300 mg PO Q12H #20 predniSONE [Prednisone*] 20 mg PO BID #11 tab predniSONE [Prednisone*] 20 mg PO BID #11 tab Pantoprazole [Protonix Tab] 40 mg PO DAILY #30 tab Tramadol HCl [Ultram] 50 mg PO Q12H PRN #30 PRN Reason: Pain Scale 5-7 (Moderate) traMADol HCL [Ultram*] 50 mg PO Q6H PRN #30 tab PRN Reason: Pain Physician Discharge Instructions: PROBLEM: Urinary track infection GOAL: Clear understanding of disease process INSTRUCTIONS: Diet:Regular Activity: As tolerated Pneumonia Vaccine Indicated: No Pneumonia Vaccine Given: Date Given: Diet: Regular Activity: Fall precautions Followup: NONE,NONE [Primary Care Provider] - Time spent managing pt's care (in minutes): 35
--- NOTE | 2021-10-29 08:30 | EKG ---
Test Date: 2021-10-24 Test Time: 11:28:49 Customer Engagement Analyst: JOANNA MEASUREMENT RESULTS: Intervals: Rate: 76 ID: [id number] QRSD: 74 QT: 394 QTc: 443 [place]: P: 43 ID: [id number] QRS: 32 T: 52 INTERPRETIVE STATEMENTS: Normal sinus rhythm Normal ECG Compared to ECG 10/15/2021 09:53:48 No significant changes Electronically Signed On 10-29-21 08:13:24 CDT by Kenneth Green
== END 2021-10-25 14:35 | disposition home or self-care (01) ==
LOC: ER 10:39 → ERHOLD 14:22 → 2ND-WC 15:56
PROVIDERS: ADMIT Hospitalist; ATTEND Hospitalist
DX: N39.0 Urinary tract infection, site not specified (principal); B95.1 Streptococcus, group B, as the cause of diseases classified elsewhere; R07.9 Chest pain, unspecified; I10 Essential (primary) hypertension; E78.5 Hyperlipidemia, unspecified; F17.210 Nicotine dependence, cigarettes, uncomplicated; Z79.82 Long term (current) use of aspirin; Z79.52 Long term (current) use of systemic steroids; Z79.02 Long term (current) use of antithrombotics/antiplatelets; Z79.899 Other long term (current) drug therapy; Z88.0 Allergy status to penicillin; Z88.5 Allergy status to narcotic agent; Z86.73 Personal history of transient ischemic attack (TIA), and cerebral infarction without residual deficits; Z28.310 Unvaccinated for COVID-19; Z20.822 Contact with and (suspected) exposure to COVID-19; Z82.49 Family history of ischemic heart disease and other diseases of the circulatory system; Z82.0 Family history of epilepsy and other diseases of the nervous system; Z80.51 Family history of malignant neoplasm of kidney; Z83.3 Family history of diabetes mellitus
CPT/HCPCS: 36415; 80053; 81003; 81015; 83605; 85025; 87040; 87086; 87088; 87811; 93005; 96365; 96366; 99285; G0378; J0360; J1100; J2270; J3370; J7030; J7050